=== PATIENT | male | born 1945 | race Caucasian/White ===

== ENCOUNTER 2018-08-11 08:44 | Emergency (ER) | payer MEDICARE ==
[2018-08-11 09:40] LABS: ALT (SGPT) 15 U/L (8-55); AST (SGOT) 19 U/L (5-34); Albumin 3.9 g/dL (3.4-4.8); Alkaline Phosphatase 69 U/L (40-150); Anion Gap 14 mmol/L (10-20); BUN (Urea Nitrogen) 18 mg/dL (8.4-25.7); Bilirubin, Total 0.6 mg/dL (0.2-1.2); CK (CPK) 168 U/L (30-200); Calc. Creatinine Clearance 0 mL/min (70-130); Calcium 9.8 mg/dL (7.8-10.44); Carbon Dioxide 24 mmol/L (23-31); Chloride 105 mmol/L (98-107); Estimated GFR-MDRD 68; Globulin 2.8 g/dL (2.4-3.5); Glucose 127 mg/dL (83-110); Potassium 4.3 mmol/L (3.5-5.1); Protein, Total 6.7 g/dL (5.8-8.1); Sodium 139 mmol/L (136-145)
[2018-08-11 09:44] LABS: CKMB 2.6 ng/mL (0-6.6); Troponin I Less than 0.010 ng/mL (< 0.028)
[2018-08-11 09:45] LABS: Band 10 % (5-11); Eosinophils 3 % (0-10); Hemoglobin 15.1 g/dL (14.0-18.0); Lymphocytes 10 % (21-51); MDiff Complete? YES; Mean Corpuscular HGB CONC 31.7 g/dL (32.0-36.0); Mean Corpuscular Hemoglobin 29.4 pg (27.0-31.0); Mean Corpuscular Volume 92.8 fL (78.0-98.0); Monocytes 6 % (0-10); Neutrophil 68 % (42-75); Platelet Count 190 thou/uL (130-400); RBC Distribution Width 13.4 % (11.5-14.5); RBC Morphology Normal; Reactive Lymphocytes 2 % (0-10); Red Blood Cell (RBC) Count 5.13 mill/uL (4.70-6.10); White Blood Cell (WBC) Count 10.7 thou/uL (4.8-10.8)
[2018-08-11] MEDS ORDERED: methylPREDNISolone Sod Succ/PF 125 MG/2 ML VIAL ONE (09:58)
--- NOTE | 2018-08-11 10:02 | RAD ---
CHEST 1 VIEW: HISTORY: Chest pain. COMPARISON: Radiograph 11/21/2017. FINDINGS: Heart size is enlarged. Mild pulmonary venous congestion. Calcified granuloma right mid lung. IMPRESSION: Mild cardiomegaly. POS: [facility]
[2018-08-11 10:49] LABS: INR-International Normal Ratio 2.6; PTT 41.7 SEC (22.9-36.1); Prothrombin Time 27.5 SEC (12.0-14.7)
== END 2018-08-11 12:25 | disposition home or self-care (01) ==
LOC: ERS 08:44
DX: J40 Bronchitis, not specified as acute or chronic (principal); I48.91 Unspecified atrial fibrillation; E78.5 Hyperlipidemia, unspecified; I25.10 Atherosclerotic heart disease of native coronary artery without angina pectoris; I11.0 Hypertensive heart disease with heart failure; I50.9 Heart failure, unspecified; F17.220 Nicotine dependence, chewing tobacco, uncomplicated; Z79.899 Other long term (current) drug therapy; Z79.82 Long term (current) use of aspirin; Z79.01 Long term (current) use of anticoagulants
CPT/HCPCS: 36415; 71045; 80053; 82553; 83880; 84484; 85025; 85610; 85730; 93005; 94640; 94760; 96374; J2930; J7620

== ENCOUNTER 2018-08-17 16:46 | Inpatient (IN) | payer MEDICARE ==
[2018-08-17] MEDS ORDERED: Albuterol Sulfate 2.5 mg/3 ml Neb ONE (17:07)
[2018-08-17 17:18] LABS: Actual Bicarbonate (HCO3a) 28.7 mEq/L (22-28); Analyzer IN Cardio ER; Base Excess (BEa) 4.5 mEq/L (-2.0 to +3.0); CO2 Tension 41.3 mmHg (35.0-45.0); Calcium, Ionized 1.23 mmol/L (1.12-1.30); Carboxyhemoglobin (COHb) 0.5 gm% (0.0-3.0); Hemoglobin (Hb) 16.2 g/dL (14.0-18.0); O2 Tension (PaO2) 79.7 mmHg (> 70.0); Potassium - ABG Lab 3.65 mmol/L (3.70-5.30); pH, Arterial 7.46 (7.35-7.45)
[2018-08-17] MEDS ORDERED: Magnesium 2 GM/50 ML BAG (IN WATER) ONE (17:24)
[2018-08-17] MEDS ORDERED: Dexamethasone 10 MG/ML VIAL ONE (17:24)
[2018-08-17 17:27] LABS: ALV-art Gradient 18.405 (0-20); Puncture Site RRA
[2018-08-17 17:48] LABS: #Basophils 0.1 thou/uL (0.0-0.2); #Eosinphils 0.1 thou/uL (0.0-0.7); #Lymphocytes 1.9 thou/uL (1.20-3.40); #Monocytes 0.7 thou/uL (0.11-0.59); #Neutrophils 12.5 thou/uL (1.40-6.50); %Basophils 0.4 % (0.0-1.0); %Eosinophils 0.7 % (0.0-10.0); %Lymphocytes 12.4 % (21.0-51.0); %Monocytes 4.8 % (0.0-10.0); %Neutrophils 81.7 % (42.0-75.0); Hemoglobin 15.5 g/dL (14.0-18.0); Mean Corpuscular HGB CONC 31.2 g/dL (32.0-36.0); Mean Corpuscular Hemoglobin 28.7 pg (27.0-31.0); Mean Corpuscular Volume 91.9 fL (78.0-98.0); Mean Platelet Volume 6.7 fL (7.4-10.4); Platelet Count 313 thou/uL (130-400); RBC Distribution Width 13.3 % (11.5-14.5); Red Blood Cell (RBC) Count 5.41 mill/uL (4.70-6.10); White Blood Cell (WBC) Count 15.3 thou/uL (4.8-10.8)
--- NOTE | 2018-08-17 18:00 | RAD ---
PORTABLE FRONTAL CHEST RADIOGRAPH: 08/17/2018 HISTORY: Dyspnea. History of pneumonia. COMPARISON: 08/11/2018 FINDINGS: The lungs are hyperinflated. The cardiac silhouette is prominent. There is increased linear interst itial density bilaterally. These findings are stable and suggest COPD in the proper clinical setting . There is atherosclerotic calcification of the aortic arch. No pneumothorax, pleural fluid, focal consolidation, or alveolar edema. IMPRESSION: 1. Chronic findings, as detailed above. 2. No focal consolidation or alveolar edema. POS: [facility]
[2018-08-17] MEDS ORDERED: Azithromycin 500 MG VIAL ONE (18:01)
[2018-08-17 18:12] LABS: ALT (SGPT) 43 U/L (8-55); AST (SGOT) 20 U/L (5-34); Albumin 3.7 g/dL (3.4-4.8); Alkaline Phosphatase 67 U/L (40-150); Anion Gap 14 mmol/L (10-20); BUN (Urea Nitrogen) 30 mg/dL (8.4-25.7); Bilirubin, Total 0.8 mg/dL (0.2-1.2); CK (CPK) 122 U/L (30-200); Calc. Creatinine Clearance 0 mL/min (70-130); Calcium 9.8 mg/dL (7.8-10.44); Carbon Dioxide 27 mmol/L (23-31); Chloride 103 mmol/L (98-107); Estimated GFR-MDRD 64; Globulin 2.7 g/dL (2.4-3.5); Glucose 164 mg/dL (83-110); Lipase 17 U/L (8-78); Potassium 3.6 mmol/L (3.5-5.1); Protein, Total 6.4 g/dL (5.8-8.1); Sodium 140 mmol/L (136-145)
[2018-08-17 18:13] LABS: CKMB 2.4 ng/mL (0-6.6); Troponin I Less than 0.010 ng/mL (< 0.028)
[2018-08-17] MEDS ORDERED: Clindamycin/D5W 900 mg/50 ml Premix Bag ONE (19:32)
[2018-08-17 20:31] LABS: Bilirubin Negative (Negative); Blood, Urine Negative (Negative); Clarity CLEAR (Clear); Glucose, Urine (Dipstick) 100 mg/dL (Negative); Leukocyte Trace (Negative); Nitrite Negative (Negative); Protein, Urine (Dipstick) Negative (Neg-Trace); Specific Gravity, Urine 1.024 (1.002-1.036); pH, Urine 5.5 (5.0-9.0)
[2018-08-17 20:32] LABS: Bacteria/HPF None Seen HPF (None Seen); Hyaline Casts/LPF 0-3 HYALINE CAST LPF (0-3 Hyaline); RBC/HPF 0-3 HPF (0-3); Squamous Epithelial None Seen HPF (0-3); WBC/HPF 0-3 HPF (0-3)
[2018-08-17] MEDS ORDERED: Nitroglycerin 0.4 MG TAB (25 Tab Bottle) SL PRN (21:01)
[2018-08-17] MEDS ORDERED: traMADol HCl 50 MG TAB PO PRN (21:01)
[2018-08-17] MEDS ORDERED: Calcium Carbonate 500 MG ChewTAB PO PRN (21:03)
[2018-08-17] MEDS ORDERED: Ondansetron ODT 4 MG TAB PO PRN (21:03)
[2018-08-17] MEDS ORDERED: Ondansetron PF 4 MG/2 ML Vial IVP PRN (21:03)
[2018-08-17] MEDS ORDERED: Acetaminophen 325 MG TAB PO PRN (21:03)
[2018-08-17] MEDS ORDERED: Benzonatate 100 MG CAP PO PRN (21:06)
[2018-08-17 21:54] VITALS: BMI 52.2
--- NOTE | 2018-08-18 00:06 | HP ---
CHIEF COMPLAINT: Shortness of breath, cough. HISTORY OF PRESENT ILLNESS: This is a 73-year-old male with past medical history of coronary artery disease, atrial fibrillation, status post ablation, hypertension, obesity, heart failure presenting with shortness of breath and cough. Per the patient, he has been having productive cough in the past week. Patient states that he was in the ED and was evaluated for the cough and patient states that he was offered to be admitted to the hospital; however, patient states that he was not willing to stay, so he went home and was prescribed p.o. antibiotics. Patient states that he took the antibiotics as was prescribed and he followed all the instructions. However, patient is now having severe cough with productive sputum, greenish in color, and cough has really worsened, so that prompted him to come to the ED once again. At this point, patient endorses subjective fevers, productive cough, shortness of breath , bilateral lower edema. Otherwise, patient denies any dizziness, headaches, chills, chest pain, palpitations, abdominal pain, hematochezia, hematuria, melena. REVIEW OF SYSTEMS: Positive for productive cough, subjective fevers, bilateral lower extremity edema. Otherwise, as documented in the HPI. All other systems were reviewed and are negative. PAST MEDICAL HISTORY: Heart failure; hypertension; obesity; coronary artery disease; atrial fibrillation, status post ablation on warfarin; arthritis of the knee; and gout. FAMILY HISTORY: Reviewed and noncontributory to this visit. PAST SURGICAL HISTORY: Ablation of atrial fibrillation in the s, bowel perforation, and total umbilical hernia repairs. PSYCHIATRIC HISTORY: No psych history. SOCIAL HISTORY: Patient states that he quit smoking 35 years ago; however, patient was dipping and he stopped dipping for some time, but he started dipping once again. Patient also states that he quit alcohol 40 years ago and he does not do any illicit drugs. Patient lives at home with his grand kids. CURRENT MEDICATIONS: Patient takes lisinopril/hydrochlorothiazide 20/12.5 mg, aspirin 81 mg, warfarin 7.5 mg, Nitrostat 0.4 sublingual, furosemide 20 mg, carvedilol 6.25 mg, doxycycline 100 mg. ALLERGIES: Patient is allergic to PENICILLINS and IODINE. PHYSICAL EXAMINATION: VITAL SIGNS: Blood pressure is 209/108, heart rate of 90, respiratory rate of 20, temperature of 98.7, O2 sat of 96. GENERAL: Patient is sitting in his bed, does not appear to be in any acute distress. Patient is speaking full sentences. HEENT: Normocephalic, atraumatic. Pupils are equally round and react to light. Extraocular movements are intact. No scleral icterus. No conjunctival pallor. NECK: Supple. No JVD. Full range of motion. No tenderness. LUNGS: Patient has bilateral wheezes at the anterior lung sandy and rales at the posterior lung sandy. CARDIOVASCULAR: S1, S2, regular rate and rhythm. No murmurs, no gallops or rubs appreciated. ABDOMEN: Obese abdomen, soft, nontender, and nondistended. EXTREMITIES: Patient has 5/5 upper extremity strength, good pulses bilaterally at the radial pulse. For the lower extremities, patient has 5/5 lower extremity strength. Patient has 3+ pitting edema and patient is wearing compression stockings. PSYCHIATRIC: Alert and oriented x3, not in acute distress. HEENT: Normal affect. NEUROLOGIC: Cranial nerves II through XII grossly intact. No neurologic deficits noted. SKIN: Warm, dry, and intact. LABORATORY DATA: WBC is 15.3, hemoglobin is 15.5, hematocrit is 49.8, platelets 313. ABG: pH is 7.46, pCO2 is 41, pO2 is 79.7. Sodium is 140, potassium is 3.6, chloride is 103, carbon dioxide of 27, anion gap of 14, BUN is 30, creatinine is 1.13, GFR is 64, glucose 164. Lactic acid is 1.9, AST 20, ALT is 43, alkaline phosphatase 67. Creatine kinase is 122. BNP is 57, lipase of 17. Urinalysis negative for nitrite, trace leukoesterase. ASSESSMENT AND PLAN: This is a 73-year-old male being admitted for: 1. Healthcare-associated pneumonia. Patient was recently in the hospital a week ago and patient was given p.o. antibiotics. Patient states that he really took the antibiotics, but he has not getting better. Patient states that shortness of breath has been at the worse. At this point, we started patient on antibiotics. We are going to continue patient on antibiotics. We are going to follow up cultures. We will follow up with patient's current management. 2. Coronary artery disease, currently stable. We will monitor the patient. 3. Chronic heart failure, likely systolic. At this point, we have ordered an echo. We will follow up on echo results. We will continue patient on current management. 4. Chronic obstructive pulmonary disease, exacerbation. We will continue patient on DuoNeb and we will do steroids p.r.n. 5. History of gout. We will continue to monitor the patient accordingly. 6. Atrial fibrillation, status post ablation. We will continue patient on warfarin. 7. Deep venous thrombosis and gastrointestinal prophylaxis. MTDD
[2018-08-18 04:42] LABS: #Eosinphils 0.1 thou/uL (0.0-0.7); #Lymphocytes 0.7 thou/uL (1.20-3.40); #Monocytes 0.1 thou/uL (0.11-0.59); #Neutrophils 10.6 thou/uL (1.40-6.50); %Basophils 0.1 % (0.0-1.0); %Eosinophils 0.5 % (0.0-10.0); %Lymphocytes 6.1 % (21.0-51.0); %Monocytes 0.9 % (0.0-10.0); %Neutrophils 92.5 % (42.0-75.0); Mean Corpuscular HGB CONC 30.5 g/dL (32.0-36.0); Mean Corpuscular Hemoglobin 28.2 pg (27.0-31.0); Mean Corpuscular Volume 92.6 fL (78.0-98.0); Mean Platelet Volume 7.1 fL (7.4-10.4); Platelet Count 268 thou/uL (130-400); RBC Distribution Width 13.4 % (11.5-14.5); Red Blood Cell (RBC) Count 5.33 mill/uL (4.70-6.10); White Blood Cell (WBC) Count 11.5 thou/uL (4.8-10.8)
[2018-08-18 04:43] LABS: INR-International Normal Ratio 2.6; Prothrombin Time 27.8 SEC (12.0-14.7)
[2018-08-18 04:49] LABS: Anion Gap 11 mmol/L (10-20); BUN (Urea Nitrogen) 28 mg/dL (8.4-25.7); Calc. Creatinine Clearance 148 mL/min (70-130); Calcium 9.6 mg/dL (7.8-10.44); Carbon Dioxide 29 mmol/L (23-31); Chloride 104 mmol/L (98-107); Estimated GFR-MDRD 62; Glucose 216 mg/dL (83-110); Potassium 4.1 mmol/L (3.5-5.1); Sodium 140 mmol/L (136-145)
[2018-08-18] MEDS: Furosemide 40 MG TAB PO SCH ×2 (05:07→12:57)
[2018-08-18] MEDS: Aztreonam 1 GM in Sodium Chloride 0.9% 100 ML IVPB SCH ×3 (05:15→21:58)
[2018-08-18] MEDS: Famotidine 20 MG TAB PO SCH ×2 (10:19→21:58)
[2018-08-18] MEDS: Colchicine 0.6 MG TAB PO SCH ×2 (10:19→21:58)
[2018-08-18] MEDS: Aspirin 81 mg Enteric Coated Tablet PO SCH (10:19)
[2018-08-18] MEDS: Carvedilol 6.25 MG TAB PO SCH ×2 (10:19→21:58)
[2018-08-18] MEDS: Famotidine/PF 20 mg/2ml Vial SLOW IVP SCH ×2 (10:20→21:58)
[2018-08-18] MEDS: Lisinopril/Hydrochlorothiazide 20 mg/12.5 mg Tablet PO SCH ×2 (10:20→21:57)
[2018-08-18] MEDS: Warfarin Sodium 7.5 MG TAB PO SCH (17:35)
[2018-08-18] MEDS: Azithromycin 500 MG in Sodium Chloride 0.9% 250 ML 250 ML IVPB SCH (17:35)
--- NOTE | 2018-08-18 21:58 | PDOC.PN ---
- Subjective Encounter Start Date: 08/18/18 Encounter Start Time: 08:10 Doing ok. Reports he has been having significant [place]. Still has some cough with discolored sputum. Has had some swelling in the LE's. Has a "knot" in the pannus of his abdomen. Says his main goal is to get to the point he can get a bariatric surgery. - Objective Resuscitation Status: Resuscitation Status FULL:Full Resuscitation Vital Signs & Weight: Vital Signs (12 hours) Temp Pulse Resp BP BP Pulse Ox 08/18/18 18:53 81 20 98 08/18/18 16:00 98.0 F 75 20 147/79 H 99 08/18/18 14:20 80 16 08/18/18 12:36 98.0 F 82 20 150/76 H 95 08/18/18 10:20 77 165/93 H 08/18/18 10:19 165/93 H 08/18/18 10:11 90 16 Weight Weight 406 lb 14.4 oz I&O: 08/17/18 08/18/18 08/19/18 06:59 06:59 06:59 Intake Total 600 660 Output Total 400 Balance 200 660 Result Diagrams: 08/18/18 04:06 08/18/18 04:06 Phys Exam - Physical Examination Constitutional: NAD Morbidly obese. Respiratory: no wheezing, no rales, no rhonchi, clear to auscultation bilateral Compromised exam due to obesity. Cardiovascular: RRR, no significant murmur Gastrointestinal: soft, non-tender Obese. Indurated area at the mid-left pendulous abd. pannus. No erythema. No fluctuance. No drainage. 2+ edema BLE Neurological: non-focal, normal sensation Psychiatric: normal affect, A&O x 3 Dx/Plan (1) Bronchitis Code(s): J40 - BRONCHITIS, NOT SPECIFIED ACUTE OR CHRONIC Status: Acute Comment: Initially looked like pneumonia, but CXR is clear. Continue abx. (2) Atrial fibrillation Code(s): I48.91 - UNSPECIFIED ATRIAL FIBRILLATION Status: Chronic Qualifiers: Atrial fibrillation type: paroxysmal Qualified Code(s): I48.0 - Paroxysmal atrial fibrillation Comment: S/P ablation. NSR now. Still on anticoag. (3) Coronary artery disease Code(s): I25.10 - ATHSCL HEART DISEASE OF [place] CORONARY ARTERY W/O ANG PCTRS Status: Chronic Comment: Had a assistant signal maintainer, but has moved away. He has not had a local assistant signal maintainer for a long while. (4) Hypertension Code(s): I10 - ESSENTIAL (PRIMARY) HYPERTENSION Status: Chronic Comment: zeny Harp. (5) Morbid obesity with BMI of 45.0-49.9, adult Code(s): E66.01 - MORBID (SEVERE) OBESITY DUE TO EXCESS CALORIES; Z68.42 - BODY MASS INDEX (BMI) 45.0-49.9, ADULT Status: Chronic (6) CHF (congestive heart failure) Code(s): I50.9 - HEART FAILURE, UNSPECIFIED Status: Acute Comment: veronica Harp. Echo pending. Cardiology consult. BNP is normal. (7) COPD (chronic obstructive pulmonary disease) Status: Acute Comment: Steroids, nebs. - Plan * .
--- NOTE | 2018-08-19 01:39 | CON ---
DATE OF CONSULTATION: 08/18/2018 REASON FOR CONSULTATION: Atrial fibrillation, shortness of breath, morbid obesity. HISTORY OF PRESENT ILLNESS: Mr. Acuña is a 73-year-old man. He was admitted to hospital with diff iculty breathing and thought to have pneumonia and is receiving antibiotics. The patient states he h as had atrial fibrillation since he is in his 20s. He had an atrial fibrillation ablation many years ago, but apparently he is in chronic atrial fibrillation, is on Coumadin. The patient is receiving intravenous antibiotics. PAST MEDICAL HISTORY: 1. Chronic atrial fibrillation. 2. Morbid obesity. He says he wishes to be considered for bariatric surgery. 3. 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 4. History of gout. HOME MEDICATIONS: 1. Furosemide. 2. Carvedilol. 3. Warfarin. 4. Lisinopril. 5. HCT. 6. Aspirin. 7. Colchicine. REVIEW OF SYSTEMS: Constitutional: Positive for severe obesity. Vision: No changes. Hearing: No changes. Pulmonary: No cough or wheezing. Gastrointestinal: No nausea, vomiting, or diarrhea. S kin: No rashes. Neurologic: No unilateral weakness or numbness. Psychiatric: No unusual depressi on or anxiety. Hematologic: No unusual bruising. PHYSICAL EXAMINATION: GENERAL: This is a pleasant, but extremely overweight gentleman, 6 feet 2 inches tall, so I think wh at he estimated 406 pounds, BMI 52, morbid obesity. VITAL SIGNS: Blood pressure 147/79, pulse 80, irregular. LUNGS: Clear. CARDIAC: Normal S1, normal S2, but it is irregular. No murmur, rub, or gallop. Heart sounds are di stant. ABDOMEN: Severe obesity. EXTREMITIES: No clubbing or cyanosis. There is moderate edema. I do not feel peripheral pulses, al though it has edema and severe obesity, it is difficult to feel pulses. PERTINENT LABORATORY AND X-RAY FINDINGS: Blood gas pH 7.46, pCO2 of 41, pO2 of 79.7. INR is 2.6, cr eatinine is 1.16. Potassium is 4.1. EKG reveals atrial fibrillation with a controlled ventricular r esponse. Echocardiogram reveals atrial fibrillation with normal left ventricular function. ASSESSMENT: 1. Chronic atrial fibrillation. 2. Severe morbid obesity. 3. BNP is normal. PLAN: 1. Continue current medical regimen with antibiotics. 2. He also receiving some diuretics. 3. He may wish to be considered for bariatric surgery. Stress testing will not be feasible at this weight. Cardiac catheterization from the radial artery could be done as an outpatient.
[2018-08-19] MEDS: Aztreonam 1 GM in Sodium Chloride 0.9% 100 ML IVPB SCH ×3 (05:40→22:10)
[2018-08-19] MEDS: Furosemide 40 MG TAB PO SCH ×2 (05:42→14:07)
[2018-08-19 08:35] LABS: INR-International Normal Ratio 2.7
[2018-08-19] MEDS: Colchicine 0.6 MG TAB PO SCH ×2 (08:47→22:15)
[2018-08-19] MEDS: Carvedilol 6.25 MG TAB PO SCH ×2 (08:47→22:14)
[2018-08-19] MEDS: Aspirin 81 mg Enteric Coated Tablet PO SCH (08:47)
[2018-08-19] MEDS: Famotidine 20 MG TAB PO SCH ×2 (08:47→22:15)
[2018-08-19] MEDS: Lisinopril/Hydrochlorothiazide 20 mg/12.5 mg Tablet PO SCH ×2 (08:49→22:14)
[2018-08-19] MEDS: Famotidine/PF 20 mg/2ml Vial SLOW IVP SCH ×2 (08:52→22:15)
--- NOTE | 2018-08-19 10:43 | PDOC.PN ---
- Subjective Encounter Start Date: 08/19/18 Encounter Start Time: 09:00 -: old records requested/rev Patient seen and examined. No new complaints. No overnight events pt feels better, less dyspnea - Objective Resuscitation Status: Resuscitation Status FULL:Full Resuscitation MAR Reviewed: Yes Vital Signs & Weight: Vital Signs (12 hours) Temp Pulse Resp BP BP Pulse Ox 08/19/18 10:19 80 14 08/19/18 08:49 87 183/86 H 08/19/18 08:47 183/86 H 08/19/18 07:58 98.0 F 87 18 183/86 H 93 L 08/19/18 06:34 80 14 08/19/18 05:00 97.5 F L 63 18 158/74 H 95 08/19/18 02:02 99 20 93 L Weight Weight 408 lb 1 oz I&O: 08/18/18 08/19/18 08/20/18 06:59 06:59 06:59 Intake Total 600 980 Output Total 400 800 Balance 200 180 Result Diagrams: 08/18/18 04:06 08/18/18 04:06 Phys Exam - Physical Examination Constitutional: NAD HEENT: PERRLA, moist MMs, sclera anicteric Neck: no JVD, supple Respiratory: no wheezing, no rales, no rhonchi limited due to obesity Cardiovascular: RRR, no significant murmur, no rub limited due to obesity Gastrointestinal: soft, non-tender, no distention, positive bowel sounds morbid obesity Musculoskeletal: pulses present, edema present Neurological: non-focal, normal sensation, moves all 4 limbs Lymphatic: no nodes Psychiatric: normal affect, A&O x 3 Skin: no rash, normal turgor Dx/Plan (1) Bronchitis Code(s): J40 - BRONCHITIS, NOT SPECIFIED ACUTE OR CHRONIC Status: Acute Comment: (2) Pneumonia Code(s): J18.9 - PNEUMONIA, UNSPECIFIED ORGANISM Status: Acute (3) Atrial fibrillation Code(s): I48.91 - UNSPECIFIED ATRIAL FIBRILLATION Status: Chronic Qualifiers: Atrial fibrillation type: paroxysmal Qualified Code(s): I48.0 - Paroxysmal atrial fibrillation Comment: (4) COPD (chronic obstructive pulmonary disease) Status: Chronic Comment: Steroids, nebs. (5) Chronic venous stasis dermatitis Code(s): I83.10 - VARICOSE VEINS OF [place] LOWER EXTREMITY WITH INFLAMMATION Status: Chronic (6) Coronary artery disease Code(s): I25.10 - ATHSCL HEART DISEASE OF [place] CORONARY ARTERY W/O ANG PCTRS Status: Chronic Comment: Had a engineering technical analyst, but has moved away. He has not had a local engineering technical analyst for a long while. (7) Gout Code(s): M10.9 - GOUT, UNSPECIFIED Status: Chronic Qualifiers: Gout site: foot Chronicity: acute Laterality: right Qualified Code(s): M10.9 - Gout, unspecified (8) Hypertension Code(s): I10 - ESSENTIAL (PRIMARY) HYPERTENSION Status: Chronic Comment: (9) Morbid obesity with BMI of 50.0-59.9, adult Code(s): E66.01 - MORBID (SEVERE) OBESITY DUE TO EXCESS CALORIES; Z68.43 - BODY MASS INDEX (BMI) 50-59.9, ADULT Status: Chronic - Plan cont current plan of care, continue antibiotics, respiratory therapy * continue IV antibiotics today * reduce solumedrol today * continue lasix * medication reviewed as below * symptomatic treatment * outpt cardiac cath * pt is improving. Review of Systems - Review of Systems Constitutional: negative: fever, chills, sweats, weakness, malaise, other Eyes: negative: Pain, Vision Change, Conjunctivae Inflammation, Eyelid Inflammation, Redness, Other ENT: negative: Ear Pain, Ear Discharge, Nose Pain, Nose Discharge, Nose Congestion, Mouth Pain, Mouth Swelling, Throat Pain, Throat Swelling, Other Respiratory: Cough, SOB with Excertion. negative: Dry, Shortness of Breath, Hemoptysis, Pleuritic Pain, Sputum, Wheezing Cardiovascular: negative: chest pain, palpitations, orthopnea, paroxysmal nocturnal dyspnea, edema, light headedness, other Gastrointestinal: negative: Nausea, Vomiting, Abdominal Pain, Diarrhea, Constipation, Melena, Hematochezia, Other Genitourinary: negative: Dysuria, Frequency, Incontinence, Hematuria, Retention , Other Musculoskeletal: negative: Neck Pain, Shoulder Pain, Arm Pain, Back Pain, Hand Pain, Leg Pain, Foot Pain, Other Skin: negative: Rash, Lesions, Paco, Bruising, Other - Medications/Allergies Allergies/Adverse Reactions: Allergies Allergy/AdvReac Type Severity Reaction Status Date / Time Iodine and Iodide Containing Allergy Nausea Verified 08/17/18 21:52 Produc Penicillins Allergy Rash Verified 08/17/18 21:52 Medications: Current Medications Acetaminophen (Tylenol) 650 mg PO Q4H PRN PRN Reason: Headache/Fever/Mild Pain (1-3) Albuterol/Ipratropium (Duoneb) 3 ml NEB [id number] [facility] Last Admin: 08/19/18 10:19 Dose: 3 ml Aspirin (Ecotrin) 81 mg PO DAILY [facility] Last Admin: 08/19/18 08:47 Dose: 81 mg Benzonatate (Tessalon) 100 mg PO TIDPRN PRN PRN Reason: Cough Last Admin: 08/18/18 05:06 Dose: 100 mg Calcium Carbonate (Tums) 1,000 mg PO Q4H PRN PRN Reason: Heartburn or Indigestion Carvedilol (Coreg) 6.25 mg PO BID [facility] Last Admin: 08/19/18 08:47 Dose: 6.25 mg Colchicine (Colcrys) 0.6 mg PO BID [facility] Last Admin: 08/19/18 08:47 Dose: 0.6 mg Famotidine (Pepcid) 20 mg SLOW IVP Q12HR [facility] Last Admin: 08/19/18 08:52 Dose: Not Given Famotidine (Pepcid) 20 mg PO BID [facility] Last Admin: 08/19/18 08:47 Dose: 20 mg Furosemide (Lasix) 40 mg PO 0600,1400 [facility] Last Admin: 08/19/18 05:42 Dose: 40 mg Lisinopril/HCTZ (Prinizide 20-12.5) 1 tab PO BID [facility] Last Admin: 08/19/18 08:49 Dose: 1 tab Azithromycin 500 mg/ Sodium (Chloride) 250 mls @ 250 mls/hr IVPB Q24HR [facility] Last Admin: 08/18/18 17:35 Dose: 250 mls Aztreonam 1 gm/ Sodium (Chloride) 100 mls @ 100 mls/hr IVPB Q8HR [facility] Last Admin: 08/19/18 05:40 Dose: 100 mls Methylprednisolone Sodium Succinate (Solu-Medrol) 40 mg IVP Q6HR [facility] Last Admin: 08/19/18 05:40 Dose: 40 mg Miscellaneous Medication (Pharmacy To Dose) 1 each IVPB PRN PRN PRN Reason: Pharmacy to dose Nitroglycerin (Nitrostat) 0.4 mg SL Q5MIN PRN PRN Reason: Chest Pain Ondansetron HCl (Zofran Odt) 4 mg PO Q6H PRN PRN Reason: Nausea/Vomiting Ondansetron HCl (Zofran) 4 mg IVP Q6H PRN PRN Reason: Nausea/Vomiting Sodium Chloride (Flush - Normal Saline) 10 ml IVF Q12HR PRN PRN Reason: Saline Flush Sodium Chloride (Flush - Normal Saline) 10 ml IVF PRN PRN PRN Reason: Saline Flush Tramadol HCl (Ultram) 50 mg PO BID PRN PRN Reason: Moderate Pain (4-6) Warfarin Sodium (Coumadin) 7.5 mg PO 1700 [facility] Last Admin: 08/18/18 17:35 Dose: 7.5 mg
[2018-08-19] MEDS: Warfarin Sodium 7.5 MG TAB PO SCH (17:19)
[2018-08-19] MEDS: Azithromycin 500 MG in Sodium Chloride 0.9% 250 ML 250 ML IVPB SCH (17:20)
[2018-08-20] MEDS: Aztreonam 1 GM in Sodium Chloride 0.9% 100 ML IVPB SCH ×3 (05:16→21:33)
[2018-08-20] MEDS: Furosemide 40 MG TAB PO SCH ×2 (05:16→14:24)
[2018-08-20 06:34] LABS: INR-International Normal Ratio 2.7; Prothrombin Time 28.3 SEC (12.0-14.7)
[2018-08-20] MEDS: Famotidine 20 MG TAB PO SCH ×2 (08:14→20:39)
[2018-08-20] MEDS: Famotidine/PF 20 mg/2ml Vial SLOW IVP SCH ×2 (08:14→20:41)
[2018-08-20] MEDS: Aspirin 81 mg Enteric Coated Tablet PO SCH (08:14)
[2018-08-20] MEDS: Colchicine 0.6 MG TAB PO SCH ×2 (08:14→20:39)
[2018-08-20] MEDS: Carvedilol 6.25 MG TAB PO SCH ×2 (08:14→20:39)
[2018-08-20] MEDS: Lisinopril/Hydrochlorothiazide 20 mg/12.5 mg Tablet PO SCH ×2 (09:10→20:38)
--- NOTE | 2018-08-20 10:11 | PRG ---
DATE OF SERVICE: 08/20/2018 Mr. Acuña is doing better, feels better. PHYSICAL EXAMINATION: VITAL SIGNS: Blood pressure is high 177/69, pulse 90, it is irregular. ABDOMEN: Morbid obesity. EXTREMITIES: Moderate to severe edema. Looks like some of it is lymphedema. ASSESSMENT: 1. Chronic atrial fibrillation. 2. Bronchitis. 3. Chewing tobacco. 4. Wishes to have bariatric surgery. 5. Normal left ventricular function. PLAN: 1. Will likely need cardiac catheterization for cardiac clearance at 406 pounds, really too large to successfully stress. The equipment does not handle this weight. 2. Continue current medicines with heart rate control and anticoagulation as he has been doing along with diuretics to help with edema. I gave the patient my card. I would be glad to see him in the of fice, probably line up a heart catheterization radial with Dr. Seay. It would be extremely difficu lt to do from the groin due to his body size. He has a very good radial pulse.
--- NOTE | 2018-08-20 10:59 | PDOC.PN ---
- Subjective Encounter Start Date: 08/20/18 Encounter Start Time: 09:50 Patient seen and examined. No new complaints. No overnight events - Objective Resuscitation Status: Resuscitation Status FULL:Full Resuscitation MAR Reviewed: Yes Vital Signs & Weight: Vital Signs (12 hours) Temp Pulse Resp BP BP Pulse Ox 08/20/18 10:18 86 16 96 08/20/18 09:10 177/69 H 08/20/18 08:14 177/69 H 08/20/18 08:00 95 08/20/18 07:55 97.9 F 91 18 177/69 H 95 08/20/18 06:32 63 16 96 08/20/18 02:36 63 14 95 Weight Weight 406 lb 9 oz I&O: 08/19/18 08/20/18 08/21/18 06:59 06:59 06:59 Intake Total 980 1730 Output Total 800 1400 Balance 180 330 Result Diagrams: 08/18/18 04:06 08/18/18 04:06 Phys Exam - Physical Examination Constitutional: NAD HEENT: PERRLA, moist MMs, sclera anicteric Neck: no JVD, supple Respiratory: no wheezing, no rales, no rhonchi Cardiovascular: RRR, no significant murmur, no rub Gastrointestinal: soft, non-tender, no distention, positive bowel sounds morbid obesity limiting exam Musculoskeletal: pulses present, edema present Neurological: non-focal, normal sensation Lymphatic: no nodes Psychiatric: normal affect, A&O x 3 Skin: no rash, normal turgor Dx/Plan (1) Bronchitis Code(s): J40 - BRONCHITIS, NOT SPECIFIED ACUTE OR CHRONIC Status: Acute Comment: (2) Pneumonia Code(s): J18.9 - PNEUMONIA, UNSPECIFIED ORGANISM Status: Acute (3) Atrial fibrillation Code(s): I48.91 - UNSPECIFIED ATRIAL FIBRILLATION Status: Chronic Qualifiers: Atrial fibrillation type: paroxysmal Qualified Code(s): I48.0 - Paroxysmal atrial fibrillation Comment: (4) COPD (chronic obstructive pulmonary disease) Status: Chronic Comment: Steroids, nebs. (5) Chronic venous stasis dermatitis Code(s): I83.10 - VARICOSE VEINS OF UNSP LOWER EXTREMITY WITH INFLAMMATION Status: Chronic (6) Coronary artery disease Code(s): I25.10 - ATHSCL HEART DISEASE OF [place] CORONARY ARTERY W/O ANG PCTRS Status: Chronic Comment: Had a quality checker, but has moved away. He has not had a local quality checker for a long while. (7) Gout Code(s): M10.9 - GOUT, UNSPECIFIED Status: Chronic Qualifiers: Gout site: foot Chronicity: acute Laterality: right Qualified Code(s): M10.9 - Gout, unspecified (8) Hypertension Code(s): I10 - ESSENTIAL (PRIMARY) HYPERTENSION Status: Chronic Comment: (9) Morbid obesity with BMI of 50.0-59.9, adult Code(s): E66.01 - MORBID (SEVERE) OBESITY DUE TO EXCESS CALORIES; Z68.43 - BODY MASS INDEX (BMI) 50-59.9, ADULT Status: Chronic - Plan cont current plan of care, continue antibiotics, respiratory therapy * medication reviewed as below * symptomatic treatment * continue current iv antibiotics, iv solumedrol and lasix * he still needs couple more days in hospital to stabilize. Review of Systems - Review of Systems Constitutional: negative: fever, chills, sweats, weakness, malaise, other Eyes: negative: Pain, Vision Change, Conjunctivae Inflammation, Eyelid Inflammation, Redness, Other Respiratory: Cough, SOB with Excertion. negative: Dry, Shortness of Breath, Hemoptysis, Pleuritic Pain, Sputum, Wheezing Cardiovascular: negative: chest pain, palpitations, orthopnea, paroxysmal nocturnal dyspnea, edema, light headedness, other Gastrointestinal: negative: Nausea, Vomiting, Abdominal Pain, Diarrhea, Constipation, Melena, Hematochezia, Other Genitourinary: negative: Dysuria, Frequency, Incontinence, Hematuria, Retention , Other Musculoskeletal: negative: Neck Pain, Shoulder Pain, Arm Pain, Back Pain, Hand Pain, Leg Pain, Foot Pain, Other - Medications/Allergies Allergies/Adverse Reactions: Allergies Allergy/AdvReac Type Severity Reaction Status Date / Time Iodine and Iodide Containing Allergy Nausea Verified 08/17/18 21:52 Produc Penicillins Allergy Rash Verified 08/17/18 21:52 Medications: Current Medications Acetaminophen (Tylenol) 650 mg PO Q4H PRN PRN Reason: Headache/Fever/Mild Pain (1-3) Albuterol/Ipratropium (Duoneb) 3 ml NEB [id number] [facility] Last Admin: 08/20/18 10:18 Dose: 3 ml Aspirin (Ecotrin) 81 mg PO DAILY [facility] Last Admin: 08/20/18 08:14 Dose: 81 mg Benzonatate (Tessalon) 100 mg PO TIDPRN PRN PRN Reason: Cough Last Admin: 08/18/18 05:06 Dose: 100 mg Calcium Carbonate (Tums) 1,000 mg PO Q4H PRN PRN Reason: Heartburn or Indigestion Carvedilol (Coreg) 6.25 mg PO BID [facility] Last Admin: 08/20/18 08:14 Dose: 6.25 mg Colchicine (Colcrys) 0.6 mg PO BID [facility] Last Admin: 08/20/18 08:14 Dose: 0.6 mg Famotidine (Pepcid) 20 mg SLOW IVP Q12HR [facility] Last Admin: 08/20/18 08:14 Dose: Not Given Famotidine (Pepcid) 20 mg PO BID [facility] Last Admin: 08/20/18 08:14 Dose: 20 mg Furosemide (Lasix) 40 mg PO 0600,1400 [facility] Last Admin: 08/20/18 05:16 Dose: 40 mg Lisinopril/HCTZ (Prinizide 20-12.5) 1 tab PO BID [facility] Last Admin: 08/20/18 09:10 Dose: 1 tab Azithromycin 500 mg/ Sodium (Chloride) 250 mls @ 250 mls/hr IVPB Q24HR [facility] Last Admin: 08/19/18 17:20 Dose: 250 mls Aztreonam 1 gm/ Sodium (Chloride) 100 mls @ 100 mls/hr IVPB Q8HR [facility] Last Admin: 08/20/18 05:16 Dose: 100 mls Methylprednisolone Sodium Succinate (Solu-Medrol) 20 mg IVP Q8HR [facility] Last Admin: 08/20/18 05:16 Dose: 20 mg Miscellaneous Medication (Pharmacy To Dose) 1 each IVPB PRN PRN PRN Reason: Pharmacy to dose Nitroglycerin (Nitrostat) 0.4 mg SL Q5MIN PRN PRN Reason: Chest Pain Ondansetron HCl (Zofran Odt) 4 mg PO Q6H PRN PRN Reason: Nausea/Vomiting Ondansetron HCl (Zofran) 4 mg IVP Q6H PRN PRN Reason: Nausea/Vomiting Sodium Chloride (Flush - Normal Saline) 10 ml IVF Q12HR PRN PRN Reason: Saline Flush Sodium Chloride (Flush - Normal Saline) 10 ml IVF PRN PRN PRN Reason: Saline Flush Tramadol HCl (Ultram) 50 mg PO BID PRN PRN Reason: Moderate Pain (4-6) Warfarin Sodium (Coumadin) 7.5 mg PO 1700 [facility] Last Admin: 08/19/18 17:19 Dose: 7.5 mg
[2018-08-20] MEDS ORDERED: Loperamide HCl 2 MG CAP PO PRN (15:02)
[2018-08-20] MEDS ORDERED: Saccharomyces boulardii 250 MG CAP PO SCH (15:15)
[2018-08-20] MEDS: Azithromycin 500 MG in Sodium Chloride 0.9% 250 ML 250 ML IVPB SCH (17:27)
[2018-08-20] MEDS: Warfarin Sodium 7.5 MG TAB PO SCH (17:27)
[2018-08-21 05:11] LABS: INR-International Normal Ratio 2.7; Prothrombin Time 28.8 SEC (12.0-14.7)
[2018-08-21] MEDS: Furosemide 40 MG TAB PO SCH ×2 (05:29→14:21)
[2018-08-21] MEDS: Aztreonam 1 GM in Sodium Chloride 0.9% 100 ML IVPB SCH (05:30)
[2018-08-21] MEDS ORDERED: Diabetic Tussin 200 MG/10 ML UDCUP PO PRN (07:48)
[2018-08-21] MEDS ORDERED: Artificial Tear Sol 15 ML BOT EA EYE PRN (07:48)
[2018-08-21] MEDS ORDERED: Senokot S 8.6-50 MG TAB PO PRN (07:48)
[2018-08-21] MEDS ORDERED: Acetaminophen 500 MG TAB PO PRN (07:48)
[2018-08-21] MEDS ORDERED: hydrALAZINE 20 MG/ML VIAL SLOW IVP PRN (07:48)
[2018-08-21] MEDS ORDERED: Cepastat Lozenges 1 LOZ PO PRN (07:48)
[2018-08-21] MEDS ORDERED: Loratadine 10 MG TAB PO PRN (07:48)
[2018-08-21] MEDS ORDERED: Diphenoxylate HCl/Atropine Tablet PO PRN (07:48)
[2018-08-21] MEDS ORDERED: Eucerin (Mineral Oil/Petrolatum,White) 30 gm Jar TOP PRN (07:48)
[2018-08-21] MEDS ORDERED: Zolpidem Tartrate 5 MG TAB PO PRN (07:48)
[2018-08-21] MEDS ORDERED: Sodium Chloride 0.65% Nasal 44 ML BOT EA NARE PRN (07:48)
[2018-08-21] MEDS: Saccharomyces boulardii 250 MG CAP PO SCH (08:32)
[2018-08-21] MEDS: Lisinopril/Hydrochlorothiazide 20 mg/12.5 mg Tablet PO SCH ×2 (08:32→20:08)
[2018-08-21] MEDS: Carvedilol 6.25 MG TAB PO SCH ×2 (08:32→20:08)
[2018-08-21] MEDS: Famotidine 20 MG TAB PO SCH ×2 (08:32→20:08)
[2018-08-21] MEDS: Colchicine 0.6 MG TAB PO SCH (08:33)
[2018-08-21] MEDS: predniSONE 20 MG TAB PO SCH (08:33)
[2018-08-21] MEDS: Aspirin 81 mg Enteric Coated Tablet PO SCH (08:33)
--- NOTE | 2018-08-21 09:27 | PDOC.PN ---
- Subjective Encounter Start Date: 08/21/18 Encounter Start Time: 07:10 -: old records requested/rev Patient seen and examined. No new complaints. No overnight events - Objective Resuscitation Status: Resuscitation Status FULL:Full Resuscitation MAR Reviewed: Yes Vital Signs & Weight: Vital Signs (12 hours) Temp Pulse Resp BP BP Pulse Ox 08/21/18 08:32 77 173/85 H 08/21/18 07:35 98.0 F 77 20 173/85 H 96 08/21/18 07:28 78 16 94 L 08/21/18 02:22 79 14 96 08/20/18 23:00 69 18 93 L Weight Weight 407 lb 1.6 oz I&O: 08/20/18 08/21/18 08/22/18 06:59 06:59 06:59 Intake Total 1730 1660 Output Total 1400 2070 Balance 330 -410 Result Diagrams: 08/18/18 04:06 08/18/18 04:06 Phys Exam - Physical Examination Constitutional: NAD HEENT: PERRLA, moist MMs, sclera anicteric Neck: no JVD, supple Respiratory: no wheezing, no rales, no rhonchi Cardiovascular: RRR, no significant murmur, no rub Gastrointestinal: soft, non-tender, no distention, positive bowel sounds obesity+ Musculoskeletal: pulses present, edema present Neurological: non-focal, normal sensation, moves all 4 limbs Psychiatric: normal affect, A&O x 3 Skin: no rash, normal turgor Dx/Plan (1) Bronchitis Code(s): J40 - BRONCHITIS, NOT SPECIFIED ACUTE OR CHRONIC Status: Acute Comment: (2) Pneumonia Code(s): J18.9 - PNEUMONIA, UNSPECIFIED ORGANISM Status: Acute (3) Atrial fibrillation Code(s): I48.91 - UNSPECIFIED ATRIAL FIBRILLATION Status: Chronic Qualifiers: Atrial fibrillation type: paroxysmal Qualified Code(s): I48.0 - Paroxysmal atrial fibrillation Comment: (4) COPD (chronic obstructive pulmonary disease) Status: Chronic Comment: Steroids, nebs. (5) Chronic venous stasis dermatitis Code(s): I83.10 - VARICOSE VEINS OF UNSP LOWER EXTREMITY WITH INFLAMMATION Status: Chronic (6) Coronary artery disease Code(s): I25.10 - ATHSCL HEART DISEASE OF [place] CORONARY ARTERY W/O ANG PCTRS Status: Chronic Comment: Had a nitrator operator, but has moved away. He has not had a local nitrator operator for a long while. (7) Gout Code(s): M10.9 - GOUT, UNSPECIFIED Status: Chronic Qualifiers: Gout site: foot Chronicity: acute Laterality: right Qualified Code(s): M10.9 - Gout, unspecified (8) Hypertension Code(s): I10 - ESSENTIAL (PRIMARY) HYPERTENSION Status: Chronic Comment: (9) Morbid obesity with BMI of 50.0-59.9, adult Code(s): E66.01 - MORBID (SEVERE) OBESITY DUE TO EXCESS CALORIES; Z68.43 - BODY MASS INDEX (BMI) 50-59.9, ADULT Status: Chronic - Plan cont current plan of care, continue antibiotics * medication reviewed as below * symptomatic treatment * will change antibiotics to PO, levaquin * monitor INR * change to po prednisone * expecting discharge tomorrow. Review of Systems - Review of Systems Eyes: negative: Pain, Vision Change, Conjunctivae Inflammation, Eyelid Inflammation, Redness, Other ENT: negative: Ear Pain, Ear Discharge, Nose Pain, Nose Discharge, Nose Congestion, Mouth Pain, Mouth Swelling, Throat Pain, Throat Swelling, Other Respiratory: Cough. negative: Dry, Shortness of Breath, Hemoptysis, SOB with Excertion, Pleuritic Pain, Sputum, Wheezing Cardiovascular: negative: chest pain, palpitations, orthopnea, paroxysmal nocturnal dyspnea, edema, light headedness, other Gastrointestinal: negative: Nausea, Vomiting, Abdominal Pain, Diarrhea, Constipation, Melena, Hematochezia, Other Genitourinary: negative: Dysuria, Frequency, Incontinence, Hematuria, Retention , Other Musculoskeletal: negative: Neck Pain, Shoulder Pain, Arm Pain, Back Pain, Hand Pain, Leg Pain, Foot Pain, Other Skin: negative: Rash, Lesions, Paco, Bruising, Other - Medications/Allergies Allergies/Adverse Reactions: Allergies Allergy/AdvReac Type Severity Reaction Status Date / Time Iodine and Iodide Containing Allergy Nausea Verified 08/17/18 21:52 Produc Penicillins Allergy Rash Verified 08/17/18 21:52 Medications: Current Medications Acetaminophen (Tylenol) 650 mg PO Q4H PRN PRN Reason: Headache/Fever/Mild Pain (1-3) Albuterol/Ipratropium (Duoneb) 3 ml NEB [id number] [facility] Last Admin: 08/21/18 07:28 Dose: 3 ml Artificial Tears (Tears Renewed 15ml Bottle) 2 drop EA EYE PRN PRN PRN Reason: Dry Eyes Aspirin (Ecotrin) 81 mg PO DAILY [facility] Last Admin: 08/21/18 08:33 Dose: 81 mg Benzonatate (Tessalon) 100 mg PO TIDPRN PRN PRN Reason: Cough Last Admin: 08/18/18 05:06 Dose: 100 mg Calcium Carbonate (Tums) 1,000 mg PO Q4H PRN PRN Reason: Heartburn or Indigestion Carvedilol (Coreg) 6.25 mg PO BID [facility] Last Admin: 08/21/18 08:32 Dose: 6.25 mg Colchicine (Colcrys) 0.6 mg PO DAILY [facility] Last Admin: 08/21/18 08:33 Dose: 0.6 mg Diphenoxylate HCl/Atropine (Lomotil) 1 tab PO QIDPRN PRN PRN Reason: Diarrhea/Loose Stools Famotidine (Pepcid) 20 mg PO BID [facility] Last Admin: 08/21/18 08:32 Dose: 20 mg Furosemide (Lasix) 40 mg PO 0600,1400 [facility] Last Admin: 08/21/18 05:29 Dose: 40 mg Guaifenesin (Robitussin Sf) 200 mg PO Q4H PRN PRN Reason: Cough Lisinopril/HCTZ (Prinizide 20-12.5) 1 tab PO BID [facility] Last Admin: 08/21/18 08:32 Dose: 1 tab Hydralazine HCl (Apresoline) 10 mg SLOW IVP Q4H PRN PRN Reason: SBP > 180 and HR < 70 Levofloxacin (Levaquin) 500 mg PO 0600 [facility] Loperamide HCl (Imodium) 2 mg PO Q6H PRN PRN Reason: Diarrhea/Loose Stools Loratadine (Claritin) 10 mg PO DAILYPRN PRN PRN Reason: Sinus Symptoms Mineral Oil/White Petrolatum (Eucerin Cream) 0 gm TOP BIDPRN PRN PRN Reason: Dry Skin Nitroglycerin (Nitrostat) 0.4 mg SL Q5MIN PRN PRN Reason: Chest Pain Ondansetron HCl (Zofran Odt) 4 mg PO Q6H PRN PRN Reason: Nausea/Vomiting Ondansetron HCl (Zofran) 4 mg IVP Q6H PRN PRN Reason: Nausea/Vomiting Prednisone (Prednisone) 40 mg PO QAM-WM [facility] Last Admin: 08/21/18 08:33 Dose: 40 mg Saccharomyces Boulardii (Florastor) 250 mg PO DAILY [facility] Last Admin: 08/21/18 08:32 Dose: 250 mg Senna/Docusate Sodium (Senokot S) 2 tab PO BID PRN PRN Reason: Constipation Sodium Chloride (Flush - Normal Saline) 10 ml IVF Q12HR PRN PRN Reason: Saline Flush Sodium Chloride (Flush - Normal Saline) 10 ml IVF PRN PRN PRN Reason: Saline Flush Sodium Chloride ([place] Nasal [place] 0.65%) 0 ml EA NARE QIDPRN PRN PRN Reason: Nasal Congestion Throat Lozenges (Cepastat Lozenges) 1 dre PO Q2H PRN PRN Reason: Sore Throat Tramadol HCl (Ultram) 50 mg PO BID PRN PRN Reason: Moderate Pain (4-6) Warfarin Sodium (Coumadin) 7.5 mg PO 1700 [facility] Last Admin: 08/20/18 17:27 Dose: 7.5 mg Zolpidem Tartrate (Ambien) 5 mg PO HSPRN PRN PRN Reason: Insomnia
[2018-08-21] MEDS: Warfarin Sodium 7.5 MG TAB PO SCH (17:20)
[2018-08-22] MEDS: Furosemide 40 MG TAB PO SCH (05:42)
[2018-08-22 05:56] LABS: #Eosinphils 0.1 thou/uL (0.0-0.7); #Lymphocytes 1.2 thou/uL (1.20-3.40); #Monocytes 0.9 thou/uL (0.11-0.59); #Neutrophils 9.6 thou/uL (1.40-6.50); %Eosinophils 0.8 % (0.0-10.0); %Lymphocytes 9.8 % (21.0-51.0); %Neutrophils 81.4 % (42.0-75.0); Hemoglobin 15.5 g/dL (14.0-18.0); Mean Corpuscular HGB CONC 30.6 g/dL (32.0-36.0); Mean Corpuscular Volume 91.4 fL (78.0-98.0); Mean Platelet Volume 7.2 fL (7.4-10.4); Platelet Count 233 thou/uL (130-400); RBC Distribution Width 13.3 % (11.5-14.5); Red Blood Cell (RBC) Count 5.52 mill/uL (4.70-6.10); White Blood Cell (WBC) Count 11.8 thou/uL (4.8-10.8)
[2018-08-22 05:57] LABS: INR-International Normal Ratio 2.8; Prothrombin Time 29.4 SEC (12.0-14.7)
[2018-08-22 06:23] LABS: ALT (SGPT) 37 U/L (8-55); AST (SGOT) 28 U/L (5-34); Albumin 3.5 g/dL (3.4-4.8); Alkaline Phosphatase 62 U/L (40-150); Anion Gap 14 mmol/L (10-20); BUN (Urea Nitrogen) 34 mg/dL (8.4-25.7); Bilirubin, Total 0.7 mg/dL (0.2-1.2); Calc. Creatinine Clearance 151 mL/min (70-130); Calcium 9.4 mg/dL (7.8-10.44); Carbon Dioxide 27 mmol/L (23-31); Chloride 102 mmol/L (98-107); Estimated GFR-MDRD 63; Globulin 2.9 g/dL (2.4-3.5); Glucose 130 mg/dL (83-110); Potassium 4.1 mmol/L (3.5-5.1); Protein, Total 6.4 g/dL (5.8-8.1); Sodium 139 mmol/L (136-145)
[2018-08-22] MEDS: Famotidine 20 MG TAB PO SCH (07:28)
[2018-08-22] MEDS: Carvedilol 6.25 MG TAB PO SCH (07:29)
[2018-08-22] MEDS: predniSONE 20 MG TAB PO SCH (07:29)
[2018-08-22] MEDS: Aspirin 81 mg Enteric Coated Tablet PO SCH (07:29)
[2018-08-22] MEDS: Saccharomyces boulardii 250 MG CAP PO SCH (07:31)
[2018-08-22] MEDS: Colchicine 0.6 MG TAB PO SCH (07:31)
[2018-08-22 07:33] VITALS: BP 144/89; TEMP 98
[2018-08-22] MEDS: Lisinopril/Hydrochlorothiazide 20 mg/12.5 mg Tablet PO SCH (09:13)
--- NOTE | 2018-08-22 09:31 | PDOC.PN ---
- Subjective Encounter Start Date: 08/22/18 Encounter Start Time: 09:00 Patient seen and examined. No new complaints. No overnight events - Objective Resuscitation Status: Resuscitation Status FULL:Full Resuscitation MAR Reviewed: Yes Vital Signs & Weight: Vital Signs (12 hours) Temp Pulse Resp BP BP BP Pulse Ox 08/22/18 09:13 96 144/89 H 08/22/18 09:10 96 18 94 L 08/22/18 07:58 91 L 08/22/18 07:30 98 F 111 H 21 H 144/89 H 91 L 08/22/18 07:29 144/89 H 08/22/18 06:20 73 20 96 08/22/18 04:00 97.4 F L 76 20 152/94 H 96 08/22/18 02:26 54 L 16 92 L 08/22/18 00:34 98 08/22/18 00:00 97.9 F 71 20 132/80 97 08/21/18 21:50 65 20 98 Weight Weight 406 lb 14.409 oz I&O: 08/21/18 08/22/18 08/23/18 06:59 06:59 06:59 Intake Total 1660 200 Output Total 2070 950 Balance -410 -750 Result Diagrams: 08/22/18 04:37 08/22/18 04:37 Phys Exam - Physical Examination Constitutional: NAD HEENT: PERRLA, moist MMs, sclera anicteric Neck: no JVD, supple Respiratory: no wheezing, no rales, no rhonchi Cardiovascular: RRR, no significant murmur, no rub Gastrointestinal: soft, non-tender, no distention, positive bowel sounds Musculoskeletal: no edema, pulses present Neurological: non-focal, normal sensation Psychiatric: normal affect, A&O x 3 Skin: no rash, normal turgor Dx/Plan (1) Bronchitis Code(s): J40 - BRONCHITIS, NOT SPECIFIED ACUTE OR CHRONIC Status: Acute Comment: (2) Pneumonia Code(s): J18.9 - PNEUMONIA, UNSPECIFIED ORGANISM Status: Ruled-out (3) Atrial fibrillation Code(s): I48.91 - UNSPECIFIED ATRIAL FIBRILLATION Status: Chronic Qualifiers: Atrial fibrillation type: paroxysmal Qualified Code(s): I48.0 - Paroxysmal atrial fibrillation Comment: (4) COPD (chronic obstructive pulmonary disease) Status: Chronic Comment: Steroids, nebs. (5) Chronic venous stasis dermatitis Code(s): I83.10 - VARICOSE VEINS OF UNSP LOWER EXTREMITY WITH INFLAMMATION Status: Chronic (6) Coronary artery disease Code(s): I25.10 - ATHSCL HEART DISEASE OF [place] CORONARY ARTERY W/O ANG PCTRS Status: Chronic Comment: Had a line mechanic, but has moved away. He has not had a local line mechanic for a long while. (7) Gout Code(s): M10.9 - GOUT, UNSPECIFIED Status: Chronic Qualifiers: Gout site: foot Chronicity: acute Laterality: right Qualified Code(s): M10.9 - Gout, unspecified (8) Hypertension Code(s): I10 - ESSENTIAL (PRIMARY) HYPERTENSION Status: Chronic Comment: (9) Morbid obesity with BMI of 50.0-59.9, adult Code(s): E66.01 - MORBID (SEVERE) OBESITY DUE TO EXCESS CALORIES; Z68.43 - BODY MASS INDEX (BMI) 50-59.9, ADULT Status: Chronic (10) Chronic anticoagulation Code(s): Z79.01 - JAIL (CURRENT) USE OF ANTICOAGULANTS Status: Chronic (11) GUANACO on CPAP Code(s): G47.33 - OBSTRUCTIVE SLEEP APNEA (ADULT) (PEDIATRIC); Z99.89 - DEPENDENCE ON OTHER ENABLING MACHINES AND DEVICES Status: Chronic - Plan cont current plan of care, continue antibiotics, respiratory therapy * medication reviewed as below * symptomatic treatment * see my discharge summery * he will need bariatric surgery for his morbid obesity. Review of Systems - Review of Systems ENT: negative: Ear Pain, Ear Discharge, Nose Pain, Nose Discharge, Nose Congestion, Mouth Pain, Mouth Swelling, Throat Pain, Throat Swelling, Other Respiratory: negative: Cough, Dry, Shortness of Breath, Hemoptysis, SOB with Excertion, Pleuritic Pain, Sputum, Wheezing Cardiovascular: negative: chest pain, palpitations, orthopnea, paroxysmal nocturnal dyspnea, edema, light headedness, other Gastrointestinal: negative: Nausea, Vomiting, Abdominal Pain, Diarrhea, Constipation, Melena, Hematochezia, Other Genitourinary: negative: Dysuria, Frequency, Incontinence, Hematuria, Retention , Other Musculoskeletal: negative: Neck Pain, Shoulder Pain, Arm Pain, Back Pain, Hand Pain, Leg Pain, Foot Pain, Other Skin: negative: Rash, Lesions, Paco, Bruising, Other - Medications/Allergies Allergies/Adverse Reactions: Allergies Allergy/AdvReac Type Severity Reaction Status Date / Time Iodine and Iodide Containing Allergy Nausea Verified 08/17/18 21:52 Produc Penicillins Allergy Rash Verified 08/17/18 21:52 Medications: Current Medications Acetaminophen (Tylenol) 650 mg PO Q4H PRN PRN Reason: Headache/Fever/Mild Pain (1-3) Albuterol/Ipratropium (Duoneb) 3 ml NEB [id number] Last Admin: 08/22/18 06:20 Dose: 3 ml Artificial Tears (Tears Renewed 15ml Bottle) 2 drop EA EYE PRN PRN PRN Reason: Dry Eyes Aspirin (Ecotrin) 81 mg PO DAILY [facility] Last Admin: 08/22/18 07:29 Dose: 81 mg Benzonatate (Tessalon) 100 mg PO TIDPRN PRN PRN Reason: Cough Last Admin: 08/18/18 05:06 Dose: 100 mg Calcium Carbonate (Tums) 1,000 mg PO Q4H PRN PRN Reason: Heartburn or Indigestion Carvedilol (Coreg) 6.25 mg PO BID [facility] Last Admin: 08/22/18 07:29 Dose: 6.25 mg Colchicine (Colcrys) 0.6 mg PO DAILY [facility] Last Admin: 08/22/18 07:31 Dose: 0.6 mg Diphenoxylate HCl/Atropine (Lomotil) 1 tab PO QIDPRN PRN PRN Reason: Diarrhea/Loose Stools Famotidine (Pepcid) 20 mg PO BID [facility] Last Admin: 08/22/18 07:28 Dose: 20 mg Furosemide (Lasix) 40 mg PO 0600,1400 [facility] Last Admin: 08/22/18 05:42 Dose: Not Given Guaifenesin (Robitussin Sf) 200 mg PO Q4H PRN PRN Reason: Cough Lisinopril/HCTZ (Prinizide 20-12.5) 1 tab PO BID [facility] Last Admin: 08/22/18 09:13 Dose: 1 tab Hydralazine HCl (Apresoline) 10 mg SLOW IVP Q4H PRN PRN Reason: SBP > 180 and HR < 70 Levofloxacin (Levaquin) 500 mg PO 0600 [facility] Last Admin: 08/22/18 05:43 Dose: 500 mg Loperamide HCl (Imodium) 2 mg PO Q6H PRN PRN Reason: Diarrhea/Loose Stools Loratadine (Claritin) 10 mg PO DAILYPRN PRN PRN Reason: Sinus Symptoms Mineral Oil/White Petrolatum (Eucerin Cream) 0 gm TOP BIDPRN PRN PRN Reason: Dry Skin Nitroglycerin (Nitrostat) 0.4 mg SL Q5MIN PRN PRN Reason: Chest Pain Ondansetron HCl (Zofran Odt) 4 mg PO Q6H PRN PRN Reason: Nausea/Vomiting Ondansetron HCl (Zofran) 4 mg IVP Q6H PRN PRN Reason: Nausea/Vomiting Prednisone (Prednisone) 40 mg PO QA-[facility] Last Admin: 08/22/18 07:29 Dose: 40 mg Saccharomyces Boulardii (Florastor) 250 mg PO DAILY [facility] Last Admin: 08/22/18 07:31 Dose: 250 mg Senna/Docusate Sodium (Senokot S) 2 tab PO BID PRN PRN Reason: Constipation Sodium Chloride (Flush - Normal Saline) 10 ml IVF Q12HR PRN PRN Reason: Saline Flush Sodium Chloride (Flush - Normal Saline) 10 ml IVF PRN PRN PRN Reason: Saline Flush Sodium Chloride ([place] Nasal [place] 0.65%) 0 ml EA NARE QIDPRN PRN PRN Reason: Nasal Congestion Throat Lozenges (Cepastat Lozenges) 1 dre PO Q2H PRN PRN Reason: Sore Throat Tramadol HCl (Ultram) 50 mg PO BID PRN PRN Reason: Moderate Pain (4-6) Last Admin: 08/21/18 14:21 Dose: 50 mg Warfarin Sodium (Coumadin) 7.5 mg PO 1700 [facility] Last Admin: 08/21/18 17:20 Dose: 7.5 mg Zolpidem Tartrate (Ambien) 5 mg PO HSPRN PRN PRN Reason: Insomnia
--- NOTE | 2018-08-22 10:03 | DIS ---
DATE OF ADMISSION: 08/17/2018 DATE OF DISCHARGE: 08/22/2018 PRIMARY CARE PHYSICIAN: Dr. Iva Shah. DISCHARGE DISPOSITION: Home. PRIMARY DISCHARGE DIAGNOSES: 1. Acute bronchitis. 2. Acute on chronic diastolic heart failure. SECONDARY DISCHARGE DIAGNOSES: Morbid obesity with body mass index 55, obstructive sleep apnea on CP AP, hypertension, gout, coronary artery disease, chronic obstructive pulmonary disease, chronic venou s stasis dermatitis, chronic anticoagulation with warfarin, chronic atrial fibrillation. PRIMARY PROCEDURE AND OPERATION: None. RADIOLOGICAL INVESTIGATION: Chest x-ray on admission showed chronic findings. Echocardiography [facility] this admission showed EF 55%-60%. SIGNIFICANT LABORATORY DATA: WBC 11.8, hemoglobin 15.5, platelet 233. INR 2.8. Sodium 139, potassi um 4.1, BUN 34, creatinine 1.14, calcium 9.4. LFT normal. Cardiac enzymes negative. BNP 57.3. Uri nalysis unremarkable. Blood culture negative, influenza negative. DISCHARGE MEDICATIONS: Nitroglycerin 0.4 mg sublingual p.r.n. for chest pain, Tylenol PM one tablet at bedtime p.r.n., aspirin 81 mg daily, Coreg 6.25 mg p.o. b.i.d., colchicine 0.6 mg daily, Prinzide 20/12.5 one tablet p.o. b.i.d., tramadol 50 mg b.i.d. p.r.n., warfarin 7.5 mg p.o. at bedtime, Lasix 40 mg daily, Levaquin 500 mg p.o. daily, prednisone 20 mg p.o. daily for 5 days, Levaquin also for 5 days. CONTRAINDICATIONS: None. CODE STATUS: FULL CODE. INPATIENT CONSULTANTS: Dr. Cardenas was consulted while in hospital. TEST RESULTS PENDING ON DISCHARGE: None. ALLERGIES: IODINE, PENICILLIN. DISCHARGE PLAN: Post hospital, the patient is instructed to follow up with Dr. Cardenas and Dr. Iva Shah in 1 week. HOSPITAL COURSE: A 73-year-old male with above-mentioned medical problem who was admitted by Dr. Xavier Deluca on 08/17/2018. Please see his H&P for further details. The patient mainly came to emerg ency room with increasing shortness of breath and cough. The patient was found with a clinically acu te bronchitis. His BNP was normal, but he had edema in his lower extremity and we also suspected und erlying diastolic heart failure exacerbation. Echocardiography showed normal EF. The patient was tr eated with IV Lasix with significant improvement. Patient was also given empiric antibiotic therapy with aztreonam and azithromycin, which made him diarrhea and that is why we changed the antibiotic th erapy to p.o. Levaquin. The patient is on chronic anticoagulation therapy and that is why we advised him to monitor PT/INR wh ile on Levaquin therapy to prevent supratherapeutic INR. He will continue all his previous medicatio ns upon discharge. We are giving all new medication prescriptions to him. We have prescribed Levaqu in and prednisone for 5 days for his bronchitis. This patient has morbid obesity and the patient is interested in going for bariatric surgery and that is why he will need perioperative cardiac evaluation and that is why patient will need a cardiac cat heterization, but this patient is not able to get cardiac catheterization through the groin approach because of his morbid obesity and that is why he will require radial approach for cardiac catheteriza tion that can be done as an outpatient basis as per Cardiology who was following while in hospital. Now, the patient is feeling much better. His cough and respiratory symptoms significantly improved. We have prescribed all new medication to him. Dietary education, weight loss education and healthy lifestyle measure discussed with the patient. The patient has seen and examined at bedside today. Please see my progress note from today for furth er detail. Total time spent on discharge day was 31 minutes.
--- NOTE | 2018-08-25 17:50 | PQF ---
MAREN DE SOUZA, JOVITA Solis MD [id number]- [id number] CLINICAL DOCUMENTATION CLARIFICATION FORM: POST DISCHARGE Addendum to original discharge summary date: ____ Late entry note date: __ DATE: 08/25/18 ATTN: Please exercise your independent, professional judgment in responding to the clarification form. Clinical indicators are provided on the bottom of this form for your review Please check appropriate box(s): HEART FAILURE: A. TYPE: [ ] Systolic / HFrEF [ ] Diastolic / HFpEF [ ] Combined Systolic / Diastolic B. ACUITY [ ] Acute [ ] Acute on Chronic [ ] Chronic [ ] Other diagnosis [ ] Unable to determine In addition, please specify: Present on Admission (POA): [ ] Yes [ ] No [ ] Unable to determine For continuity of documentation, please document condition throughout progress notes and discharge summary. Thank You. CLINICAL INDICATORS - SIGNS / SYMPTOMS / LABS SOB Edema RISKS: Bronchitis Hypertension TREATMENTS: IV diuretics Oxygen Randolph [email or web address] [phone] [email or web address]
--- NOTE | 2018-09-03 10:44 | PQF ---
MAREN DE SOUZA, BRENDA CARDENAS MD [id number] [id number] [id number] CLINICAL DOCUMENTATION CLARIFICATION FORM: POST DISCHARGE Addendum to original discharge summary date: ____ Late entry note date: __ DATE: 09/03/18 ATTN: Please exercise your independent, professional judgment in responding to the clarification form. Clinical indicators are provided on the bottom of this form for your review Diagnosis: ___x Acute on Chronic Diastolic Heart Failure Present on Admission (POA): [x ] Yes [ ] No [ ] Unable to determine Coding guidelines require hospitals to identify whether a diagnosis was present on admission (POA) or not. To accurately assign the appropriate POA indicator, this information must be clearly documented within the medical record. CLINICAL INDICATORS - SIGNS / SYMPTOMS / LABS Documentation to support POA status Short of breath Elevated BNP RISK FACTORS: Documentation to support POA status Acute Bronchitis TREATMENT: Documentation to support POA status IV diuretic (This form is maintained as a part of the permanent medical record) Randolph [email or web address] [phone] GEORGI
--- NOTE | 2018-09-03 13:19 | EKG ---
Test Reason : DYSPNEA Blood Pressure : / mmHG Vent. Rate : 093 BPM Atrial Rate : 105 BPM P-R Int : 000 ms QRS Dur : 096 ms QT Int : 358 ms P-R-T Axes : 000 030 045 degrees QTc Int : 445 ms Normal sinus rhythm with premature ventricular or aberrantly conducted complexes Low voltage QRS Incomplete right bundle branch block Septal infarct , age undetermined Abnormal ECG Confirmed by MARYCHUY BONILLA, REBECCA ([id number]), graphics editor AARON JONES ([id number]) on 09/03/2018 1:19:17 PM Referred By: HUGH Confirmed By:REBECCA PERRIN MD
== END 2018-08-22 10:04 | disposition home or self-care (01) | DRG 202 ==
LOC: ERS 16:46 → T4-B 20:36
PROVIDERS: ADMIT Internal Medicine; ATTEND Internal Medicine
DX: J20.9 Acute bronchitis, unspecified (principal); I50.33 Acute on chronic diastolic (congestive) heart failure; Z68.43 Body mass index [BMI] 50.0-59.9, adult; E66.01 Morbid (severe) obesity due to excess calories; I11.0 Hypertensive heart disease with heart failure; I25.10 Atherosclerotic heart disease of native coronary artery without angina pectoris; Z72.0 Tobacco use; E78.5 Hyperlipidemia, unspecified; M10.9 Gout, unspecified; M17.10 Unilateral primary osteoarthritis, unspecified knee; Z79.899 Other long term (current) drug therapy; Z79.82 Long term (current) use of aspirin; Z79.01 Long term (current) use of anticoagulants; I48.2 Chronic atrial fibrillation; G47.33 Obstructive sleep apnea (adult) (pediatric); J44.9 Chronic obstructive pulmonary disease, unspecified
CPT/HCPCS: 36415; 71045; 80048; 80053; 81003; 81015; 82553; 82805; 83605; 83690; 83880; 84484; 85025; 85610; 87040; 87804; 93005; 93306; 93798; 94640; 94644; 96361; 96365; 96367; 96375; J0456; J1100; J2920; J3490; J7050; J7506; J7611; J7620; S0028

== ENCOUNTER 2019-02-08 16:17 | Emergency (ER) | payer MEDICARE ==
[2019-02-08 17:13] LABS: #Eosinphils 0.3 thou/uL (0.0-0.7); #Lymphocytes 1.4 thou/uL (1.20-3.40); #Monocytes 0.9 thou/uL (0.11-0.59); #Neutrophils 9.2 thou/uL (1.40-6.50); %Basophils 0.2 % (0.0-1.0); %Eosinophils 2.7 % (0.0-10.0); %Lymphocytes 11.8 % (21.0-51.0); %Monocytes 7.2 % (0.0-10.0); %Neutrophils 78.1 % (42.0-75.0); Hemoglobin 14.4 g/dL (14.0-18.0); Mean Corpuscular HGB CONC 33.6 g/dL (32.0-36.0); Mean Corpuscular Hemoglobin 29.9 pg (27.0-31.0); Mean Platelet Volume 6.8 fL (7.4-10.4); Platelet Count 256 thou/uL (130-400); RBC Distribution Width 13.8 % (11.5-14.5); Red Blood Cell (RBC) Count 4.82 mill/uL (4.70-6.10); White Blood Cell (WBC) Count 11.8 thou/uL (4.8-10.8)
--- NOTE | 2019-02-08 17:25 | RAD ---
Exam: Chest one view HISTORY:Cough. Fever. Comparison: 08/17/2018 FINDINGS: Cardiac silhouette:Enlarged cardiac silhouette Pulmonary vessels: Normal Costophrenic angles: Visualized costophrenic angles are clear. Atherosclerosis of the aorta LUNGS: No masses or consolidation. Pneumothorax: None Osseous abnormalities: None IMPRESSION: 1. Cardiomegaly without evidence of congestive heart failure. 2. Atherosclerosis.
[2019-02-08 17:40] LABS: ALT (SGPT) 11 U/L (8-55); AST (SGOT) 18 U/L (5-34); Albumin 3.9 g/dL (3.4-4.8); Alkaline Phosphatase 58 U/L (40-150); Anion Gap 12 mmol/L (10-20); BUN (Urea Nitrogen) 23 mg/dL (8.4-25.7); Bilirubin, Total 0.9 mg/dL (0.2-1.2); Calc. Creatinine Clearance 0 mL/min (70-130); Calcium 10.3 mg/dL (7.8-10.44); Carbon Dioxide 29 mmol/L (23-31); Chloride 97 mmol/L (98-107); Estimated GFR-MDRD 57; Globulin 3.9 g/dL (2.4-3.5); Glucose 114 mg/dL (83-110); Potassium 3.2 mmol/L (3.5-5.1); Protein, Total 7.8 g/dL (5.8-8.1); Sodium 135 mmol/L (136-145)
[2019-02-08] MEDS ORDERED: predniSONE 20 MG TAB ONE (18:03)
[2019-02-08] MEDS ORDERED: Potassium Chloride 20 MEQ TAB ONE (18:03)
== END 2019-02-08 18:17 | disposition home or self-care (01) ==
LOC: ERS 16:17
DX: J20.9 Acute bronchitis, unspecified (principal); I11.0 Hypertensive heart disease with heart failure; I50.9 Heart failure, unspecified; E78.5 Hyperlipidemia, unspecified; I48.91 Unspecified atrial fibrillation; I25.10 Atherosclerotic heart disease of native coronary artery without angina pectoris; F17.220 Nicotine dependence, chewing tobacco, uncomplicated; M10.9 Gout, unspecified; Z79.82 Long term (current) use of aspirin; Z79.01 Long term (current) use of anticoagulants; Z79.899 Other long term (current) drug therapy
CPT/HCPCS: 71045; 80053; 83880; 84484; 85025; 93005; J7512; J7620

== ENCOUNTER 2019-03-21 14:48 | Inpatient (IN) | payer MEDICARE ==
[2019-03-21 15:23] LABS: #Lymphocytes 0.6 thou/uL (1.20-3.40); #Monocytes 0.8 thou/uL (0.11-0.59); %Basophils 0.2 % (0.0-1.0); %Eosinophils 0.3 % (0.0-10.0); %Lymphocytes 7.1 % (21.0-51.0); %Monocytes 8.9 % (0.0-10.0); %Neutrophils 83.5 % (42.0-75.0); Hemoglobin 14.1 g/dL (14.0-18.0); Mean Corpuscular HGB CONC 32.5 g/dL (32.0-36.0); Mean Corpuscular Hemoglobin 28.8 pg (27.0-31.0); Mean Corpuscular Volume 88.7 fL (78.0-98.0); Mean Platelet Volume 7.1 fL (7.4-10.4); Platelet Count 208 thou/uL (130-400); RBC Distribution Width 14.2 % (11.5-14.5); White Blood Cell (WBC) Count 8.4 thou/uL (4.8-10.8)
[2019-03-21] MEDS ORDERED: Metoclopramide HCl 10 MG/2 ML VIAL ONE (15:24)
--- NOTE | 2019-03-21 15:35 | RAD ---
EXAM: Portable chest PROVIDED CLINICAL HISTORY: Dyspnea COMPARISON: 02/08/2019 FINDINGS: Cardiac silhouette appears enlarged. Vascular calcification is seen. Advanced bilateral shoulder arth ropathy. No focal consolidation, pleural fluid or pneumothorax evident. IMPRESSION: No evidence for an acute cardiopulmonary process.
[2019-03-21 15:48] LABS: ALT (SGPT) 17 U/L (8-55); AST (SGOT) 26 U/L (5-34); Albumin 3.6 g/dL (3.4-4.8); Alkaline Phosphatase 57 U/L (40-150); Anion Gap 13 mmol/L (10-20); BUN (Urea Nitrogen) 18 mg/dL (8.4-25.7); Bilirubin, Total 1.1 mg/dL (0.2-1.2); Calc. Creatinine Clearance 0 mL/min (70-130); Calcium 9.8 mg/dL (7.8-10.44); Carbon Dioxide 26 mmol/L (23-31); Chloride 97 mmol/L (98-107); Estimated GFR-MDRD 72; Glucose 114 mg/dL (83-110); Potassium 3.2 mmol/L (3.5-5.1); Protein, Total 6.6 g/dL (5.8-8.1); Sodium 133 mmol/L (136-145)
--- NOTE | 2019-03-21 16:27 | CT ---
CT Brain WO Con History: Headache Comparison: None. Findings: Mild chronic microvascular ischemic changes. No acute hemorrhage. No midline shift or mass effect. Evidence of maxillary sinus surgery. Left maxillary osteitis. Calvarium is intact. Mastoids are clear. Impression: Chronic findings. No acute intracranial abnormality.
[2019-03-21] MEDS ORDERED: Potassium Chloride 20 MEQ TAB ONE (17:08)
[2019-03-21 18:00] LABS: Bilirubin Small (Negative); Blood, Urine Negative (Negative); Clarity CLOUDY (Clear); Glucose, Urine (Dipstick) Negative (Negative); Leukocyte Trace (Negative); Nitrite Negative (Negative); Protein, Urine (Dipstick) 30 mg/dL (Neg-Trace)
[2019-03-21 18:02] LABS: Bacteria/HPF None Seen HPF (None Seen); Hyaline Casts/LPF 4-6 HYALINE CAST LPF (0-3 Hyaline); Pathc Cast-AUWi Flag 0.68 (0-2.49); Squamous Epithelial 0-3 HPF (0-3); WBC/HPF 0-3 HPF (0-3)
[2019-03-21 18:11] LABS: Crystals/HPF None Seen HPF (Negative)
[2019-03-21] MEDS ORDERED: Furosemide 40 MG/4 ML VIAL ONE (18:49)
[2019-03-21] MEDS ORDERED: cefTRIAXone\\ROCEPHIN 2 GM VIAL ONE (18:49)
[2019-03-21] MEDS ORDERED: Azithromycin 500 MG VIAL ONE (20:59)
[2019-03-21] MEDS ORDERED: Ondansetron PF 4 MG/2 ML Vial IVP PRN (22:32)
[2019-03-21] MEDS ORDERED: Ondansetron ODT 4 MG TAB SL PRN (22:32)
[2019-03-21] MEDS ORDERED: Acetaminophen 325 MG TAB PO PRN (22:32)
[2019-03-21] MEDS ORDERED: traMADol HCl 50 MG TAB PO PRN (23:51)
[2019-03-22] MEDS ORDERED: diphenhydrAMINE 25 MG CAP PO PRN (00:15)
[2019-03-22 00:19] LABS: INR-International Normal Ratio 1.7; Prothrombin Time 19.6 SEC (12.0-14.7)
--- NOTE | 2019-03-22 02:33 | HP ---
CHIEF COMPLAINT: Shortness of breath and fever. HISTORY OF PRESENT ILLNESS: The patient is a morbidly obese 73-year-old male with past medical history significant for chronic atrial fibrillation, chronic diastolic congestive heart failure, and chronic edema and venous stasis dermatitis, who presented to the hospital with complaints of a 2-3 day history of worsening shortness of breath with exertion along with fever. The patient was in his usual state of health up until that time. He denies any cough, nausea, vomiting, diarrhea, or dysuria. He states that he has not been able to get around his house as well as usual because of his shortness of breath. He denies any orthopnea. He noticed his fever started a couple of days ago, and has been around 102 at home. Because of his worsening symptoms, he did present to the ER for further workup and treatment. On arrival to the ER, workup included an EKG which shows sustained atrial fibrillation with controlled rate. No ischemic changes. The patient had no white count, but initial temperature taken in the ER was 100.9. Chest x-ray showed no acute cardiopulmonary process. Urinalysis was negative for UTI. REVIEW OF SYSTEMS: 12-point review of systems performed. The patient does endorse some mild sinus drainage. Denies cough, nausea, vomiting, diarrhea, or dysuria as mentioned above. No blood in urine or stool. The patient denies any recent sick contacts. ALLERGIES: IODINE AND IODIDE CONTAINING PRODUCTS. PENICILLIN. HOME MEDICATIONS: 1. Acetaminophen diphenhydramine one tablet p.o. at bedtime p.r.n. 2. Albuterol sulfate nebulizer 3 mL neb q.4 hours p.r.n. 3. Aspirin 81 mg daily. 4. Coreg 6.25 mg one tablet p.o. b.i.d. 5. Colchicine 0.6 mg daily. 6. Fluoxetine 20 mg p.o. daily. 7. Lasix 40 mg tablet one tablet p.o. t.i.d. 8. Lisinopril hydrochlorothiazide 20/12.5 mg tablet one tablet p.o. b.i.d. 9. Nitroglycerin 0.4 mg sublingual p.r.n. chest pain. 10. Sildenafil citrate 20 mg tablet one tablet daily. 11. Tramadol 50 mg tablet one tablet p.o. b.i.d. 12. Warfarin 7.5 mg tablet one tablet daily. PAST MEDICAL HISTORY: Atrial fibrillation, status post ablation which was apparently unsuccessful. The patient currently has chronic atrial fibrillation. Hypertension, morbid obesity, chronic diastolic heart failure, hyperlipidemia, gout. PAST SURGICAL HISTORY: EP ablation as mentioned. History of numerous abdominal surgeries including for bowel perforation, 5 procedure total. Umbilical hernia repair. SOCIAL HISTORY: The patient is a former smoker, he quit approximately 40 years ago. He denies alcohol use or drug use. He lives at home with his and children. FAMILY HISTORY: Noncontributory. PHYSICAL EXAMINATION: VITAL SIGNS: Blood pressure 119/71, pulse 79, respirations 21, O2 saturation 96 % on room air, temperature 98.9 after Tylenol. GENERAL: The patient is a morbidly obese, chronically ill appearing elderly male, in no acute distress. HEENT: Head is atraumatic, normocephalic. Mucous membranes are moist. The patient has a max complexion. NECK: No carotid bruits. No lymphadenopathy. CV: S1 and S2. No appreciable murmurs, rubs, or gallops. Irregularly irregular rhythm. LUNGS: Regular respiratory rate and pattern, overall clear to auscultation. ABDOMEN: Positive bowel sounds. Morbidly obese. No masses. EXTREMITIES: The patient has at least +2 to 3 edema and skin changes consistent with chronic venous stasis dermatitis. No overt signs of infection. He does have a few small venous ulcers that appear uninfected. LABORATORY DATA: WBC 8.4, hemoglobin 14.1, hematocrit 43.4, platelets are 208. PT 19.6, INR 1.7. Sodium 133, potassium 3.2, chloride 97, creatinine 1.02. AST, ALT, alkaline phosphatase all within normal limits. Troponin is negative. BNP is 197.7. Lactic acid and procalcitonin are negative. Urinalysis is negative for WBC, bacteria, or leukocyte esterase. ASSESSMENT: 1. Shortness of breath and acute febrile illness meeting systemic inflammatory response syndrome criteria, possibly secondary to atypical or early pneumonia. 2. Chronic atrial fibrillation, on warfarin, CHADS-VASc equals 3, subtherapeutic INR at this time. 3. Morbid obesity. 4. Chronic edema and chronic venous stasis dermatitis without overt evidence of cellulitis. 5. Obstructive sleep apnea, compliant with CPAP. 6. Mild hypokalemia, likely secondary to diuretics. 7. Hypertension. PLAN: At this time, we will continue empiric antibiotic coverage with Rocephin and Zithromax. We will replete the patient's potassium. Continue antipyretics and supportive care. We will continue the patient's home medications. We will have pharmacy dose his Coumadin. We will also consult Wound Care for further evaluation of his lower extremities and mild ulceration. I think the patient would very much benefit from physical therapy evaluation, but would like to see how the patient responds to his antibiotics and have him recover some from his acute illness. Further recommendations based on hospital course. The care of this patient has been discussed with Dr. Farah who agrees with the above. Job ID: [id number] MTDD
[2019-03-22 06:11] LABS: Anion Gap 18 mmol/L (10-20); BUN (Urea Nitrogen) 18 mg/dL (8.4-25.7); Calc. Creatinine Clearance 164 mL/min (70-130); Calcium 9.5 mg/dL (7.8-10.44); Carbon Dioxide 20 mmol/L (23-31); Chloride 98 mmol/L (98-107); Estimated GFR-MDRD 77; Glucose 102 mg/dL (83-110); Potassium 3.9 mmol/L (3.5-5.1); Sodium 132 mmol/L (136-145)
[2019-03-22 07:33] LABS: #Lymphocytes 0.7 thou/uL (1.20-3.40); #Monocytes 0.9 thou/uL (0.11-0.59); #Neutrophils 8.9 thou/uL (1.40-6.50); %Basophils 0.2 % (0.0-1.0); %Eosinophils 0.2 % (0.0-10.0); %Lymphocytes 6.8 % (21.0-51.0); %Monocytes 8.6 % (0.0-10.0); %Neutrophils 84.2 % (42.0-75.0); Mean Corpuscular HGB CONC 33.4 g/dL (32.0-36.0); Mean Corpuscular Hemoglobin 29.5 pg (27.0-31.0); Mean Corpuscular Volume 88.4 fL (78.0-98.0); Mean Platelet Volume 7.1 fL (7.4-10.4); Platelet Count 213 thou/uL (130-400); RBC Distribution Width 14.4 % (11.5-14.5); Red Blood Cell (RBC) Count 5.07 mill/uL (4.70-6.10); White Blood Cell (WBC) Count 10.6 thou/uL (4.8-10.8)
[2019-03-22 07:40] LABS: INR-International Normal Ratio 1.6; Prothrombin Time 18.7 SEC (12.0-14.7)
[2019-03-22] MEDS: Carvedilol 6.25 MG TAB PO SCH ×2 (08:52→17:24)
[2019-03-22] MEDS: Potassium Chloride 20 MEQ TAB PO SCH ×2 (08:53→17:24)
[2019-03-22] MEDS: Famotidine 20 MG TAB PO SCH ×2 (08:53→20:47)
[2019-03-22] MEDS: Lisinopril/Hydrochlorothiazide 20 mg/12.5 mg Tablet PO SCH ×2 (08:53→20:47)
[2019-03-22] MEDS: Furosemide 40 MG TAB PO SCH ×3 (08:53→17:25)
[2019-03-22] MEDS: FLUoxetine HCl 20 MG CAP PO SCH (08:53)
[2019-03-22] MEDS: Sildenafil Citrate 20 MG TAB PO SCH (08:53)
[2019-03-22] MEDS: Colchicine 0.6 MG TAB PO SCH (08:53)
[2019-03-22] MEDS: Aspirin 81 mg Enteric Coated Tablet PO SCH (08:53)
[2019-03-22] MEDS: Acetaminophen 500 MG TAB PO PRN ×2 (08:54→15:49)
--- NOTE | 2019-03-22 16:10 | PDOC.PN ---
- Subjective Encounter Start Date: 03/22/19 Encounter Start Time: 10:00 Subjective: Patient examined, denies new complaints -: States he feels better in general, reports he thinks he may have a UTI -: Does reports a fever overnight, mild SOB, urine stream is more difficult - Objective Resuscitation Status - Order Detail: 03/21/19 23:46 Resuscitation Status Routine Co-Sign Provider: Resuscitation Status: FULL: Full Resuscitation Discussed with: patient Vital Signs & Weight: Vital Signs (12 hours) Temp Pulse Resp BP BP BP Pulse Ox 03/22/19 11:15 98.6 F 85 20 123/60 96 03/22/19 08:53 88 171/78 H 03/22/19 08:52 171/78 H 03/22/19 07:50 101.3 F H 104 H 22 H 171/78 H 97 03/22/19 04:12 99.4 F 98 23 H 140/66 97 Weight Admit Weight 169.326 kg Weight 169.326 kg I&O: 03/21/19 03/22/19 03/23/19 06:59 06:59 06:59 Intake Total 250 Balance 250 Result Diagrams: 03/22/19 07:01 03/22/19 05:24 Phys Exam - Physical Examination HEENT: PERRLA, moist MMs Neck: no nodes, no JVD Respiratory: clear to auscultation bilateral Cardiovascular: RRR, no significant murmur Gastrointestinal: soft, non-tender Musculoskeletal: no edema, pulses present Neurological: non-focal, normal sensation Lymphatic: no nodes Psychiatric: normal affect, A&O x 3 Dx/Plan (1) Atrial fibrillation Code(s): I48.91 - UNSPECIFIED ATRIAL FIBRILLATION Status: Chronic Qualifiers: Atrial fibrillation type: paroxysmal Qualified Code(s): I48.0 - Paroxysmal atrial fibrillation Comment: (2) COPD (chronic obstructive pulmonary disease) Status: Chronic Comment: Steroids, nebs. (3) Chronic anticoagulation Code(s): Z79.01 - NURSING HOME (CURRENT) USE OF ANTICOAGULANTS Status: Chronic (4) Chronic venous stasis dermatitis Code(s): I83.10 - VARICOSE VEINS OF UNSP LOWER EXTREMITY WITH INFLAMMATION Status: Chronic (5) Coronary artery disease Code(s): I25.10 - ATHSCL HEART DISEASE OF [place] CORONARY ARTERY W/O ANG PCTRS Status: Chronic Comment: Had a phone banker, but has moved away. He has not had a local phone banker for a long while. (6) Hypertension Code(s): I10 - ESSENTIAL (PRIMARY) HYPERTENSION Status: Chronic Comment: (7) Morbid obesity with BMI of 50.0-59.9, adult Code(s): E66.01 - MORBID (SEVERE) OBESITY DUE TO EXCESS CALORIES; Z68.43 - BODY MASS INDEX (BMI) 50-59.9, ADULT Status: Chronic (8) GUANACO on CPAP Code(s): G47.33 - OBSTRUCTIVE SLEEP APNEA (ADULT) (PEDIATRIC); Z99.89 - DEPENDENCE ON OTHER ENABLING MACHINES AND DEVICES Status: Chronic (9) Pneumonia Code(s): J18.9 - PNEUMONIA, UNSPECIFIED ORGANISM Status: Ruled-out - Plan continue antibiotics, respiratory therapy NAAT viral panel negative, will continue ABX for now -: Febrile this morning, improved after medications -: Echo is still pending, will recheck labs in the AM * .
[2019-03-22] MEDS: Warfarin Sodium 7.5 MG TAB PO SCH (18:25)
[2019-03-22] MEDS: cefTRIAXone\\ROCEPHIN 1 GM in Sodium Chloride 0.9% 100 ML IVPB SCH (20:13)
[2019-03-22] MEDS: Acetaminophen 325 MG TAB PO PRN (20:46)
[2019-03-22] MEDS: Azithromycin 500 MG in Sodium Chloride 0.9% 250 ML 250 ML IVPB SCH (21:02)
[2019-03-23] MEDS: Albuterol Sulfate 2.5 mg/3 ml Neb NEB PRN ×2 (00:23→11:07)
[2019-03-23 06:47] LABS: INR-International Normal Ratio 1.4; Prothrombin Time 16.9 SEC (12.0-14.7)
[2019-03-23] MEDS: Acetaminophen 325 MG TAB PO PRN ×2 (07:49→16:28)
[2019-03-23] MEDS ORDERED: Ibuprofen 200 MG TAB PO PRN (08:12)
[2019-03-23] MEDS: Furosemide 40 MG TAB PO SCH ×3 (12:26→18:56)
[2019-03-23] MEDS: Aspirin 81 mg Enteric Coated Tablet PO SCH (12:26)
[2019-03-23] MEDS: FLUoxetine HCl 20 MG CAP PO SCH (12:26)
[2019-03-23] MEDS: Famotidine 20 MG TAB PO SCH ×2 (12:27→20:43)
[2019-03-23] MEDS: Carvedilol 6.25 MG TAB PO SCH ×2 (12:27→16:33)
[2019-03-23] MEDS: Lisinopril/Hydrochlorothiazide 20 mg/12.5 mg Tablet PO SCH ×2 (12:27→20:42)
[2019-03-23] MEDS: Potassium Chloride 20 MEQ TAB PO SCH ×2 (12:28→16:28)
[2019-03-23] MEDS: Sodium Chloride 0.9% 1,000 ML IV SCH ×2 (12:28→20:41)
[2019-03-23] MEDS: Sildenafil Citrate 20 MG TAB PO SCH (12:29)
[2019-03-23] MEDS: Colchicine 0.6 MG TAB PO SCH (12:29)
[2019-03-23 12:34] LABS: Actual Bicarbonate (HCO3a) 29.8 mEq/L (22-28); Base Excess (BEa) 5.9 mEq/L (-2.0 to +3.0); CO2 Tension 40.7 mmHg (35.0-45.0); Calcium, Ionized 1.19 mmol/L (1.12-1.30); Carboxyhemoglobin (COHb) 1.1 gm% (0.0-3.0); Hemoglobin (Hb) 14.9 g/dL (14.0-18.0); O2 Tension (PaO2) 92.9 mmHg (> 70.0); Potassium - ABG Lab 3.08 mmol/L (3.70-5.30); pH, Arterial 7.48 (7.35-7.45)
[2019-03-23 12:36] LABS: ALV-art Gradient 55.865 (0-20); Puncture Site RRA
[2019-03-23] MEDS ORDERED: Nystatin Powder 15 GM BOT TOP PRN (13:16)
[2019-03-23 13:48] LABS: ALT (SGPT) 21 U/L (8-55); AST (SGOT) 31 U/L (5-34); Albumin 3.6 g/dL (3.4-4.8); Alkaline Phosphatase 59 U/L (40-150); Anion Gap 14 mmol/L (10-20); BUN (Urea Nitrogen) 22 mg/dL (8.4-25.7); Bilirubin, Total 1.3 mg/dL (0.2-1.2); Calc. Creatinine Clearance 126 mL/min (70-130); Calcium 9.7 mg/dL (7.8-10.44); Carbon Dioxide 28 mmol/L (23-31); Chloride 97 mmol/L (98-107); Estimated GFR-MDRD 57; Globulin 3.3 g/dL (2.4-3.5); Glucose 143 mg/dL (83-110); Potassium 3.3 mmol/L (3.5-5.1); Protein, Total 6.9 g/dL (5.8-8.1); Sodium 136 mmol/L (136-145)
[2019-03-23 13:55] LABS: Hemoglobin 15.1 g/dL (14.0-18.0); Mean Corpuscular HGB CONC 32.8 g/dL (32.0-36.0); Mean Corpuscular Hemoglobin 29.2 pg (27.0-31.0); Mean Platelet Volume 7.4 fL (7.4-10.4); Platelet Count 202 thou/uL (130-400); RBC Distribution Width 14.5 % (11.5-14.5); Red Blood Cell (RBC) Count 5.18 mill/uL (4.70-6.10); White Blood Cell (WBC) Count 14.4 thou/uL (4.8-10.8)
[2019-03-23 13:56] LABS: Band 21 % (5-11); Lymphocytes 9 % (21-51); MDiff Complete? YES; Monocytes 4 % (0-10); Neutrophil 66 % (42-75); Platelet Morphology Comment Appears Adequate
--- NOTE | 2019-03-23 14:21 | PDOC.PN ---
- Subjective Encounter Start Date: 03/23/19 Encounter Start Time: 14:19 Patient lying in bed, he appeared lethargic with an increase work in breathing this morning. He denied chest pain, shortness of breath or abdominal pain. He remains on IV abx and febrile. CBC, CMP, ABG ordered and consult to Dr Chapin pending. - Objective Resuscitation Status - Order Detail: 03/21/19 23:46 Resuscitation Status Routine Co-Sign Provider: Resuscitation Status: FULL: Full Resuscitation Discussed with: patient MAR Reviewed: Yes Vital Signs & Weight: Vital Signs (12 hours) Temp Pulse Resp BP BP Pulse Ox 03/23/19 12:27 82 164/91 H 03/23/19 11:15 100.0 F H 88 22 H 108/71 95 03/23/19 11:04 100 F H 82 36 H 96 03/23/19 07:42 102.9 F H 98 24 H 134/65 92 L 03/23/19 05:03 99.1 F 111 H 24 H 142/84 H 95 Weight Admit Weight 373 lb 4.8 oz Weight 373 lb 4.8 oz I&O: 03/22/19 03/23/19 03/24/19 06:59 06:59 06:59 Intake Total 250 790 Output Total 100 Balance 250 790 -100 Result Diagrams: 03/23/19 13:12 03/23/19 13:12 Radiology Reviewed by me: Yes Phys Exam - Physical Examination Tachypneic and more lethargic this morning HEENT: PERRLA, oral pharynx no lesions Neck: no nodes, supple Respiratory: no wheezing, no rales, no rhonchi Cardiovascular: RRR, no significant murmur Gastrointestinal: soft, positive bowel sounds Chronic changes noted bilateral lower extremities Neurological: non-focal, moves all 4 limbs Lymphatic: no nodes Psychiatric: A&O x 3 Skin: no rash, cap refill <2 seconds Dx/Plan (1) Febrile Code(s): R50.9 - FEVER, UNSPECIFIED Status: Acute (2) Atrial fibrillation Code(s): I48.91 - UNSPECIFIED ATRIAL FIBRILLATION Status: Chronic Qualifiers: Atrial fibrillation type: paroxysmal Qualified Code(s): I48.0 - Paroxysmal atrial fibrillation Comment: (3) COPD (chronic obstructive pulmonary disease) Status: Chronic Comment: Steroids, nebs. (4) Chronic venous stasis dermatitis Code(s): I83.10 - VARICOSE VEINS OF UNSP LOWER EXTREMITY WITH INFLAMMATION Status: Chronic (5) Coronary artery disease Code(s): I25.10 - ATHSCL HEART DISEASE OF [place] CORONARY ARTERY W/O ANG PCTRS Status: Chronic (6) Hypertension Code(s): I10 - ESSENTIAL (PRIMARY) HYPERTENSION Status: Chronic Comment: - Plan cont current plan of care, continue antibiotics, PT/OT, respiratory therapy * Continue abx * ABGs and repeat labs ordered * Dr Chapin consulted for persistent fevers * Viral workup, blood cultures and urine cultures negative * Transfer to [facility] for close monitoring and transition to inpatient * Started on IV NS, will continue at 100ml/hr * Await echo results
[2019-03-23] MEDS: Warfarin Sodium 7.5 MG TAB PO SCH (16:29)
[2019-03-23] MEDS: cefTRIAXone\\ROCEPHIN 1 GM in Sodium Chloride 0.9% 100 ML IVPB SCH (20:34)
--- NOTE | 2019-03-23 21:12 | CON ---
DATE OF CONSULTATION: REASON FOR CONSULTATION: Fever. HISTORY OF PRESENT ILLNESS: A 73-year-old patient, whom I had seen in 2016 when he presented with a history of obesity, coronary artery disease, and CHF with atrial fibrillation and gout as well as right foot pain. 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 There is no evidence of an infectious process at that time. In 2018, he was admitted with acute bronchitis and acute on chronic diastolic heart failure. He was given levofloxacin among other medicines with improvement and at this time, he presents with worsening dyspnea, fever, and some wheezing. In the emergency room, he had a temperature 102. EMS reported that his urine had a stronger smell than normal. PAST MEDICAL HISTORY: He has a history of valve repair, atrial fibrillation, hypertension, coronary artery disease, CHF with diastolic dysfunction, and gout mostly involving feet. PAST SURGICAL HISTORY: Ablation for atrial fibrillation, bowel perforation, and umbilical hernia repair. SOCIAL HISTORY: Former smoker. No alcoholic beverage use. Lived in [place]. ALLERGIES: PENICILLINS AND IODINE AGENTS. CURRENT MEDICATIONS: 1. Tylenol. 2. Ventolin. 3. Ecotrin. 4. Azithromycin. 5. Ceftriaxone. 6. Colchicine. 7. Warfarin. FAMILY HISTORY: Noncontributory. PHYSICAL EXAMINATION: VITAL SIGNS: T-max 102.9, blood pressure 150/90, pulse 82, respirations 22, and O2 saturation 95%. SKIN: Shows mild erythema in the intergluteal fold. He also has evidence of lymphedema in the lower abdominal fold with area of erythema extending across the lower abdomen associated with tenderness to palpation and nodularity. The patient is voiding in the diapers. He has a peripheral IV access, appears in no distress, oriented. HEENT: Ocular movements conjugate. Mild conjunctival hyperemia. The patient has artificial dentures. Oral cavity, mild erythema. NECK: Supple. No jugular vein distention. LUNGS: Symmetric air entry. No obvious crackles or wheezing. HEART: S1 and S2. Regular rate. No S3 or S4. ABDOMEN: Soft with some tenderness in the mid abdominal area. Most of the tenderness is localized to the panniculus and at the lower abdominal fold area. EXTREMITIES: The patient has some element of stasis dermatitis and lymphedema in lower extremities, but no cellulitis. Pulses are 1+ in dorsalis pedis. No pitting edema. Lower extremities quite symmetric. NEUROLOGIC: Nonfocal including cognitive function. LABORATORY DATA: White cell count 8.4, hemoglobin 14, platelets 208, 82% neutrophils. INR 1.4. Sodium 133, now 136 and creatinine 1.25. Liver profile with bilirubin 1.3. Transaminases and alkaline phosphatase normal. Albumin 3.6. Urinalysis with 0 to 3 wbc's. Microbiology negative. Respiratory virus PCR panel and blood cultures no growth thus far. Urine culture final no growth. ASSESSMENT: Morbid obesity, fever, dyspnea, abdominal fold panniculitis, abdominal tenderness. DISCUSSION: Differential diagnosis includes thromboembolism, possibility of pulmonary embolism versus cellulitis of the abdominal panniculus versus an intraabdominal inflammatory process. He may be need an imaging study such as a CT of abdomen and we will have to check with Radiology to see what the limits are. For example, if by tomorrow, he is still having fever and abdominal tenderness, then I would proceed with a CT of abdomen and pelvis with oral and IV contrast. Check duplex ultrasound in lower extremities to rule out deep vein thrombosis. Job ID: [id number] [facility]
[2019-03-23] MEDS: Azithromycin 500 MG in Sodium Chloride 0.9% 250 ML 250 ML IVPB SCH (22:19)
[2019-03-24] MEDS: Acetaminophen 325 MG TAB PO PRN ×3 (01:28→16:55)
[2019-03-24 07:26] LABS: INR-International Normal Ratio 1.7; Prothrombin Time 19.9 SEC (12.0-14.7)
--- NOTE | 2019-03-24 08:09 | ULT ---
BILATERAL LOWER EXTREMITY VENOUS DUPLEX EXAM: Date: 03/23/19 HISTORY: Bilateral lower extremity pain, redness, and edema. FINDINGS: Real-time color Doppler of right and left lower extremity was performed from groin to calf. This incl udes evaluation of the common femoral, superficial and profunda femoral, saphenous, popliteal, and po sterior tibial veins. This shows patent deep venous systems bilaterally. There is normal compressibil ity and augmentation. There is no evidence of deep venous thrombosis. IMPRESSION: No evidence of deep venous thrombosis of either lower extremity. POS: DESMOND
[2019-03-24] MEDS: FLUoxetine HCl 20 MG CAP PO SCH (08:25)
[2019-03-24] MEDS: Famotidine 20 MG TAB PO SCH ×2 (08:25→22:33)
[2019-03-24] MEDS: Lisinopril/Hydrochlorothiazide 20 mg/12.5 mg Tablet PO SCH ×2 (08:25→22:33)
[2019-03-24] MEDS: Furosemide 40 MG TAB PO SCH ×3 (08:25→17:53)
[2019-03-24] MEDS: Colchicine 0.6 MG TAB PO SCH (08:25)
[2019-03-24] MEDS: Sildenafil Citrate 20 MG TAB PO SCH (08:25)
[2019-03-24] MEDS: Aspirin 81 mg Enteric Coated Tablet PO SCH (08:25)
[2019-03-24] MEDS: Potassium Chloride 20 MEQ TAB PO SCH ×2 (08:25→16:40)
[2019-03-24] MEDS: Carvedilol 6.25 MG TAB PO SCH ×2 (08:32→16:46)
[2019-03-24] MEDS: Sodium Chloride 0.9% 1,000 ML IV SCH ×4 (08:32→22:38)
[2019-03-24] MEDS: Warfarin Sodium 7.5 MG TAB PO SCH (16:39)
--- NOTE | 2019-03-24 17:09 | PRG ---
DATE OF SERVICE: 03/24/2019 SUBJECTIVE: Mr. Acuña is still a bit delirious. He had a hard time answering questions. He knew he was in the hospital, but had some visual hallucinations. Denied any headaches. He did have some moderate abdominal tenderness, which is diffuse. Moderate dyspnea. No back pain. No joint symptoms. OBJECTIVE: VITAL SIGNS: T-max 102.1, BP 118/56, pulse 90, respirations 25, and O2 saturation 95. HEENT: Conjunctival hyperemia. Noted bilateral symmetric air entry with faint wheezing. ABDOMEN: Mildly distended with diffuse moderate abdominal tenderness on palpation. No ascites noted. Mild inflammatory changes in the suprapubic panniculus. Does not have a Crenshaw catheter. No bladder distention. EXTREMITIES: No joint inflammatory activity. Able to move extremities, but diffusely weak. LABORATORY DATA: White cell count up to 14.4, hemoglobin 15, and platelets 202 with 21% bands. Sodium 136, creatinine 1.25 with bilirubin 1.3, albumin 3.6. One gram-positive cece and one set of blood culture is yet to be identified, susceptibility tested. ASSESSMENT AND DISCUSSION: Morbid obesity, abdominal tenderness, persistent fever with gram-positive cece bacteremia 1 out of 2 sets, either a contaminant or a true bacteremia. The abdominal tenderness will be evaluated with abdomen and pelvis CT scan. We will check his chest CT while we scan his abdomen as well. Until the gram-positive cece is identified, we will switch him to meropenem since there is a possibility of listeria monocytogenes. Discontinue azithromycin, Rocephin, and levofloxacin. In view of the conjunctival hyperemia, we will add doxycycline to regimen in view of the possibility of Rickettsia, Borrelia, and other intracellular organisms. Job ID: [id number]
[2019-03-24] MEDS: MEROPENEM 1 GM/50 ML 1 GM in Premix Bag 1 BAG IVPB SCH (18:34)
[2019-03-24] MEDS: predniSONE 50 MG TAB PO SCH (20:04)
--- NOTE | 2019-03-24 22:34 | PDOC.PN ---
- Subjective Encounter Start Date: 03/24/19 Encounter Start Time: 16:00 Subjective: f/u for acute febrile illness, ? PNA on Meropenem/Doxycycline. -: Gm + rods on 1 blood cx. - Objective Resuscitation Status - Order Detail: 03/21/19 23:46 Resuscitation Status Routine Co-Sign Provider: Resuscitation Status: FULL: Full Resuscitation Discussed with: patient MAR Reviewed: Yes Vital Signs & Weight: Vital Signs (12 hours) Temp Pulse Pulse Pulse Resp BP BP 03/24/19 20:00 98.7 F 99 26 H 03/24/19 16:46 102/75 03/24/19 15:18 100.5 F H 90 25 H 03/24/19 14:00 103 H 113 H 103/61 03/24/19 11:36 101.7 F H 94 21 H BP BP BP Pulse Ox 03/24/19 20:00 112/58 L 93 L 03/24/19 16:46 03/24/19 15:18 118/56 L 95 03/24/19 14:00 106/56 L 03/24/19 11:36 103/51 L 97 Weight Admit Weight 373 lb 4.8 oz Weight 373 lb 4.8 oz I&O: 03/23/19 03/24/19 03/25/19 06:59 06:59 06:59 Intake Total 790 1250 480 Output Total 620 Balance 790 630 480 Result Diagrams: 03/23/19 13:12 03/23/19 13:12 Additional Labs: Microbiology 03/24/19 20:00 Stool C. difficile GDH Antigen & Toxins - Final 03/22/19 12:50 Nasopharyngeal swab Respiratory Virus Panel (PCR) - Final 03/21/19 17:40 Urine voided Urine Culture - Final 03/21/19 15:49 Nasal swab Influenza Types A,B Direct EIA - Final 03/21/19 18:52 Venous blood - Right Arm Blood Culture - Preliminary Specimen has been received and culture in progress. No Growth to date. 03/21/19 15:00 Venous blood - Right Arm Blood Culture - Preliminary Gram Positive [facility] Reviewed by me: Yes (2D echo - EF 60-65%, mod MARCE) EKG Reviewed by me: Yes (Tele - A-fib) Phys Exam - Physical Examination Constitutional: NAD alert, responsive HEENT: PERRLA, sclera anicteric, oral pharynx no lesions Neck: no nodes, no JVD, supple, full ROM diminished bilaterally, scattered coarse sounds S1, S2 with distant sounds Cardiovascular: no significant murmur, no rub, gallop, irregular obese, + panniculitis Gastrointestinal: soft, non-tender, no distention, positive bowel sounds Musculoskeletal: pulses present, edema present Neurological: normal sensation, moves all 4 limbs A x O x 2 Skin: normal turgor, cap refill <2 seconds Dx/Plan (1) Bacteremia Code(s): R78.81 - BACTEREMIA Status: Acute Comment: Gm + rods on 1 of 2 blood cx, continue Meropenem until spp identified, await final blood cx results (2) Acute metabolic encephalopathy Code(s): G93.41 - METABOLIC ENCEPHALOPATHY Status: Acute Comment: Suspect secondary to #1, re-orientation techniques (3) Chronic atrial fibrillation Code(s): I48.2 - CHRONIC ATRIAL FIBRILLATION Status: Chronic Comment: Rate- controlled currently, continue Coreg (4) Chronic anticoagulation Code(s): Z79.01 - ASSISTED (CURRENT) USE OF ANTICOAGULANTS Status: Chronic Comment: Continue Coumadin, serial INR (5) Chronic venous stasis dermatitis Code(s): I83.10 - VARICOSE VEINS OF UNSP LOWER EXTREMITY WITH INFLAMMATION Status: Chronic Comment: SCD's, elevated LE's while in bed (6) Morbid obesity with BMI of 50.0-59.9, adult Code(s): E66.01 - MORBID (SEVERE) OBESITY DUE TO EXCESS CALORIES; Z68.43 - BODY MASS INDEX (BMI) 50-59.9, ADULT Status: Chronic Comment: Weight loss resources (7) GUANACO on CPAP Code(s): G47.33 - OBSTRUCTIVE SLEEP APNEA (ADULT) (PEDIATRIC); Z99.89 - DEPENDENCE ON OTHER ENABLING MACHINES AND DEVICES Status: Chronic Comment: Nocturnal CPAP - Plan continue antibiotics, PT/OT, professor of social work, respiratory therapy, out of bed/ ambulate Continue Meropenem/Doxycycline -: Resume home BP regimen -: Resume Coumadin with daily INR -: PT evaluation for functional assessment -: AM lab: BMP, CBC, PT/INR * .
[2019-03-25] MEDS: MEROPENEM 1 GM/50 ML 1 GM in Premix Bag 1 BAG IVPB SCH ×3 (02:21→17:55)
[2019-03-25] MEDS: predniSONE 50 MG TAB PO SCH ×2 (02:21→08:44)
[2019-03-25] MEDS: Albuterol Sulfate 2.5 mg/3 ml Neb NEB PRN (02:33)
[2019-03-25] MEDS ORDERED: diphenhydrAMINE 25 MG CAP PO SCH (08:00)
--- NOTE | 2019-03-25 10:29 | CT ---
CT Chest Abd Pelvis W Con HISTORY: Diffuse abdominal pain diarrhea leukocytosis. Patient has been connected able to walk. Pain. COMPARISON: None. FINDINGS: The lungs are clear of infiltrative process. There is some motion artifact present. There i s subsegmental atelectatic changes in the lung bases. There is no significant mediastinal, hilar or axillary lymphadenopathy. There are coronary artery myles cifications seen. CT of abdomen performed with contrast enhancement: The liver, spleen, pancreas and gallbladder regions appear unremarkable. Right and left adrenal glands and right and left kidneys are within normal limits of size. No obstruc tion. No significant periaortic or mesenteric adenopathy. No bowel wall findings. CT of pelvis performed with contrast enhancement: The prostate is enlarged. There is no evidence of a denopathy, mass or free fluid. Review of osseous structures show arthritic changes of the spine. No evidence for any significant bon y canal stenosis. IMPRESSION: Subsegmental atelectatic change in the lung bases. No acute findings of the abdomen.
[2019-03-25] MEDS: Lisinopril/Hydrochlorothiazide 20 mg/12.5 mg Tablet PO SCH ×2 (10:57→20:53)
[2019-03-25] MEDS: Famotidine 20 MG TAB PO SCH ×2 (10:59→20:59)
[2019-03-25] MEDS: Potassium Chloride 20 MEQ TAB PO SCH ×2 (10:59→17:54)
[2019-03-25] MEDS: FLUoxetine HCl 20 MG CAP PO SCH (10:59)
[2019-03-25] MEDS: Carvedilol 6.25 MG TAB PO SCH ×2 (10:59→17:54)
[2019-03-25] MEDS: Colchicine 0.6 MG TAB PO SCH (10:59)
[2019-03-25] MEDS: Furosemide 40 MG TAB PO SCH ×3 (10:59→18:05)
[2019-03-25] MEDS: Aspirin 81 mg Enteric Coated Tablet PO SCH (11:00)
[2019-03-25] MEDS: Sildenafil Citrate 20 MG TAB PO SCH (11:06)
[2019-03-25 13:28] LABS: INR-International Normal Ratio 2.1; Prothrombin Time 23.6 SEC (12.0-14.7)
[2019-03-25 13:37] LABS: Anion Gap 15 mmol/L (10-20); BUN (Urea Nitrogen) 37 mg/dL (8.4-25.7); Calc. Creatinine Clearance 116 mL/min (70-130); Calcium 9.2 mg/dL (7.8-10.44); Carbon Dioxide 23 mmol/L (23-31); Chloride 99 mmol/L (98-107); Estimated GFR-MDRD 51; Glucose 201 mg/dL (83-110); Potassium 3.5 mmol/L (3.5-5.1); Sodium 133 mmol/L (136-145)
[2019-03-25 14:04] LABS: Band 32 % (5-11); Hemoglobin 13.5 g/dL (14.0-18.0); Lymphocytes 2 % (21-51); MDiff Complete? YES; Mean Corpuscular HGB CONC 30.9 g/dL (32.0-36.0); Mean Corpuscular Hemoglobin 27.9 pg (27.0-31.0); Mean Corpuscular Volume 90.2 fL (78.0-98.0); Mean Platelet Volume 8.1 fL (7.4-10.4); Monocytes 3 % (0-10); Neutrophil 63 % (42-75); Platelet Count 217 thou/uL (130-400); Platelet Morphology Comment Appears Adequate; RBC Distribution Width 14.5 % (11.5-14.5); Red Blood Cell (RBC) Count 4.85 mill/uL (4.70-6.10); White Blood Cell (WBC) Count 23.5 thou/uL (4.8-10.8)
[2019-03-25] MEDS ORDERED: Loperamide HCl 2 MG CAP PO PRN (15:35)
[2019-03-25] MEDS ORDERED: Loperamide HCl 2 MG CAP PO SCH (15:45)
--- NOTE | 2019-03-25 17:32 | PDOC.PN ---
- Subjective Encounter Start Date: 03/25/19 Encounter Start Time: 17:30 Subjective: f/u for bacteremia with gm + rods on Doxycycline/Meropenem -: Feels better but still confused. - Objective Resuscitation Status - Order Detail: 03/21/19 23:46 Resuscitation Status Routine Co-Sign Provider: Resuscitation Status: FULL: Full Resuscitation Discussed with: patient MAR Reviewed: Yes Vital Signs & Weight: Vital Signs (12 hours) Temp Pulse Pulse Resp BP BP BP 03/25/19 12:00 99.3 F 85 24 H 116/55 L 03/25/19 10:59 122/53 L 03/25/19 10:57 103 H 122/53 L 03/25/19 10:44 107 H 137/87 03/25/19 08:00 96.4 F L 103 H 20 122/53 L Pulse Ox 03/25/19 12:00 03/25/19 10:59 03/25/19 10:57 03/25/19 10:44 03/25/19 08:00 96 Weight Admit Weight 373 lb 4.8 oz Weight 373 lb 4.8 oz I&O: 03/24/19 03/25/19 03/26/19 06:59 06:59 06:59 Intake Total 1250 2500 Output Total 620 Balance 630 2500 Result Diagrams: 03/25/19 13:01 03/25/19 13:01 Additional Labs: Microbiology 03/24/19 20:00 Stool C. difficile GDH Antigen & Toxins - Final 03/22/19 12:50 Nasopharyngeal swab Respiratory Virus Panel (PCR) - Final 03/21/19 17:40 Urine voided Urine Culture - Final 03/21/19 15:49 Nasal swab Influenza Types A,B Direct EIA - Final 03/21/19 18:52 Venous blood - Right Arm Blood Culture - Preliminary Specimen has been received and culture in progress. No Growth to date. 03/21/19 15:00 Venous blood - Right Arm Blood Culture - Preliminary Gram Positive [facility] Laboratory Tests 03/22/19 03/23/19 03/25/19 07:01 13:12 13:01 WBC 10.6 14.4 H Neutrophils % (Manual) 66 Band Neuts % (Manual) 21 H PT 23.6 H INR 2.1 03/25/19 13:01 WBC Neutrophils % (Manual) 63 Band Neuts % (Manual) 32 H PT INR Radiology Reviewed by me: Yes (CT chest/abd/pel - negative for acute process) EKG Reviewed by me: Yes (Tele - A-fib in 90's) Phys Exam - Physical Examination Constitutional: NAD alert, responsive HEENT: PERRLA, sclera anicteric, oral pharynx no lesions Neck: no nodes, no JVD, supple, full ROM diminished bilat, occasional exp wheeze S1, S2 Cardiovascular: no significant murmur, no rub, gallop, irregular obese Gastrointestinal: soft, non-tender, no distention, positive bowel sounds chronic venous stasis Musculoskeletal: pulses present, edema present Neurological: normal sensation, moves all 4 limbs A x O x 1 Skin: normal turgor, cap refill <2 seconds Dx/Plan (1) Bacteremia Code(s): R78.81 - BACTEREMIA Status: Acute Comment: Gm + rods on 1 of 2 blood cx, continue Meropenem until spp identified, await final blood cx results (2) Acute metabolic encephalopathy Code(s): G93.41 - METABOLIC ENCEPHALOPATHY Status: Acute Comment: Suspect secondary to #1, re-orientation techniques, persistent (3) Chronic atrial fibrillation Code(s): I48.2 - CHRONIC ATRIAL FIBRILLATION Status: Chronic Comment: Rate- controlled currently, continue Coreg (4) Chronic anticoagulation Code(s): Z79.01 - PATTERN SHOP SUPERVISOR (CURRENT) USE OF ANTICOAGULANTS Status: Chronic Comment: Continue Coumadin, serial INR (5) Chronic venous stasis dermatitis Code(s): I83.10 - VARICOSE VEINS OF UNSP LOWER EXTREMITY WITH INFLAMMATION Status: Chronic Comment: SCD's, elevated LE's while in bed (6) Morbid obesity with BMI of 50.0-59.9, adult Code(s): E66.01 - MORBID (SEVERE) OBESITY DUE TO EXCESS CALORIES; Z68.43 - BODY MASS INDEX (BMI) 50-59.9, ADULT Status: Chronic Comment: Weight loss resources (7) GUANACO on CPAP Code(s): G47.33 - OBSTRUCTIVE SLEEP APNEA (ADULT) (PEDIATRIC); Z99.89 - DEPENDENCE ON OTHER ENABLING MACHINES AND DEVICES Status: Chronic Comment: Nocturnal CPAP - Plan continue antibiotics, PT/OT, family welfare social work professor, respiratory therapy, out of bed/ ambulate Stable currently -: Continue Doxycycline/Meropenem -: Decrease IVF 50ml/h -: continue pulmonary support -: Continue Coumadin * AM lab: BMP, CBC
[2019-03-25] MEDS ORDERED: Sodium Chloride 0.9% 1,000 ML IV SCH (17:37)
[2019-03-25] MEDS: Warfarin Sodium 7.5 MG TAB PO SCH (17:54)
--- NOTE | 2019-03-25 18:12 | PRG ---
DATE OF SERVICE: 03/25/2019 SUBJECTIVE: Mr. Acuña is wide awake. Today, he is very alert, oriented. He denies any headaches. No respiratory symptoms. No abdominal pain. He is voiding in the diaper. Does not have urinary retention. Seems like his temperature is improving compared with previous trends. OBJECTIVE: VITAL SIGNS: BP 116/55, pulse 85, respirations 24, and O2 saturation 96. HEENT: Somewhat flushed skin. He has moderate conjunctival hyperemia. Pupils are equal. Oral cavity moist. LUNGS: Symmetric air entry. HEART: S1, S2. Regular rate. ABDOMEN: Soft, not distended or tender. He moves all extremities equally. LABORATORY DATA: White cell count is 23.5, hemoglobin 13.5, platelets 217 with 32% bands, 63% neutrophils. Urinalysis with [address] of chest, abdomen and pelvis subsegmental atelectasis, but no acute findings. He is currently on meropenem and doxycycline. He is continued on colchicine. He is on warfarin. Blood cultures showed gram-positive cece, yet to be identified, susceptibility tested. This is one set and could be a contaminant. For example, corynebacterium or bacillus or could be a true pathogen such as listeria, but we will wait for the final identification. C. diff was negative in stool. ASSESSMENT AND DISCUSSION: Morbid obesity, abdominal tenderness, fever, diarrhea, gram-positive cece bacteremia 1/2 sets, either contaminant or true bacteremia. CT imaging studies did not show any inflammatory process in the chest or abdomen/pelvis. Possibility of an arthropod borne bacteria such as Ehrlichia, Rickettsia, Bartonella, Borrelia is considered. Still waiting on the identification of the gram-positive cece in the blood cultures. This could represent a contaminant. The other possibility would be a noninfectious syndrome such as vasculitis or Adult Still disease, but that is less likely. We will submit assays for those intracellular bacteria and ANCA, antinuclear antibody, complement. Job ID: [id number]
[2019-03-25 18:36] LABS: Complement-C4 34.1 mg/dL (15-53)
[2019-03-25] MEDS: Sodium Chloride 0.9% 1,000 ML IV SCH (21:12)
[2019-03-25] MEDS: Acetaminophen 325 MG TAB PO PRN (23:48)
[2019-03-26] MEDS: MEROPENEM 1 GM/50 ML 1 GM in Premix Bag 1 BAG IVPB SCH ×3 (02:46→23:45)
[2019-03-26 07:47] LABS: INR-International Normal Ratio 2.3; Prothrombin Time 25.4 SEC (12.0-14.7)
[2019-03-26 07:57] LABS: Anion Gap 13 mmol/L (10-20); BUN (Urea Nitrogen) 47 mg/dL (8.4-25.7); Calc. Creatinine Clearance 91 mL/min (70-130); Calcium 9.2 mg/dL (7.8-10.44); Carbon Dioxide 27 mmol/L (23-31); Chloride 100 mmol/L (98-107); Estimated GFR-MDRD 39; Glucose 139 mg/dL (83-110); Potassium 3.3 mmol/L (3.5-5.1); Sodium 137 mmol/L (136-145)
[2019-03-26 08:24] LABS: Band 27 % (5-11); Hemoglobin 13.1 g/dL (14.0-18.0); Lymphocytes 7 % (21-51); MDiff Complete? YES; Mean Corpuscular HGB CONC 32.3 g/dL (32.0-36.0); Mean Corpuscular Hemoglobin 28.9 pg (27.0-31.0); Mean Corpuscular Volume 89.5 fL (78.0-98.0); Mean Platelet Volume 8.1 fL (7.4-10.4); Monocytes 1 % (0-10); Neutrophil 65 % (42-75); Platelet Count 280 thou/uL (130-400); Platelet Morphology Comment Appears Adequate; RBC Distribution Width 14.6 % (11.5-14.5); Red Blood Cell (RBC) Count 4.54 mill/uL (4.70-6.10); White Blood Cell (WBC) Count 25.7 thou/uL (4.8-10.8)
[2019-03-26] MEDS: Colchicine 0.6 MG TAB PO SCH (09:17)
[2019-03-26] MEDS: Furosemide 40 MG TAB PO SCH (09:17)
[2019-03-26] MEDS: Aspirin 81 mg Enteric Coated Tablet PO SCH (09:17)
[2019-03-26] MEDS: Potassium Chloride 20 MEQ TAB PO SCH ×2 (09:17→16:03)
[2019-03-26] MEDS: Sildenafil Citrate 20 MG TAB PO SCH (09:17)
[2019-03-26] MEDS: Famotidine 20 MG TAB PO SCH ×2 (09:17→20:30)
[2019-03-26] MEDS: FLUoxetine HCl 20 MG CAP PO SCH (09:17)
[2019-03-26] MEDS: Carvedilol 6.25 MG TAB PO SCH ×2 (10:12→16:03)
[2019-03-26] MEDS: Lisinopril/Hydrochlorothiazide 20 mg/12.5 mg Tablet PO SCH (10:12)
--- NOTE | 2019-03-26 10:28 | PDOC.PN ---
- Subjective Encounter Start Date: 03/26/19 Encounter Start Time: 10:20 Subjective: f/u for febrile illness of unclear source. ? bacteremia with Gm + rods -: not fully identified. Feels better overall. Still with some SOB. - Objective Resuscitation Status - Order Detail: 03/21/19 23:46 Resuscitation Status Routine Co-Sign Provider: Resuscitation Status: FULL: Full Resuscitation Discussed with: patient MAR Reviewed: Yes Vital Signs & Weight: Vital Signs (12 hours) Temp Pulse Resp BP BP Pulse Ox 03/26/19 07:40 98.9 F 88 22 H 108/70 96 03/26/19 04:00 97.9 F 80 22 H 118/55 L 96 03/25/19 23:40 101.4 F H 83 22 H 117/57 L 95 Weight Admit Weight 373 lb 4.8 oz Weight 373 lb 4.8 oz I&O: 03/25/19 03/26/19 03/27/19 06:59 06:59 06:59 Intake Total 2500 3690 Output Total 450 Balance 2500 3240 Result Diagrams: 03/26/19 06:48 03/26/19 06:48 Additional Labs: Microbiology 03/24/19 20:00 Stool C. difficile GDH Antigen & Toxins - Final 03/22/19 12:50 Nasopharyngeal swab Respiratory Virus Panel (PCR) - Final 03/21/19 17:40 Urine voided Urine Culture - Final 03/21/19 15:49 Nasal swab Influenza Types A,B Direct EIA - Final 03/21/19 18:52 Venous blood - Right Arm Blood Culture - Preliminary Specimen has been received and culture in progress. No Growth to date. 03/21/19 15:00 Venous blood - Right Arm Blood Culture - Preliminary Gram Positive [facility] Laboratory Tests 03/22/19 03/23/19 03/25/19 07:01 13:12 13:01 WBC 10.6 14.4 H Neutrophils % (Manual) 66 Band Neuts % (Manual) 21 H PT 23.6 H INR 2.1 Potassium BUN Creatinine 03/25/19 03/25/19 03/26/19 13:01 13:01 06:48 WBC 23.5 H Neutrophils % (Manual) 63 Band Neuts % (Manual) 32 H PT INR 2.3 Potassium 3.5 BUN 37 H Creatinine 1.36 H 03/26/19 06:48 WBC Neutrophils % (Manual) Band Neuts % (Manual) 27 H PT INR Potassium BUN Creatinine Radiology Reviewed by me: Yes (CT chest/abd/pel - no acute process) EKG Reviewed by me: Yes (Tele - A-fib) Phys Exam - Physical Examination Constitutional: NAD HEENT: PERRLA, sclera anicteric, oral pharynx no lesions Neck: no nodes, no JVD, supple, full ROM diminished bilat, prolonged exp phase S1, S2 Cardiovascular: no significant murmur, no rub, gallop, irregular obese Gastrointestinal: soft, non-tender, no distention, positive bowel sounds chronic venous stasis changes bilat LE's Musculoskeletal: pulses present, edema present Neurological: normal sensation, moves all 4 limbs Psychiatric: A&O x 3 Skin: normal turgor, cap refill <2 seconds Dx/Plan (1) Bacteremia Code(s): R78.81 - BACTEREMIA Status: Acute Comment: Gm + rods on 1 of 2 blood cx, continue Meropenem until spp identified, await final blood cx results , ? contaminant, repeat CXR today (2) OSCAR (acute kidney injury) Code(s): N17.9 - ACUTE KIDNEY FAILURE, UNSPECIFIED Status: Acute Comment: Hold all nephrotoxic medications and limit contrast, increase IVF's 75ml/h, serial creatinine (3) Acute metabolic encephalopathy Code(s): G93.41 - METABOLIC ENCEPHALOPATHY Status: Acute Comment: Suspect secondary to #1, re-orientation techniques, improved (4) Chronic atrial fibrillation Code(s): I48.2 - CHRONIC ATRIAL FIBRILLATION Status: Chronic Comment: Rate- controlled currently, continue Coreg (5) Chronic anticoagulation Code(s): Z79.01 - CARE HOME (CURRENT) USE OF ANTICOAGULANTS Status: Chronic Comment: Continue Coumadin, serial INR (6) Chronic venous stasis dermatitis Code(s): I83.10 - VARICOSE VEINS OF UNSP LOWER EXTREMITY WITH INFLAMMATION Status: Chronic Comment: SCD's, elevated LE's while in bed (7) Morbid obesity with BMI of 50.0-59.9, adult Code(s): E66.01 - MORBID (SEVERE) OBESITY DUE TO EXCESS CALORIES; Z68.43 - BODY MASS INDEX (BMI) 50-59.9, ADULT Status: Chronic Comment: Weight loss resources (8) GUANACO on CPAP Code(s): G47.33 - OBSTRUCTIVE SLEEP APNEA (ADULT) (PEDIATRIC); Z99.89 - DEPENDENCE ON OTHER ENABLING MACHINES AND DEVICES Status: Chronic Comment: Nocturnal CPAP - Plan continue antibiotics, PT/OT, adoption social worker, respiratory therapy Continue Doxycycline/Meropenem -: Await final blood cx results -: Increase IVF's 75ml/h -: Hold all nephrotoxic meds and limit contrast exposure -: PCXR today * AM lab: BMP, CBC, PT/INR
[2019-03-26] MEDS: Sodium Chloride 0.9% 1,000 ML IV SCH ×2 (10:46→16:02)
--- NOTE | 2019-03-26 12:13 | RAD ---
RADIOGRAPH CHEST 1 VIEW: DATE: 03/26/2019 HISTORY: 73-year-old male with fever FINDINGS: There is no airspace density, pulmonary edema, or pneumothorax. The lateral costophrenic angles are n ot effaced. IMPRESSION: No acute pulmonary findings.
[2019-03-26 15:14] LABS: Hemoglobin 13.6 g/dL (14.0-18.0); Mean Corpuscular HGB CONC 32.7 g/dL (32.0-36.0); Mean Corpuscular Hemoglobin 29.6 pg (27.0-31.0); Mean Corpuscular Volume 90.6 fL (78.0-98.0); Mean Platelet Volume 8.1 fL (7.4-10.4); Platelet Count 281 thou/uL (130-400); RBC Distribution Width 14.6 % (11.5-14.5); Red Blood Cell (RBC) Count 4.61 mill/uL (4.70-6.10); White Blood Cell (WBC) Count 21.9 thou/uL (4.8-10.8)
[2019-03-26 15:32] LABS: Ref Lab Test Ordered RICKETTSIA IGG/IGM; Reference Lab Name LABCORP
[2019-03-26 15:33] LABS: Band 4 % (5-11); Eosinophils 5 % (0-10); Lymphocytes 18 % (21-51); MDiff Complete? YES; Monocytes 9 % (0-10); Neutrophil 62 % (42-75); Ovalocytes SLIGHT = 2-5 cells (100X) (0-1/hpf); Platelet Morphology Comment Appears Adequate
[2019-03-26 15:35] LABS: Ref Lab Test Ordered Ehrlichia Ab Panel; Reference Lab Name LABCORP
[2019-03-26] MEDS: Warfarin Sodium 7.5 MG TAB PO SCH (16:03)
--- NOTE | 2019-03-26 18:08 | PRG ---
DATE OF SERVICE: 03/26/2019 SUBJECTIVE: Awake, alert, oriented. No headaches. No respiratory symptoms. No abdominal pain. No back pain. He complains of an area of tenderness in the right side of the skin. There is what appears to be an area of abrasion. OBJECTIVE: VITAL SIGNS: His temperature max is 101.4 yesterday at 11:00 p.m. and his temperatures have been normal today, pulse 95, respirations 22, and O2 saturation 96 on 3 L. GENERAL: Awake, alert. HEENT: Mild to moderate conjunctival hyperemia. Bilateral ocular movements are conjugate. LUNGS: Symmetric. Clear breath sounds. There is an area of bruising in the anterior chest skin, which is tender to palpation. ABDOMEN: Soft, not distended. S1 and S2. Diminished heart sounds without murmurs. He is able to move all extremities. No joint inflammatory activity. LABORATORY DATA: Repeat white cell count was 21.9, hemoglobin 13.6, and manual differential with 62% neutrophils and 4% bands, 18% lymphocytes. INR 2.3. Chemistry with sodium 137, creatinine 1.74. GFR is down from 77 to 39. Bilirubin is 1.3. Miscellaneous tests have been ordered, are pending. Complement was normal. C difficile negative. Repeat chest x-ray with no acute pulmonary findings. ASSESSMENT AND DISCUSSION: Obesity, abdominal tenderness, fever, diarrhea, gram-positive cece bacteremia, yet to be fully identified as contaminant or true bacteremia. Normal CT imaging studies of abdomen, pelvis, and chest, and with the possibility of an arthropod-borne bacteria such as Ehrlichia, Rickettsia, Bartonella, and Borrelia, continue doxycycline and meropenem. The other possibility would be of vasculitis or other type of autoimmune process such as adult Still disease, but that seems to be less likely. Job ID: [id number]
[2019-03-27 06:44] LABS: INR-International Normal Ratio 2.7; Prothrombin Time 28.5 SEC (12.0-14.7)
[2019-03-27] MEDS: Aspirin 81 mg Enteric Coated Tablet PO SCH (09:17)
[2019-03-27] MEDS: Carvedilol 6.25 MG TAB PO SCH ×2 (09:17→16:04)
[2019-03-27] MEDS: Potassium Chloride 20 MEQ TAB PO SCH ×2 (09:17→16:04)
[2019-03-27] MEDS: FLUoxetine HCl 20 MG CAP PO SCH (09:18)
[2019-03-27] MEDS: Sildenafil Citrate 20 MG TAB PO SCH (09:18)
[2019-03-27] MEDS: Famotidine 20 MG TAB PO SCH ×2 (09:18→21:44)
--- NOTE | 2019-03-27 09:34 | PDOC.PN ---
- Subjective Encounter Start Date: 03/27/19 Encounter Start Time: 09:32 Subjective: Morbidly obese with GUANACO on CPAP admitted with Fever + SOB -: Has been having waxing and wanning confusion. More confused today. -: Did not use CPAP last night. - Objective Resuscitation Status - Order Detail: 03/21/19 23:46 Resuscitation Status Routine Co-Sign Provider: Resuscitation Status: FULL: Full Resuscitation Discussed with: patient Vital Signs & Weight: Vital Signs (12 hours) Temp Pulse Resp BP BP Pulse Ox 03/27/19 06:55 98.6 F 78 20 119/73 98 03/27/19 04:00 98.2 F 95 18 113/57 L 92 L 03/27/19 02:00 92 L Weight Admit Weight 373 lb 4.8 oz Weight 373 lb 4.8 oz I&O: 03/26/19 03/27/19 03/28/19 06:59 06:59 06:59 Intake Total 3690 2340 Output Total 450 185 Balance 3240 2155 Result Diagrams: 03/26/19 15:00 03/26/19 06:48 Phys Exam - Physical Examination Morbidly obese and sleepy HEENT: sclera anicteric, oral pharynx no lesions Neck: supple Respiratory: no rales Fair air entry bilaterally Cardiovascular: irregular Normal heart sound 1&2 Gastrointestinal: no distention Morbidly obese Musculoskeletal: pulses present No obvious edema appreciated Sleepy but arousable. Oriented to person & time. Conversational Thinks he is in daughters place. Moves all limbs but weakly Deviation from normal: Bilateral venous stasis changes noted on both distal leg. -: Receeding abdominal wall pannus edema and erythema noted Dx/Plan (1) Hypokalemia Code(s): E87.6 - HYPOKALEMIA Status: Acute (2) Leucocytosis Code(s): D72.829 - ELEVATED WHITE BLOOD CELL COUNT, UNSPECIFIED Status: Acute (3) OSCAR (acute kidney injury) Code(s): N17.9 - ACUTE KIDNEY FAILURE, UNSPECIFIED Status: Acute Comment: ? Contrast induced nephropathy. Avoid nephrotoxic agents. Dc NSAIDS (4) Acute metabolic encephalopathy Code(s): G93.41 - METABOLIC ENCEPHALOPATHY Status: Acute Comment: Suspect secondary to #1, re-orientation techniques, improved (5) Bacteremia Code(s): R78.81 - BACTEREMIA Status: Acute Comment: Gm + rods on 1 of 2 blood cx, continue Meropenem until spp identified, await final blood cx results , ? contaminant, repeat CXR today (6) Chronic atrial fibrillation Code(s): I48.2 - CHRONIC ATRIAL FIBRILLATION Status: Chronic Comment: Rate- controlled currently, continue Coreg (7) COPD (chronic obstructive pulmonary disease) Status: Chronic Comment: Steroids, nebs. (8) Chronic anticoagulation Code(s): Z79.01 - DAILY RELEASE AND DUPE PRINTER (CURRENT) USE OF ANTICOAGULANTS Status: Chronic Comment: Continue Coumadin, serial INR (9) Chronic venous stasis dermatitis Code(s): I83.10 - VARICOSE VEINS OF UNSP LOWER EXTREMITY WITH INFLAMMATION Status: Chronic Comment: SCD's, elevated LE's while in bed (10) Coronary artery disease Code(s): I25.10 - ATHSCL HEART DISEASE OF [place] CORONARY ARTERY W/O ANG PCTRS Status: Chronic (11) Gout Code(s): M10.9 - GOUT, UNSPECIFIED Status: Chronic Qualifiers: Gout site: foot Chronicity: acute Laterality: right Qualified Code(s): M10.9 - Gout, unspecified (12) Hypertension Code(s): I10 - ESSENTIAL (PRIMARY) HYPERTENSION Status: Chronic Comment: (13) Morbid obesity with BMI of 50.0-59.9, adult Code(s): E66.01 - MORBID (SEVERE) OBESITY DUE TO EXCESS CALORIES; Z68.43 - BODY MASS INDEX (BMI) 50-59.9, ADULT Status: Chronic Comment: Weight loss resources (14) GUANACO on CPAP Code(s): G47.33 - OBSTRUCTIVE SLEEP APNEA (ADULT) (PEDIATRIC); Z99.89 - DEPENDENCE ON OTHER ENABLING MACHINES AND DEVICES Status: Chronic Comment: Nocturnal CPAP (15) Febrile illness, acute Code(s): R50.9 - FEVER, UNSPECIFIED Status: Acute (16) Panniculitis Code(s): M79.3 - PANNICULITIS, UNSPECIFIED Status: Acute - Plan Get ABG, CBC, Renal panel, UA and urine electrolytes. -: Continue IVF and antibiotics. -: Nursing staff advised on the need to put on CPAP at nights -: Awaiting Microbe ID and susceptibility. ID following. -: Close monitoring to continue as well as daily INR checks * .
[2019-03-27 09:38] LABS: Actual Bicarbonate (HCO3a) 30.8 mEq/L (22-28); CO2 Tension 55.6 mmHg (35.0-45.0); Calcium, Ionized 1.26 mmol/L (1.12-1.30); Carboxyhemoglobin (COHb) 0.7 gm% (0.0-3.0); Hemoglobin (Hb) 13.7 g/dL (14.0-18.0); O2 Tension (PaO2) 126.7 mmHg (> 70.0); Potassium - ABG Lab 3.42 mmol/L (3.70-5.30); pH, Arterial 7.36 (7.35-7.45)
[2019-03-27 09:39] LABS: Puncture Site LR
[2019-03-27 10:21] LABS: Albumin 2.6 g/dL (3.4-4.8); Anion Gap 13 mmol/L (10-20); BUN (Urea Nitrogen) 48 mg/dL (8.4-25.7); BUN/Creatinine Ratio 44.04; Calc. Creatinine Clearance 145 mL/min (70-130); Calcium 8.9 mg/dL (7.8-10.44); Carbon Dioxide 24 mmol/L (23-31); Chloride 102 mmol/L (98-107); Estimated GFR-MDRD 66; Glucose 149 mg/dL (83-110); Phosphorus 2.6 mg/dL (2.3-4.7); Potassium 3.7 mmol/L (3.5-5.1); Sodium 135 mmol/L (136-145)
[2019-03-27 10:27] LABS: Anisocytosis SLIGHT = 6-15 cells (100X) (0-5/hpf); Band 15 % (5-11); Hemoglobin 13.1 g/dL (14.0-18.0); Hypochromia SLIGHT = 6-15 cells (100X) (0-5/hpf); Lymphocytes 1 % (21-51); MDiff Complete? YES; Mean Corpuscular HGB CONC 31.8 g/dL (32.0-36.0); Mean Corpuscular Volume 91.1 fL (78.0-98.0); Mean Platelet Volume 7.3 fL (7.4-10.4); Metamyelocyte 1 % (0-0); Monocytes 2 % (0-10); Neutrophil 81 % (42-75); Platelet Count 313 thou/uL (130-400); Platelet Morphology Comment Appears Adequate; RBC Distribution Width 14.7 % (11.5-14.5); Red Blood Cell (RBC) Count 4.52 mill/uL (4.70-6.10); White Blood Cell (WBC) Count 15.3 thou/uL (4.8-10.8)
[2019-03-27] MEDS: MEROPENEM 1 GM/50 ML 1 GM in Premix Bag 1 BAG IVPB SCH (11:24)
[2019-03-27] MEDS: Sodium Chloride 0.9% 1,000 ML IV SCH (11:24)
[2019-03-27] MEDS: Warfarin Sodium 7.5 MG TAB PO SCH (16:04)
[2019-03-27 17:13] LABS: ANA Symphony (Qualitative) Negative (Negative); ANA Symphony (Quantitative) 0.2 Ratio (< 0.7 Negative); dsDNA IgG Antibody 0.7 IU/mL (<10 Negative)
[2019-03-28] MEDS: MEROPENEM 1 GM/50 ML 1 GM in Premix Bag 1 BAG IVPB SCH ×2 (01:00→12:23)
[2019-03-28] MEDS: Sodium Chloride 0.9% 1,000 ML IV SCH ×2 (04:14→12:24)
[2019-03-28 06:25] LABS: INR-International Normal Ratio 3.3; Prothrombin Time 33.3 SEC (12.0-14.7)
[2019-03-28 06:44] LABS: Albumin 2.4 g/dL (3.4-4.8); Anion Gap 13 mmol/L (10-20); BUN (Urea Nitrogen) 37 mg/dL (8.4-25.7); BUN/Creatinine Ratio 46.25; Calc. Creatinine Clearance 205 mL/min (70-130); Calcium 9.2 mg/dL (7.8-10.44); Carbon Dioxide 22 mmol/L (23-31); Chloride 106 mmol/L (98-107); Estimated GFR-MDRD Greater than 90; Glucose 126 mg/dL (83-110); Phosphorus 2.1 mg/dL (2.3-4.7); Potassium 4.2 mmol/L (3.5-5.1); Sodium 137 mmol/L (136-145)
[2019-03-28 06:48] LABS: Band 7 % (5-11); Eosinophils 1 % (0-10); Hemoglobin 12.6 g/dL (14.0-18.0); Hypochromia SLIGHT = 6-15 cells (100X) (0-5/hpf); Lymphocytes 6 % (21-51); MDiff Complete? YES; Mean Corpuscular Hemoglobin 29.3 pg (27.0-31.0); Mean Corpuscular Volume 91.4 fL (78.0-98.0); Mean Platelet Volume 7.9 fL (7.4-10.4); Monocytes 6 % (0-10); Neutrophil 80 % (42-75); Platelet Count 282 thou/uL (130-400); Platelet Morphology Comment Appears Adequate; RBC Distribution Width 14.8 % (11.5-14.5); Red Blood Cell (RBC) Count 4.32 mill/uL (4.70-6.10); White Blood Cell (WBC) Count 9.5 thou/uL (4.8-10.8)
--- NOTE | 2019-03-28 09:14 | PDOC.PN ---
- Subjective Encounter Start Date: 03/28/19 Encounter Start Time: 09:12 Subjective: More awake and conversational. Used CPAP last night - Objective Resuscitation Status - Order Detail: 03/21/19 23:46 Resuscitation Status Routine Co-Sign Provider: Resuscitation Status: FULL: Full Resuscitation Discussed with: patient Vital Signs & Weight: Vital Signs (12 hours) Temp Pulse Resp BP Pulse Ox 03/28/19 08:10 98.2 F 94 18 131/63 99 03/28/19 04:00 97.3 F L 64 21 H 124/70 99 03/27/19 23:39 97.7 F 75 20 108/55 L 95 03/27/19 22:32 92 18 92 L Weight Admit Weight 373 lb 4.8 oz Weight 388 lb I&O: 03/27/19 03/28/19 03/29/19 06:59 06:59 06:59 Intake Total 2340 1979 Output Total 185 Balance 2155 1979 Result Diagrams: 03/28/19 05:52 03/28/19 05:52 Phys Exam - Physical Examination Constitutional: NAD morbidly obese HEENT: moist MMs Neck: supple Respiratory: no rales, no rhonchi fair air entry bilaterally Cardiovascular: RRR Gastrointestinal: soft, non-tender, no distention, positive bowel sounds morbidly obese with minimal pannus edema and erythema Musculoskeletal: pulses present No obvious edema. chronic venous stasis changes noted Neurological: moves all 4 limbs awake and conversatioanal Oriented to person and time. Still thinks he is duaghters place. Dx/Plan (1) Hypokalemia Code(s): E87.6 - HYPOKALEMIA Status: Acute Comment: Repleted. (2) Leucocytosis Code(s): D72.829 - ELEVATED WHITE BLOOD CELL COUNT, UNSPECIFIED Status: Acute Comment: Resolved. (3) OSCAR (acute kidney injury) Code(s): N17.9 - ACUTE KIDNEY FAILURE, UNSPECIFIED Status: Acute Comment: Most likely hemodynamic mediated from volume depletion and NSAIDS. Resolved. (4) Acute metabolic encephalopathy Code(s): G93.41 - METABOLIC ENCEPHALOPATHY Status: Acute Comment: Sepsis and hypercarbia. Improving. (5) Bacteremia Code(s): R78.81 - BACTEREMIA Status: Acute Comment: Gm + rods on 1 of 2 blood cx, continue Meropenem until spp identified, await final blood cx results , ? contaminant, repeat CXR today (6) Chronic atrial fibrillation Code(s): I48.2 - CHRONIC ATRIAL FIBRILLATION Status: Chronic Comment: Rate- controlled currently, continue Coreg (7) COPD (chronic obstructive pulmonary disease) Status: Chronic Comment: Steroids, nebs. (8) Chronic anticoagulation Code(s): Z79.01 - ALF (CURRENT) USE OF ANTICOAGULANTS Status: Chronic Comment: Continue Coumadin, serial INR (9) Chronic venous stasis dermatitis Code(s): I83.10 - VARICOSE VEINS OF UNSP LOWER EXTREMITY WITH INFLAMMATION Status: Chronic Comment: SCD's, elevated LE's while in bed (10) Coronary artery disease Code(s): I25.10 - ATHSCL HEART DISEASE OF [place] CORONARY ARTERY W/O ANG PCTRS Status: Chronic (11) Gout Code(s): M10.9 - GOUT, UNSPECIFIED Status: Chronic Qualifiers: Gout site: foot Chronicity: acute Laterality: right Qualified Code(s): M10.9 - Gout, unspecified (12) Hypertension Code(s): I10 - ESSENTIAL (PRIMARY) HYPERTENSION Status: Chronic Comment: (13) Morbid obesity with BMI of 50.0-59.9, adult Code(s): E66.01 - MORBID (SEVERE) OBESITY DUE TO EXCESS CALORIES; Z68.43 - BODY MASS INDEX (BMI) 50-59.9, ADULT Status: Chronic Comment: Weight loss resources (14) GUANACO on CPAP Code(s): G47.33 - OBSTRUCTIVE SLEEP APNEA (ADULT) (PEDIATRIC); Z99.89 - DEPENDENCE ON OTHER ENABLING MACHINES AND DEVICES Status: Chronic Comment: Nocturnal CPAP (15) Febrile illness, acute Code(s): R50.9 - FEVER, UNSPECIFIED Status: Acute (16) Panniculitis Code(s): M79.3 - PANNICULITIS, UNSPECIFIED Status: Acute - Plan Decrease NS to KVO to avoid fluid overload. -: Comntinue to monitor electrolytes and replete as needed. -: Continue current antibiotic. -: Awaiting microb ID and susceptibility -: Increase activity. * .
[2019-03-28] MEDS: Carvedilol 6.25 MG TAB PO SCH ×2 (09:52→17:40)
[2019-03-28] MEDS: Potassium Chloride 20 MEQ TAB PO SCH ×2 (09:52→17:40)
[2019-03-28] MEDS: Lisinopril/Hydrochlorothiazide 20 mg/12.5 mg Tablet PO SCH ×2 (09:53→20:49)
[2019-03-28] MEDS: Famotidine 20 MG TAB PO SCH ×2 (09:54→20:49)
[2019-03-28] MEDS: FLUoxetine HCl 20 MG CAP PO SCH (09:54)
[2019-03-28] MEDS: Sildenafil Citrate 20 MG TAB PO SCH (09:54)
[2019-03-28] MEDS: Aspirin 81 mg Enteric Coated Tablet PO SCH (09:54)
[2019-03-28] MEDS: Furosemide 40 MG TAB PO SCH (09:54)
[2019-03-28] MEDS ORDERED: Warfarin Sodium 3 MG TAB PO SCH (17:00)
--- NOTE | 2019-03-28 21:59 | PRG ---
DATE OF SERVICE: 03/28/2019 SUBJECTIVE: The patient has a CPAP in place. He seems to be improving. No respiratory symptoms outside the difficulty with his obstructive sleep apnea. No chest pain or abdominal pain and the diarrhea has defervesced for the past few days. OBJECTIVE: VITAL SIGNS: All the vital signs are normal, O2 saturations 99%. HEENT: Ocular movements with mild conjunctival hyperemia. LUNGS: Symmetric clear breath sounds. HEART: S1, S2. Regular rate. No S3 or S4. ABDOMEN: Soft, not distended or tender. No ascites. No bladder distention. LABORATORY DATA: White cell count down to 9.5, hemoglobin 12.6, platelets 282, creatinine is down to 0.8. The serologies for the Rickettsia, Ehrlichia and Bartonella are pending. The blood culture, likely a contaminant of the sample. ASSESSMENT AND DISCUSSION: Obesity, abdominal tenderness, fever, diarrhea, gram-positive cece bacteremia, likely contaminant and sepsis syndrome, most likely secondary to an intracellular bacteria transmitted via an arthropod such as Ehrlichia, Rickettsia, Bartonella or Borrelia. LUZ ELENA meropenem. Continue doxycycline. Eventual transition to oral doxycycline for discharge planning. Job ID: [id number]
[2019-03-29 06:47] LABS: INR-International Normal Ratio 3.6; Prothrombin Time 35.6 SEC (12.0-14.7)
[2019-03-29 06:59] LABS: Anion Gap 10 mmol/L (10-20); BUN (Urea Nitrogen) 26 mg/dL (8.4-25.7); Calc. Creatinine Clearance 218 mL/min (70-130); Calcium 8.9 mg/dL (7.8-10.44); Carbon Dioxide 26 mmol/L (23-31); Chloride 107 mmol/L (98-107); Estimated GFR-MDRD Greater than 90; Glucose 121 mg/dL (83-110); Potassium 3.8 mmol/L (3.5-5.1); Sodium 139 mmol/L (136-145)
[2019-03-29] MEDS: Aspirin 81 mg Enteric Coated Tablet PO SCH (09:29)
[2019-03-29] MEDS: Lisinopril/Hydrochlorothiazide 20 mg/12.5 mg Tablet PO SCH ×2 (09:29→20:02)
[2019-03-29] MEDS: Sildenafil Citrate 20 MG TAB PO SCH (09:29)
[2019-03-29] MEDS: Potassium Chloride 20 MEQ TAB PO SCH ×2 (09:30→20:01)
[2019-03-29] MEDS: Famotidine 20 MG TAB PO SCH ×2 (09:30→20:02)
[2019-03-29] MEDS: FLUoxetine HCl 20 MG CAP PO SCH (09:30)
[2019-03-29] MEDS: Carvedilol 6.25 MG TAB PO SCH ×2 (09:30→20:01)
[2019-03-29] MEDS: Sodium Chloride 0.9% 1,000 ML IV SCH (09:32)
--- NOTE | 2019-03-29 11:38 | PDOC.PN ---
- Subjective Encounter Start Date: 03/29/19 Encounter Start Time: 11:36 Subjective: Reportedly was agitated last night and refused using CPAP. -: Still with confusion. Remained afebrile. -: family reported that he was bitten by scorpion on the day of presentation. - Objective Resuscitation Status - Order Detail: 03/21/19 23:46 Resuscitation Status Routine Co-Sign Provider: Resuscitation Status: FULL: Full Resuscitation Discussed with: patient Vital Signs & Weight: Vital Signs (12 hours) Temp Pulse Resp BP BP BP Pulse Ox 03/29/19 09:30 138/84 03/29/19 09:29 71 03/29/19 07:20 97.4 F L 71 18 138/84 94 L 03/29/19 02:52 97.4 F L 91 18 118/57 L 95 03/29/19 00:00 98 Weight Admit Weight 373 lb 4.8 oz Weight 387 lb I&O: 03/28/19 03/29/19 03/30/19 06:59 06:59 06:59 Intake Total 1979 1864 Balance 1979 1864 Result Diagrams: 03/28/19 05:52 03/29/19 06:32 Phys Exam - Physical Examination morbidly obese and confused. HEENT: PERRLA, moist MMs Neck: supple Respiratory: no rales, no rhonchi fair air entry bilaterally. No distress Cardiovascular: irregular Gastrointestinal: soft, non-tender, no distention, positive bowel sounds obese. minimal or no pannus erythema Musculoskeletal: pulses present both lower extremity are big and full but no obvious edema awake but with some confusion. obeying commands. moving limbs but weakly Dx/Plan (1) Acute metabolic encephalopathy Code(s): G93.41 - METABOLIC ENCEPHALOPATHY Status: Acute Comment: Sepsis and hypercarbia. Improving. Given persistence, Meningitis and arthropod borne encephalitis are possible. ID following. (2) Hypokalemia Code(s): E87.6 - HYPOKALEMIA Status: Acute Comment: Repleted. (3) Leucocytosis Code(s): D72.829 - ELEVATED WHITE BLOOD CELL COUNT, UNSPECIFIED Status: Acute Comment: Resolved. (4) OSCAR (acute kidney injury) Code(s): N17.9 - ACUTE KIDNEY FAILURE, UNSPECIFIED Status: Acute Comment: Most likely hemodynamic mediated from volume depletion and NSAIDS. Resolved. (5) Bacteremia Code(s): R78.81 - BACTEREMIA Status: Acute Comment: Gm + rods on 1 of 2 blood cx, continue Meropenem until spp identified, await final blood cx results , ? contaminant, repeat CXR today (6) Chronic atrial fibrillation Code(s): I48.2 - CHRONIC ATRIAL FIBRILLATION Status: Chronic Comment: Rate- controlled currently, continue Coreg (7) COPD (chronic obstructive pulmonary disease) Status: Chronic Comment: Steroids, nebs. (8) Chronic anticoagulation Code(s): Z79.01 - RETIREMENT (CURRENT) USE OF ANTICOAGULANTS Status: Chronic Comment: Continue Coumadin, serial INR (9) Chronic venous stasis dermatitis Code(s): I83.10 - VARICOSE VEINS OF UNSP LOWER EXTREMITY WITH INFLAMMATION Status: Chronic Comment: SCD's, elevated LE's while in bed (10) Coronary artery disease Code(s): I25.10 - ATHSCL HEART DISEASE OF [place] CORONARY ARTERY W/O ANG PCTRS Status: Chronic (11) Gout Code(s): M10.9 - GOUT, UNSPECIFIED Status: Chronic Qualifiers: Gout site: foot Chronicity: acute Laterality: right Qualified Code(s): M10.9 - Gout, unspecified (12) Hypertension Code(s): I10 - ESSENTIAL (PRIMARY) HYPERTENSION Status: Chronic Comment: (13) Morbid obesity with BMI of 50.0-59.9, adult Code(s): E66.01 - MORBID (SEVERE) OBESITY DUE TO EXCESS CALORIES; Z68.43 - BODY MASS INDEX (BMI) 50-59.9, ADULT Status: Chronic Comment: Weight loss resources (14) GUANACO on CPAP Code(s): G47.33 - OBSTRUCTIVE SLEEP APNEA (ADULT) (PEDIATRIC); Z99.89 - DEPENDENCE ON OTHER ENABLING MACHINES AND DEVICES Status: Chronic Comment: Nocturnal CPAP (15) Febrile illness, acute Code(s): R50.9 - FEVER, UNSPECIFIED Status: Acute (16) Panniculitis Code(s): M79.3 - PANNICULITIS, UNSPECIFIED Status: Acute (17) Arthropod-borne disease Code(s): A94 - UNSPECIFIED ARTHROPOD-BORNE VIRAL FEVER Status: Acute - Plan Continue IV doxycycline. -: Increase activity. -: Care plan discussed with relatives (sons) -: Awaiting atypical bacteria serologies. * .
[2019-03-30 06:26] LABS: INR-International Normal Ratio 3.2; Prothrombin Time 32.8 SEC (12.0-14.7)
--- NOTE | 2019-03-30 09:11 | PDOC.PN ---
- Subjective Encounter Start Date: 03/30/19 Encounter Start Time: 09:09 Patient seen and examined, no new issues. - Objective Resuscitation Status - Order Detail: 03/21/19 23:46 Resuscitation Status Routine Co-Sign Provider: Resuscitation Status: FULL: Full Resuscitation Discussed with: patient Vital Signs & Weight: Vital Signs (12 hours) Temp Pulse Resp BP Pulse Ox 03/30/19 03:22 97.6 F 72 19 119/58 L 96 03/29/19 23:15 76 16 94 L Weight Admit Weight 373 lb 4.8 oz Weight 386 lb 11.2 oz I&O: 03/29/19 03/30/19 03/31/19 06:59 06:59 06:59 Intake Total 1865 1590 Balance 1865 1590 Result Diagrams: 03/28/19 05:52 03/29/19 06:32 Phys Exam - Physical Examination Constitutional: NAD (obese) HEENT: PERRLA, moist MMs, sclera anicteric Neck: no nodes, no JVD, supple Respiratory: no wheezing, no rales, no rhonchi Cardiovascular: RRR, no significant murmur, no rub Gastrointestinal: soft, non-tender, no distention, positive bowel sounds Musculoskeletal: pulses present, edema present Dx/Plan (1) Acute metabolic encephalopathy Code(s): G93.41 - METABOLIC ENCEPHALOPATHY Status: Acute Comment: Sepsis and hypercarbia. Improving. Given persistence, Meningitis and arthropod borne encephalitis are possible. ID following. (2) Chronic atrial fibrillation Code(s): I48.2 - CHRONIC ATRIAL FIBRILLATION Status: Chronic Comment: Rate- controlled currently, continue Coreg (3) Chronic venous stasis dermatitis Code(s): I83.10 - VARICOSE VEINS OF UNSP LOWER EXTREMITY WITH INFLAMMATION Status: Chronic Comment: SCD's, elevated LE's while in bed (4) Coronary artery disease Code(s): I25.10 - ATHSCL HEART DISEASE OF [place] CORONARY ARTERY W/O ANG PCTRS Status: Chronic (5) Gout Code(s): M10.9 - GOUT, UNSPECIFIED Status: Chronic Qualifiers: Gout site: foot Chronicity: acute Laterality: right Qualified Code(s): M10.9 - Gout, unspecified (6) Hypertension Code(s): I10 - ESSENTIAL (PRIMARY) HYPERTENSION Status: Chronic Comment: (7) Morbid obesity with BMI of 50.0-59.9, adult Code(s): E66.01 - MORBID (SEVERE) OBESITY DUE TO EXCESS CALORIES; Z68.43 - BODY MASS INDEX (BMI) 50-59.9, ADULT Status: Chronic Comment: Weight loss resources - Plan * cont current therapy for now * on abx * consult CM for rehab placement * DC plans once rehab arrangements made * case and plan d/w patient at length, he understood and agreed with this plan.
[2019-03-30] MEDS: Aspirin 81 mg Enteric Coated Tablet PO SCH (09:13)
[2019-03-30] MEDS: Carvedilol 6.25 MG TAB PO SCH ×2 (09:13→16:47)
[2019-03-30] MEDS: Famotidine 20 MG TAB PO SCH ×2 (09:13→19:37)
[2019-03-30] MEDS: Potassium Chloride 20 MEQ TAB PO SCH ×2 (09:13→16:47)
[2019-03-30] MEDS: FLUoxetine HCl 20 MG CAP PO SCH (09:14)
[2019-03-30] MEDS: Lisinopril/Hydrochlorothiazide 20 mg/12.5 mg Tablet PO SCH ×2 (09:14→19:37)
[2019-03-30] MEDS: Sildenafil Citrate 20 MG TAB PO SCH (09:25)
[2019-03-30] MEDS: Sodium Chloride 0.9% 1,000 ML IV SCH (09:31)
[2019-03-30 10:29] VITALS: BMI 49.6
[2019-03-30 13:13] LABS: Bartonella henselae IgG Negative titer (Neg:<1:320); Bartonella henselae IgM Negative titer (Neg:<1:100); Bartonella quintana IgG Negative titer (Neg:<1:320); Bartonella quintana IgM Negative titer (Neg:<1:100)
[2019-03-31 06:30] LABS: INR-International Normal Ratio 2.7; Prothrombin Time 28.2 SEC (12.0-14.7)
[2019-03-31] MEDS: Potassium Chloride 20 MEQ TAB PO SCH ×2 (09:01→18:26)
[2019-03-31] MEDS: Lisinopril/Hydrochlorothiazide 20 mg/12.5 mg Tablet PO SCH (09:02)
[2019-03-31] MEDS: Carvedilol 6.25 MG TAB PO SCH ×2 (09:03→17:53)
[2019-03-31] MEDS: Sildenafil Citrate 20 MG TAB PO SCH (09:03)
[2019-03-31] MEDS: Aspirin 81 mg Enteric Coated Tablet PO SCH (09:03)
[2019-03-31] MEDS: Famotidine 20 MG TAB PO SCH (09:03)
[2019-03-31] MEDS: FLUoxetine HCl 20 MG CAP PO SCH (09:03)
[2019-03-31] MEDS: Sodium Chloride 0.9% 1,000 ML IV SCH (09:39)
--- NOTE | 2019-03-31 10:54 | PDOC.EVN ---
Event Note - Event Note Event Note: DC SUMMARY #[id number]
--- NOTE | 2019-03-31 11:18 | DIS ---
DATE OF ADMISSION: 03/21/2019 DATE OF DISCHARGE: 03/31/2019 ADMITTING DIAGNOSES: Metabolic encephalopathy, venous insufficiency, chronic atrial fibrillation, morbid obesity, fever, shortness of breath, hypertension. DISCHARGE DIAGNOSES: Fever and shortness of breath, resolved; metabolic encephalopathy, resolved; anticoagulation, stable; atrial fibrillation, stable; venous insufficiency, stable; Gram-positive bacteremia, resolving; obesity, stable; hypertension, stable. HOSPITAL COURSE: This is a 73-year-old male, morbidly obese, who was seen in the ER at [facility], who was admitted to Internal Medicine Team, was started on antibiotics. Evaluation also done by Infectious Disease Team. The patient had gram-positive bacteremia on the . Repeat blood culture showed no growth. He was kept on IV antibiotics for about 10 days and then switched over to oral doxycycline. At point in time of discharge, the patient was stable, denied any nausea, vomiting, diarrhea, constipation, chest pain, fevers, or shortness of breath. Highest white blood cell count was around 26. At point in time of discharge, white blood cell count had come down to 9.5, and the patient was afebrile with negative cultures. Metabolic panel was also stable. The patient was to be discharged to rehab for further management and care. DISPOSITION: Rehab. FOLLOWUP: Follow up with PCP within 1 week post-rehab. MEDICATIONS: See MAR. ACTIVITY: As tolerated with assistance as needed. DIET: Low-fat low-calorie high-fiber diet. CONDITION: Stable. PROGNOSIS: Guarded. DISCHARGE MEDICATIONS: New medications were started with ciprofloxacin 100 mg p.o. b.i.d. for about 10 days. Case and plan were discussed with patient at length. He understood and agreed with this plan. Job ID: [id number]
--- NOTE | 2019-03-31 14:57 | PQF ---
CLINICAL DOCUMENTATION IMPROVEMENT CLARIFICATION FORM: ICD-10 Updated PLEASE DO AN ADDENDUM TO THE PROGRESS NOTE WITH ANY DOCUMENTATION UPDATES OR ADDITIONS AND CARRY THROUGH TO DC SUMMARY. THANK YOU. DATE: 03/31/19 ATTN: DR. DIETZ Please exercise your independent, professional judgment in responding to the clarification form. Clinical indicators are provided on the bottom of this form for your review Please check appropriate box(es): [ x ] Sepsis due to: (Pna, UTI, gangrenous gall bladder, etc.) PNA___ Due to: [ ] Device (please specify) [ ] Implant [ ] Graft [ ] Infusion [ ] SIRS due to non-infectious process (please specify etiology) [ ] with organ dysfunction [ ] without organ dysfunction [ ] Severe sepsis with acute organ dysfunction of: (Examples: respiratory failure, encephalopathy, acute kidney failure, other) [ ] Septic Shock [ ] Localized infection without sepsis [ ] Other diagnosis [ ] Unable to determine In addition, please specify: Present on Admission (POA): [ x ] Yes [ ] No [ ] Unable to determine For continuity of documentation, please document condition throughout progress notes and discharge summary. Thank You. 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 All Rights Reserved DOC [email or web address] Office: [phone] [email or web address]
[2019-03-31 16:23] VITALS: BP 141/87; TEMP 97.9
[2019-03-31 18:08] LABS: Cytoplasmic (C-ANCA) <1:20 titer (Neg:<1:20); Perinuclear (P-ANCA) <1:20 titer (Neg:<1:20)
[2019-03-31] MEDS ORDERED: Doxycycline 100 MG CAP PO SCH (21:00)
== END 2019-03-31 17:50 | disposition swing bed (61) | DRG 871 ==
LOC: ERS 14:48 → 2SW 18:55 → OBSVTOIN 18:55 → T4-A 03-22 15:43 → 2NO 03-23 16:06
PROVIDERS: ADMIT Internal Medicine; ATTEND Internal Medicine
DX: A41.9 Sepsis, unspecified organism (principal); G93.41 Metabolic encephalopathy; J18.9 Pneumonia, unspecified organism; N17.9 Acute kidney failure, unspecified; A94 Unspecified arthropod-borne viral fever; I50.32 Chronic diastolic (congestive) heart failure; Z68.42 Body mass index [BMI] 45.0-49.9, adult; E66.01 Morbid (severe) obesity due to excess calories; I87.2 Venous insufficiency (chronic) (peripheral); I11.0 Hypertensive heart disease with heart failure; I48.2 Chronic atrial fibrillation; I25.10 Atherosclerotic heart disease of native coronary artery without angina pectoris; M10.9 Gout, unspecified; J44.9 Chronic obstructive pulmonary disease, unspecified; E78.5 Hyperlipidemia, unspecified; E87.6 Hypokalemia; G47.33 Obstructive sleep apnea (adult) (pediatric); M79.3 Panniculitis, unspecified; Z79.01 Long term (current) use of anticoagulants; Z88.0 Allergy status to penicillin; Z88.8 Allergy status to other drugs, medicaments and biological substances; Z90.49 Acquired absence of other specified parts of digestive tract; Z79.82 Long term (current) use of aspirin; Z87.891 Personal history of nicotine dependence
CPT/HCPCS: 36415; 70450; 71045; 71260; 74177; 80048; 80053; 80069; 81003; 81015; 82805; 83605; 83880; 84145; 84484; 85007; 85025; 85027; 85610; 86038; 86160; 86225; 86256; 86611; 87040; 87077; 87086; 87324; 87449; 87633; 87804; 93005; 93306; 93970; 94640; 94660; 96365; 96366; 96367; 96375; J0456; J0696; J1940; J1956; J2185; J2765; J3490; J7050; J7611; Q0163

== ENCOUNTER 2020-11-28 16:28 | Inpatient (IN) | payer MEDICARE ==
[2020-11-28 17:46] LABS: #Eosinphils 0.2 thou/uL (0.0-0.7); #Lymphocytes 1.2 thou/uL (1.20-3.40); #Monocytes 0.9 thou/uL (0.11-0.59); #Neutrophils 6.5 thou/uL (1.40-6.50); %Basophils 0.5 % (0.0-1.0); %Eosinophils 2.1 % (0.0-10.0); %Lymphocytes 13.4 % (21.0-51.0); %Monocytes 10.2 % (0.0-10.0); %Neutrophils 73.7 % (42.0-75.0); Hemoglobin 13.8 g/dL (14.0-18.0); Mean Corpuscular HGB CONC 31.2 g/dL (32.0-36.0); Mean Platelet Volume 6.7 fL (7.4-10.4); Platelet Count 295 thou/uL (130-400); RBC Distribution Width 14.6 % (11.5-14.5); Red Blood Cell (RBC) Count 4.76 mill/uL (4.70-6.10); White Blood Cell (WBC) Count 8.8 thou/uL (4.8-10.8)
[2020-11-28 18:10] LABS: ALT (SGPT) 14 U/L (8-55); AST (SGOT) 17 U/L (5-34); Albumin 3.6 g/dL (3.4-4.8); Alkaline Phosphatase 78 U/L (40-110); Anion Gap 16 mmol/L (10-20); BUN (Urea Nitrogen) 19 mg/dL (8.4-25.7); Bilirubin, Total 0.4 mg/dL (0.2-1.2); Calc. Creatinine Clearance 0 mL/min (70-130); Calcium 9.4 mg/dL (7.8-10.44); Carbon Dioxide 25 mmol/L (23-31); Chloride 103 mmol/L (98-107); Globulin 3.1 g/dL (2.4-3.5); Glucose 122 mg/dL (83-110); Potassium 4.5 mmol/L (3.5-5.1); Protein, Total 6.7 g/dL (5.8-8.1); Sodium 139 mmol/L (136-145)
[2020-11-28] MEDS ORDERED: Cefepime 1 GM VIAL ONE (21:46)
[2020-11-29 00:16] VITALS: BMI 48.7
[2020-11-29] MEDS: cefTRIAXone\\ROCEPHIN 1 GM in Sodium Chloride 0.9% 100 ML IVPB SCH ×2 (00:37→22:21)
[2020-11-29 04:39] LABS: SARS-CoV-2 PCR by NAA Not Detected (NotDetected)
[2020-11-29 07:09] LABS: Anion Gap 16 mmol/L (10-20); BUN (Urea Nitrogen) 18 mg/dL (8.4-25.7); Calc. Creatinine Clearance 177 mL/min (70-130); Calcium 9.2 mg/dL (7.8-10.44); Carbon Dioxide 23 mmol/L (23-31); Chloride 103 mmol/L (98-107); Glucose 110 mg/dL (83-110); Potassium 3.9 mmol/L (3.5-5.1); Sodium 138 mmol/L (136-145)
[2020-11-29 08:06] LABS: Band 13 % (5-11); Eosinophils 2 % (0-10); Giant Platelets SLIGHT; Lymphocytes 17 % (21-51); MDiff Complete? YES; Mean Corpuscular HGB CONC 31.6 g/dL (32.0-36.0); Mean Corpuscular Hemoglobin 29.3 pg (27.0-31.0); Mean Corpuscular Volume 92.7 fL (78.0-98.0); Mean Platelet Volume 8.7 fL (7.4-10.4); Monocytes 12 % (0-10); Neutrophil 55 % (42-75); Ovalocytes SLIGHT = 2-5 cells (100X) (0-1/hpf); Platelet Count 187 thou/uL (130-400); Platelet Morphology Comment Appears Adequate; Polychromasia SLIGHT = 2-3 cells (100X) (0-2/hpf); RBC Distribution Width 14.9 % (11.5-14.5); Red Blood Cell (RBC) Count 4.79 mill/uL (4.70-6.10); White Blood Cell (WBC) Count 8.4 thou/uL (4.8-10.8)
[2020-11-29] MEDS: Enoxaparin Sodium 40 MG/0.4 ML SYRINGE SC SCH (09:04)
[2020-11-29] MEDS ORDERED: Nitroglycerin 0.4 MG TAB (25 Tab Bottle) SL PRN (09:25)
[2020-11-29] MEDS: FLUoxetine HCl 20 MG CAP PO SCH ×3 (10:00→22:20)
[2020-11-29 10:12] LABS: INR-International Normal Ratio 1.9; Prothrombin Time 22.6 sec (12.0-14.7)
[2020-11-29] MEDS: Furosemide 40 MG/4 ML VIAL SLOW IVP SCH (15:27)
[2020-11-29] MEDS: Warfarin Sodium 3 MG TAB PO SCH (17:44)
[2020-11-29] MEDS: Carvedilol 6.25 MG TAB PO SCH (22:17)
[2020-11-30] MEDS: Furosemide 40 MG/4 ML VIAL SLOW IVP SCH ×2 (06:13→15:30)
[2020-11-30] MEDS: Aspirin 81 mg Enteric Coated Tablet PO SCH (08:36)
[2020-11-30] MEDS: Enoxaparin Sodium 40 MG/0.4 ML SYRINGE SC SCH (08:36)
[2020-11-30] MEDS: Carvedilol 6.25 MG TAB PO SCH ×2 (08:36→20:01)
[2020-11-30 08:53] LABS: Hemoglobin A1c 6.1 % (4.0-6.0)
[2020-11-30 10:43] LABS: Bacteria/HPF None Seen HPF (None Seen); Bilirubin Negative (Negative); Blood, Urine Negative (Negative); Clarity Clear (Clear); Glucose, Urine (Dipstick) Normal (Negative); Ketone, Urine Negative (Negative); Leukocyte Negative Leu/uL (Negative); Nitrite Negative (Negative); Protein, Urine (Dipstick) Negative (Neg-Trace); RBC/HPF 0-3 HPF (0-3); Specific Gravity, Urine 1.007 (1.002-1.036); Squamous Epithelial 0-3 HPF (0-3); Urobilinogen Normal mg/dL (Less than 2); WBC/HPF None Seen HPF (0-3)
[2020-11-30 10:48] LABS: Urine Culture Reflex No No
[2020-11-30] MEDS: Warfarin Sodium 3 MG TAB PO SCH (17:56)
[2020-11-30] MEDS ORDERED: traMADol HCl 50 MG TAB PO PRN (19:02)
[2020-11-30] MEDS: Lisinopril/Hydrochlorothiazide 20 mg/12.5 mg Tablet PO SCH (20:00)
[2020-11-30] MEDS: FLUoxetine HCl 20 MG CAP PO SCH (20:01)
[2020-11-30] MEDS ORDERED: Polyethylene Glycol 3350 17 GM Packet PO PRN (20:52)
[2020-11-30] MEDS: Acetaminophen 500 MG TAB PO PRN (21:35)
[2020-11-30] MEDS: diphenhydrAMINE 25 MG CAP PO PRN (21:35)
[2020-12-01] MEDS: Furosemide 40 MG/4 ML VIAL SLOW IVP SCH ×2 (05:39→15:23)
[2020-12-01 07:53] LABS: INR-International Normal Ratio 1.6; Prothrombin Time 19.2 sec (12.0-14.7)
[2020-12-01] MEDS: Lisinopril/Hydrochlorothiazide 20 mg/12.5 mg Tablet PO SCH ×2 (09:25→22:52)
[2020-12-01] MEDS: Aspirin 81 mg Enteric Coated Tablet PO SCH (09:25)
[2020-12-01] MEDS: Carvedilol 6.25 MG TAB PO SCH ×2 (09:26→21:00)
[2020-12-01] MEDS: Enoxaparin Sodium 40 MG/0.4 ML SYRINGE SC SCH (09:26)
[2020-12-01] MEDS: Doxycycline 100 MG CAP PO SCH ×2 (09:30→20:59)
[2020-12-01 12:23] LABS: Anion Gap 13 mmol/L (10-20); BUN (Urea Nitrogen) 23 mg/dL (8.4-25.7); Calc. Creatinine Clearance 145 mL/min (70-130); Calcium 9.4 mg/dL (7.8-10.44); Carbon Dioxide 28 mmol/L (23-31); Chloride 99 mmol/L (98-107); Glucose 101 mg/dL (83-110); Magnesium 1.8 mg/dL (1.6-2.6); Potassium 3.5 mmol/L (3.5-5.1); Sodium 136 mmol/L (136-145)
[2020-12-01] MEDS: Warfarin Sodium 3 MG TAB PO SCH (17:07)
[2020-12-01] MEDS: FLUoxetine HCl 20 MG CAP PO SCH (21:00)
[2020-12-01] MEDS: Acetaminophen 500 MG TAB PO PRN (21:06)
[2020-12-02 06:35] LABS: Hemoglobin 14.2 g/dL (14.0-18.0); Mean Corpuscular HGB CONC 31.3 g/dL (32.0-36.0); Mean Corpuscular Hemoglobin 28.7 pg (27.0-31.0); Mean Corpuscular Volume 91.7 fL (78.0-98.0); Mean Platelet Volume 6.7 fL (7.4-10.4); Platelet Count 375 thou/uL (130-400); RBC Distribution Width 14.6 % (11.5-14.5); Red Blood Cell (RBC) Count 4.93 mill/uL (4.70-6.10); White Blood Cell (WBC) Count 11.7 thou/uL (4.8-10.8)
[2020-12-02 06:42] LABS: INR-International Normal Ratio 1.6; Prothrombin Time 19.8 sec (12.0-14.7)
[2020-12-02 06:58] LABS: Anion Gap 17 mmol/L (10-20); BUN (Urea Nitrogen) 31 mg/dL (8.4-25.7); Calc. Creatinine Clearance 107 mL/min (70-130); Calcium 9.8 mg/dL (7.8-10.44); Carbon Dioxide 27 mmol/L (23-31); Chloride 96 mmol/L (98-107); Glucose 130 mg/dL (83-110); Potassium 3.9 mmol/L (3.5-5.1); Sodium 136 mmol/L (136-145)
[2020-12-02] MEDS: Aspirin 81 mg Enteric Coated Tablet PO SCH (08:14)
[2020-12-02] MEDS: Carvedilol 6.25 MG TAB PO SCH ×2 (08:16→20:09)
[2020-12-02] MEDS: Doxycycline 100 MG CAP PO SCH ×2 (08:17→20:09)
[2020-12-02] MEDS: Enoxaparin Sodium 40 MG/0.4 ML SYRINGE SC SCH (08:17)
[2020-12-02] MEDS: Lisinopril/Hydrochlorothiazide 20 mg/12.5 mg Tablet PO SCH (08:19)
[2020-12-02] MEDS: Warfarin Sodium 5 MG TAB PO SCH (16:50)
[2020-12-02] MEDS: Warfarin Sodium 2 MG TAB PO SCH (16:50)
[2020-12-02] MEDS: FLUoxetine HCl 20 MG CAP PO SCH (20:09)
[2020-12-02] MEDS: Acetaminophen 500 MG TAB PO PRN (20:09)
[2020-12-03 06:11] LABS: Hemoglobin 13.9 g/dL (14.0-18.0); Mean Corpuscular HGB CONC 32.5 g/dL (32.0-36.0); Mean Corpuscular Hemoglobin 29.6 pg (27.0-31.0); Mean Corpuscular Volume 91.1 fL (78.0-98.0); Mean Platelet Volume 6.9 fL (7.4-10.4); Platelet Count 378 thou/uL (130-400); RBC Distribution Width 14.7 % (11.5-14.5); Red Blood Cell (RBC) Count 4.69 mill/uL (4.70-6.10); White Blood Cell (WBC) Count 11.4 thou/uL (4.8-10.8)
[2020-12-03 06:17] LABS: INR-International Normal Ratio 1.7; Prothrombin Time 20.2 sec (12.0-14.7)
[2020-12-03 06:44] LABS: Anion Gap 17 mmol/L (10-20); BUN (Urea Nitrogen) 46 mg/dL (8.4-25.7); Calc. Creatinine Clearance 86 mL/min (70-130); Calcium 9.4 mg/dL (7.8-10.44); Carbon Dioxide 26 mmol/L (23-31); Chloride 98 mmol/L (98-107); Glucose 131 mg/dL (83-110); Potassium 4.4 mmol/L (3.5-5.1); Sodium 137 mmol/L (136-145)
[2020-12-03] MEDS: Doxycycline 100 MG CAP PO SCH ×2 (08:07→20:51)
[2020-12-03] MEDS: Carvedilol 6.25 MG TAB PO SCH ×2 (08:07→20:51)
[2020-12-03] MEDS: Aspirin 81 mg Enteric Coated Tablet PO SCH (08:07)
[2020-12-03] MEDS: Cefepime 1 GM in Sodium Chloride 0.9% 100 ML IVPB SCH ×2 (13:17→20:51)
[2020-12-03] MEDS: Warfarin Sodium 2 MG TAB PO SCH (16:12)
[2020-12-03] MEDS: Warfarin Sodium 5 MG TAB PO SCH (16:12)
[2020-12-03] MEDS: FLUoxetine HCl 20 MG CAP PO SCH (20:51)
[2020-12-04] MEDS: Cefepime 1 GM in Sodium Chloride 0.9% 100 ML IVPB SCH ×3 (04:19→20:14)
[2020-12-04 05:44] LABS: #Eosinphils 0.2 thou/uL (0.0-0.7); #Lymphocytes 1.5 thou/uL (1.20-3.40); #Monocytes 0.8 thou/uL (0.11-0.59); %Basophils 0.2 % (0.0-1.0); %Eosinophils 2.4 % (0.0-10.0); %Lymphocytes 15.7 % (21.0-51.0); %Monocytes 8.5 % (0.0-10.0); %Neutrophils 73.3 % (42.0-75.0); Hemoglobin 14.2 g/dL (14.0-18.0); Mean Corpuscular HGB CONC 31.9 g/dL (32.0-36.0); Mean Corpuscular Hemoglobin 29.1 pg (27.0-31.0); Mean Corpuscular Volume 91.3 fL (78.0-98.0); Platelet Count 345 thou/uL (130-400); RBC Distribution Width 14.8 % (11.5-14.5); Red Blood Cell (RBC) Count 4.89 mill/uL (4.70-6.10); White Blood Cell (WBC) Count 9.5 thou/uL (4.8-10.8)
[2020-12-04 05:56] LABS: INR-International Normal Ratio 1.8; Prothrombin Time 21.4 sec (12.0-14.7)
[2020-12-04 06:10] LABS: Anion Gap 15 mmol/L (10-20); BUN (Urea Nitrogen) 50 mg/dL (8.4-25.7); Calc. Creatinine Clearance 111 mL/min (70-130); Calcium 9.5 mg/dL (7.8-10.44); Carbon Dioxide 25 mmol/L (23-31); Chloride 100 mmol/L (98-107); Glucose 130 mg/dL (83-110); Potassium 3.9 mmol/L (3.5-5.1); Sodium 136 mmol/L (136-145)
[2020-12-04] MEDS: Doxycycline 100 MG CAP PO SCH ×2 (08:35→20:14)
[2020-12-04] MEDS: Carvedilol 6.25 MG TAB PO SCH ×2 (08:36→20:15)
[2020-12-04] MEDS: Aspirin 81 mg Enteric Coated Tablet PO SCH (08:36)
[2020-12-04] MEDS: Warfarin Sodium 2 MG TAB PO SCH (17:57)
[2020-12-04] MEDS: Warfarin Sodium 5 MG TAB PO SCH (17:58)
[2020-12-04] MEDS: FLUoxetine HCl 20 MG CAP PO SCH (20:14)
[2020-12-04] MEDS: Acetaminophen 500 MG TAB PO PRN (20:20)
[2020-12-04] MEDS: diphenhydrAMINE 25 MG CAP PO PRN (20:20)
[2020-12-05] MEDS: Cefepime 1 GM in Sodium Chloride 0.9% 100 ML IVPB SCH ×2 (03:50→12:56)
[2020-12-05] MEDS: Doxycycline 100 MG CAP PO SCH (08:04)
[2020-12-05] MEDS: Carvedilol 6.25 MG TAB PO SCH (08:04)
[2020-12-05] MEDS: Aspirin 81 mg Enteric Coated Tablet PO SCH (08:06)
[2020-12-05 10:14] LABS: #Basophils 0.1 thou/uL (0.0-0.2); #Eosinphils 0.2 thou/uL (0.0-0.7); #Lymphocytes 1.4 thou/uL (1.20-3.40); #Monocytes 0.8 thou/uL (0.11-0.59); #Neutrophils 6.3 thou/uL (1.40-6.50); %Basophils 0.6 % (0.0-1.0); %Eosinophils 1.8 % (0.0-10.0); %Lymphocytes 16.1 % (21.0-51.0); %Monocytes 9.5 % (0.0-10.0); Hemoglobin 13.4 g/dL (14.0-18.0); Mean Corpuscular HGB CONC 32.4 g/dL (32.0-36.0); Mean Corpuscular Hemoglobin 29.6 pg (27.0-31.0); Mean Corpuscular Volume 91.5 fL (78.0-98.0); Mean Platelet Volume 6.7 fL (7.4-10.4); Platelet Count 297 thou/uL (130-400); RBC Distribution Width 14.5 % (11.5-14.5); Red Blood Cell (RBC) Count 4.51 mill/uL (4.70-6.10); White Blood Cell (WBC) Count 8.8 thou/uL (4.8-10.8)
[2020-12-05 10:23] LABS: Anion Gap 13 mmol/L (10-20); BUN (Urea Nitrogen) 35 mg/dL (8.4-25.7); Calc. Creatinine Clearance 199 mL/min (70-130); Calcium 9.4 mg/dL (7.8-10.44); Carbon Dioxide 23 mmol/L (23-31); Chloride 105 mmol/L (98-107); Glucose 125 mg/dL (83-110); Sodium 137 mmol/L (136-145)
[2020-12-05 12:14] VITALS: BP 148/87; TEMP 97.6
[2020-12-05 13:15] LABS: INR-International Normal Ratio 1.8; Prothrombin Time 21.4 sec (12.0-14.7)
[2020-12-05] MEDS: Warfarin Sodium 5 MG TAB PO SCH (16:43)
[2020-12-05] MEDS: Warfarin Sodium 2 MG TAB PO SCH (16:43)
== END 2020-12-05 17:29 | disposition swing bed (61) | DRG 603 ==
LOC: ERS 16:28 → OBSVTOIN 20:59 → T4-A 20:59 → INTOOBSV 20:59
PROVIDERS: ADMIT Student in an Organized Health Care Education/Training Program; ATTEND Internal Medicine
PROC: 8E0ZXY6 Isolation (ICD-10-PCS; principal; 2020-12-01)
DX: L03.115 Cellulitis of right lower limb (principal); I48.20 Chronic atrial fibrillation, unspecified; Z68.43 Body mass index [BMI] 50.0-59.9, adult; Z20.822 Contact with and (suspected) exposure to COVID-19; I50.9 Heart failure, unspecified; I11.0 Hypertensive heart disease with heart failure; I25.10 Atherosclerotic heart disease of native coronary artery without angina pectoris; E78.5 Hyperlipidemia, unspecified; J44.9 Chronic obstructive pulmonary disease, unspecified; I87.2 Venous insufficiency (chronic) (peripheral); E66.01 Morbid (severe) obesity due to excess calories; B95.62 Methicillin resistant Staphylococcus aureus infection as the cause of diseases classified elsewhere; B96.5 Pseudomonas (aeruginosa) (mallei) (pseudomallei) as the cause of diseases classified elsewhere; F17.220 Nicotine dependence, chewing tobacco, uncomplicated; F32.9 Major depressive disorder, single episode, unspecified; R73.03 Prediabetes; Z79.01 Long term (current) use of anticoagulants; Z88.0 Allergy status to penicillin; Z91.041 Radiographic dye allergy status; Z79.899 Other long term (current) drug therapy; Z79.82 Long term (current) use of aspirin
CPT/HCPCS: 36415; 36416; 71045; 80048; 80053; 81001; 83036; 83605; 83735; 83880; 84484; 85025; 85027; 85610; 87070; 87077; 87186; 87205; 87635; 93005; 93970; 96365; 96366; 96372; 96375; 96376; G0378; J0692; J0696; J1650; J1940; J3370; J3490; J7030; Q0163; U0003; U0005

== ENCOUNTER 2021-06-03 00:44 | Inpatient (IN) | payer MEDICARE, MEDICAID ==
[2021-06-03 01:56] LABS: Actual Bicarbonate (HCO3a) 29.1 mEq/L (22-28); Analyzer IN Cardio ER; Base Excess (BEa) 2.4 mEq/L (-2.0 to +3.0); CO2 Tension 53.8 mmHg (35.0-45.0); Carboxyhemoglobin (COHb) 0.2 gm% (0.0-3.0); Hemoglobin (Hb) 13.9 g/dL (14.0-18.0); O2 Tension (PaO2), arterial 80.7 mmHg (> 70.0); Potassium - ABG Lab 3.18 mmol/L (3.70-5.30); pH, Arterial 7.35 (7.35-7.45)
[2021-06-03 01:59] LABS: Puncture Site RRA
[2021-06-03] MEDS ORDERED: Acetaminophen 650 MG Suppository PR PRN (04:01)
[2021-06-03] MEDS ORDERED: Ondansetron ODT 4 MG TAB PO PRN (04:01)
[2021-06-03] MEDS ORDERED: Ondansetron PF 4 MG/2 ML Vial IVP PRN (04:01)
[2021-06-03 04:11] LABS: Actual Bicarbonate (HCO3a) 30.5 mEq/L (22-28); Analyzer IN Cardio ER; Base Excess (BEa) 3.1 mEq/L (-2.0 to +3.0); CO2 Tension 58.5 mmHg (35.0-45.0); Calcium, Ionized (arterial) 1.22 mmol/L (1.12-1.30); Carboxyhemoglobin (COHb) 0.3 gm% (0.0-3.0); Potassium - ABG Lab 3.12 mmol/L (3.70-5.30); pH, Arterial 7.34 (7.35-7.45)
[2021-06-03 04:14] LABS: ALV-art Gradient 52.515 mmHg (0-20); Puncture Site LRA
[2021-06-03 06:33] LABS: #Lymphocytes 0.7 thou/uL (1.20-3.40); #Monocytes 0.2 thou/uL (0.11-0.59); #Neutrophils 8.2 thou/uL (1.40-6.50); %Basophils 0.1 % (0.0-1.0); %Eosinophils 0.4 % (0.0-10.0); %Lymphocytes 7.6 % (21.0-51.0); %Monocytes 2.5 % (0.0-10.0); %Neutrophils 89.4 % (42.0-75.0); Hemoglobin 13.6 g/dL (14.0-18.0); Mean Corpuscular HGB CONC 31.7 g/dL (32.0-36.0); Mean Corpuscular Hemoglobin 27.7 pg (27.0-31.0); Mean Corpuscular Volume 87.4 fL (78.0-98.0); Mean Platelet Volume 6.8 fL (7.4-10.4); Platelet Count 273 thou/uL (130-400); Red Blood Cell (RBC) Count 4.88 mill/uL (4.70-6.10); White Blood Cell (WBC) Count 9.1 thou/uL (4.8-10.8)
[2021-06-03 06:49] LABS: Anion Gap 13 mmol/L (10-20); BUN (Urea Nitrogen) 14 mg/dL (8.4-25.7); CRP (Inflammatory) 16.07 mg/dL (= or < 0.5); Calc. Creatinine Clearance 0 mL/min (70-130); Calcium 9.5 mg/dL (7.8-10.44); Carbon Dioxide 29 mmol/L (23-31); Chloride 100 mmol/L (98-107); Glucose 174 mg/dL (83-110); Potassium 3.2 mmol/L (3.5-5.1); Sodium 139 mmol/L (136-145)
[2021-06-03 06:54] LABS: Troponin I Less than 0.010 ng/mL (< 0.028)
[2021-06-03] MEDS ORDERED: Enoxaparin Sodium 40 MG/0.4 ML SYRINGE SC SCH (09:00)
[2021-06-03] MEDS ORDERED: Enoxaparin Sodium 40 MG/0.4 ML SYRINGE ONE (09:11)
[2021-06-03 11:36] LABS: Amphetamine Not Detected (NotDetected); Barbiturates Screen Not Detected (NotDetected); Benzodiazepine Screen Not Detected (NotDetected); Cocaine Metabolite Screen Not Detected (NotDetected); Methadone Not Detected (NotDetected); Methamphetamine Not Detected (NotDetected); Opiate Screen Not Detected (NotDetected); Oxycodone Screen Not Detected (NotDetected); Phencyclidine (PCP) Not Detected (NotDetected); THC/Cannabinoid Screen Not Detected (NotDetected); Tricyclic Screen Not Detected (NotDetected)
[2021-06-03 12:39] LABS: Actual Bicarbonate (HCO3a) 28.1 mEq/L (22-28); Analyzer IN Cardio ER; Base Excess (BEa) 3.7 mEq/L (-2.0 to +3.0); Calcium, Ionized (arterial) 1.21 mmol/L (1.12-1.30); Carboxyhemoglobin (COHb) 0.3 gm% (0.0-3.0); Hemoglobin (Hb) 14.5 g/dL (14.0-18.0); O2 Tension (PaO2), arterial 79.3 mmHg (> 70.0); Potassium - ABG Lab 2.82 mmol/L (3.70-5.30); pH, Arterial 7.44 (7.35-7.45)
[2021-06-03] MEDS ORDERED: Potassium Chloride 20 MEQ TAB ONE (12:40)
[2021-06-03] MEDS ORDERED: Magnesium 2 GM/50 ML BAG (IN WATER) ONE (12:40)
[2021-06-03 12:42] LABS: Puncture Site RRA
[2021-06-03] MEDS ORDERED: [UNRECOGNIZED DRUG - REMARK] IVPB PRN (13:08)
[2021-06-03] MEDS ORDERED: Carvedilol 6.25 MG TAB PO SCH ×2 (13:30→13:32)
[2021-06-03 14:32] LABS: INR-International Normal Ratio 1.4; PTT 34.4 sec (22.9-36.1); Prothrombin Time 17.2 sec (12.0-14.7)
[2021-06-03 14:38] LABS: Anion Gap 13 mmol/L (10-20); BUN (Urea Nitrogen) 15 mg/dL (8.4-25.7); Calc. Creatinine Clearance 0 mL/min (70-130); Calcium 9.8 mg/dL (7.8-10.44); Carbon Dioxide 27 mmol/L (23-31); Chloride 102 mmol/L (98-107); Glucose 149 mg/dL (83-110); Potassium 3.5 mmol/L (3.5-5.1); Sodium 138 mmol/L (136-145)
[2021-06-03] MEDS: Warfarin Sodium 5 MG TAB PO SCH (16:50)
[2021-06-03] MEDS ORDERED: Dexamethasone 10 MG/ML VIAL SLOW IVP SCH (21:00)
[2021-06-03] MEDS: Mometasone 200 MCG/Formoterol 5 MCG 120 PUFF INHALER INH SCH (23:02)
[2021-06-04] MEDS: hydrOXYzine 10 MG TAB PO PRN (02:54)
[2021-06-04] MEDS: Mometasone 200 MCG/Formoterol 5 MCG 120 PUFF INHALER INH SCH ×2 (05:25→19:44)
[2021-06-04] MEDS ORDERED: Allopurinol 300 MG TAB PO PRN (07:51)
[2021-06-04] MEDS ORDERED: Carvedilol 3.125 MG TAB PO SCH (08:00)
[2021-06-04] MEDS ORDERED: Carvedilol 6.25 MG TAB PO SCH (08:00)
[2021-06-04] MEDS: FLUoxetine HCl 20 MG CAP PO SCH (08:07)
[2021-06-04] MEDS: Cholecalciferol 1,000 UNITS (25 MCG) TAB PO SCH (08:08)
[2021-06-04] MEDS: Furosemide 40 MG TAB PO SCH (08:08)
[2021-06-04] MEDS: Zinc Sulfate 220 MG CAP PO SCH (08:08)
[2021-06-04] MEDS: Lisinopril/Hydrochlorothiazide 20 mg/12.5 mg Tablet PO SCH ×2 (08:08→21:24)
[2021-06-04] MEDS: Carvedilol 6.25 MG TAB PO SCH ×2 (08:09→21:25)
[2021-06-04] MEDS: Ascorbic Acid 500 mg Chewable Tablet PO SCH (08:09)
[2021-06-04 08:43] LABS: Actual Bicarbonate (HCO3a) 29.9 mEq/L (22-28); Base Excess (BEa) 4.1 mEq/L (-2.0 to +3.0); CO2 Tension 49.5 mmHg (35.0-45.0); Carboxyhemoglobin (COHb) 0.4 gm% (0.0-3.0); Hemoglobin (Hb) 14.3 g/dL (14.0-18.0); O2 Tension (PaO2), arterial 63.2 mmHg (> 70.0); Potassium - ABG Lab 3.31 mmol/L (3.70-5.30)
[2021-06-04 08:45] LABS: ALV-art Gradient 103.085 mmHg (0-20); Puncture Site RRA
[2021-06-04 09:12] LABS: Hemoglobin 14.4 g/dL (14.0-18.0); Mean Corpuscular Volume 87.3 fL (78.0-98.0); RBC Distribution Width 15.2 % (11.5-14.5); Red Blood Cell (RBC) Count 5.33 mill/uL (4.70-6.10)
[2021-06-04 09:22] LABS: INR-International Normal Ratio 1.5; Prothrombin Time 18.2 sec (12.0-14.7)
[2021-06-04 09:30] LABS: Anion Gap 15 mmol/L (10-20); BUN (Urea Nitrogen) 17 mg/dL (8.4-25.7); Calc. Creatinine Clearance 178 mL/min (70-130); Calcium 9.8 mg/dL (7.8-10.44); Carbon Dioxide 27 mmol/L (23-31); Chloride 101 mmol/L (98-107); Glucose 182 mg/dL (83-110); Potassium 3.5 mmol/L (3.5-5.1); Sodium 139 mmol/L (136-145)
[2021-06-04 12:28] LABS: Anisocytosis SLIGHT = 6-15 cells (100X) (0-5/hpf); Band 6 % (5-11); Lymphocytes 1 % (21-51); MDiff Complete? YES; Mean Platelet Volume 7.3 fL (7.4-10.4); Monocytes 2 % (0-10); Neutrophil 91 % (42-75); Platelet Count 343 thou/uL (130-400); Platelet Morphology Comment Appears Adequate; Vacuoles SLIGHT; White Blood Cell (WBC) Count 23.5 thou/uL (4.8-10.8)
[2021-06-04] MEDS ORDERED: Albuterol 200 PUFF (6.7GM INHALER) INH PRN (13:36)
[2021-06-04] MEDS ORDERED: Albuterol 200 PUFF (6.7GM INHALER) INH SCH (13:45)
[2021-06-04] MEDS: Warfarin Sodium 5 MG TAB PO SCH (17:24)
[2021-06-04] MEDS ORDERED: Tocilizumab 800 MG in Sodium Chloride 0.9% 100 ML IV SCH (17:45)
[2021-06-05] MEDS: Dexamethasone 10 MG/ML VIAL SLOW IVP SCH (02:45)
[2021-06-05 04:25] LABS: #Monocytes 1.1 thou/uL (0.11-0.59); #Neutrophils 18.9 thou/uL (1.40-6.50); %Eosinophils 0.1 % (0.0-10.0); %Lymphocytes 4.6 % (21.0-51.0); %Monocytes 5.1 % (0.0-10.0); %Neutrophils 90.2 % (42.0-75.0); Hemoglobin 12.8 g/dL (14.0-18.0); Mean Corpuscular HGB CONC 32.2 g/dL (32.0-36.0); Mean Corpuscular Volume 87.1 fL (78.0-98.0); Mean Platelet Volume 7.3 fL (7.4-10.4); Platelet Count 292 thou/uL (130-400); RBC Distribution Width 15.1 % (11.5-14.5); Red Blood Cell (RBC) Count 4.57 mill/uL (4.70-6.10); White Blood Cell (WBC) Count 20.9 thou/uL (4.8-10.8)
[2021-06-05 04:31] LABS: INR-International Normal Ratio 1.9
[2021-06-05 04:42] LABS: Anion Gap 12 mmol/L (10-20); BUN (Urea Nitrogen) 19 mg/dL (8.4-25.7); CRP (Inflammatory) 13.96 mg/dL (= or < 0.5); Calc. Creatinine Clearance 182 mL/min (70-130); Calcium 9.4 mg/dL (7.8-10.44); Carbon Dioxide 33 mmol/L (23-31); Chloride 99 mmol/L (98-107); Glucose 151 mg/dL (83-110); Potassium 3.3 mmol/L (3.5-5.1); Sodium 141 mmol/L (136-145)
[2021-06-05] MEDS: Mometasone 200 MCG/Formoterol 5 MCG 120 PUFF INHALER INH SCH ×2 (05:57→18:11)
[2021-06-05] MEDS: Ascorbic Acid 500 mg Chewable Tablet PO SCH (09:17)
[2021-06-05] MEDS: Lisinopril/Hydrochlorothiazide 20 mg/12.5 mg Tablet PO SCH ×2 (09:17→21:17)
[2021-06-05] MEDS: FLUoxetine HCl 20 MG CAP PO SCH (09:18)
[2021-06-05] MEDS: Cholecalciferol 1,000 UNITS (25 MCG) TAB PO SCH (09:18)
[2021-06-05] MEDS: Zinc Sulfate 220 MG CAP PO SCH (09:18)
[2021-06-05] MEDS: Carvedilol 6.25 MG TAB PO SCH ×2 (09:18→21:17)
[2021-06-05] MEDS: Furosemide 40 MG TAB PO SCH (09:19)
[2021-06-05 09:27] LABS: ALT (SGPT) 12 U/L (8-55); AST (SGOT) 24 U/L (5-34); Alkaline Phosphatase 69 U/L (40-110); Bilirubin, Direct 0.3 mg/dL (0.1-0.3); Bilirubin, Total 0.5 mg/dL (0.2-1.2); Protein, Total 5.8 g/dL (5.8-8.1)
[2021-06-05] MEDS ORDERED: BARICITINIB 2 MG TAB PO SCH (11:45)
[2021-06-05] MEDS: Acetaminophen 325 MG TAB PO PRN (12:55)
[2021-06-05] MEDS: Warfarin Sodium 5 MG TAB PO SCH (16:22)
[2021-06-05] MEDS ORDERED: Potassium Chloride 20 MEQ TAB PO SCH (17:30)
[2021-06-06] MEDS: Dexamethasone 10 MG/ML VIAL SLOW IVP SCH (02:23)
[2021-06-06] MEDS: Acetaminophen 325 MG TAB PO PRN (02:23)
[2021-06-06] MEDS: Carvedilol 6.25 MG TAB PO SCH ×2 (09:05→20:40)
[2021-06-06] MEDS: Ascorbic Acid 500 mg Chewable Tablet PO SCH (09:08)
[2021-06-06] MEDS: Cholecalciferol 1,000 UNITS (25 MCG) TAB PO SCH (09:08)
[2021-06-06] MEDS: BARICITINIB 2 MG TAB PO SCH (09:08)
[2021-06-06] MEDS: FLUoxetine HCl 20 MG CAP PO SCH (09:09)
[2021-06-06] MEDS: Lisinopril/Hydrochlorothiazide 20 mg/12.5 mg Tablet PO SCH ×2 (09:09→20:40)
[2021-06-06] MEDS: Zinc Sulfate 220 MG CAP PO SCH (09:10)
[2021-06-06] MEDS: Furosemide 40 MG TAB PO SCH (09:10)
[2021-06-06] MEDS: Mometasone 200 MCG/Formoterol 5 MCG 120 PUFF INHALER INH SCH ×2 (09:25→18:24)
[2021-06-06] MEDS: Warfarin Sodium 5 MG TAB PO SCH (17:28)
[2021-06-06] MEDS: Cephalexin 250 MG CAP PO SCH (17:28)
[2021-06-06] MEDS: Dexamethasone 4 mg/ml Vial SLOW IVP SCH (20:40)
[2021-06-06] MEDS: hydrOXYzine 10 MG TAB PO PRN (20:56)
[2021-06-07 04:07] LABS: INR-International Normal Ratio 2.9; Prothrombin Time 30.5 sec (12.0-14.7)
[2021-06-07 04:19] LABS: Anion Gap 13 mmol/L (10-20); BUN (Urea Nitrogen) 35 mg/dL (8.4-25.7); CRP (Inflammatory) 9.58 mg/dL (= or < 0.5); Calc. Creatinine Clearance 172 mL/min (70-130); Carbon Dioxide 33 mmol/L (23-31); Chloride 98 mmol/L (98-107); Glucose 216 mg/dL (83-110); Potassium 3.5 mmol/L (3.5-5.1); Sodium 140 mmol/L (136-145)
[2021-06-07 04:51] LABS: Band 4 % (5-11); Hemoglobin 13.4 g/dL (14.0-18.0); Hypochromia SLIGHT = 6-15 cells (100X) (0-5/hpf); Lymphocytes 6 % (21-51); MDiff Complete? YES; Mean Corpuscular HGB CONC 31.1 g/dL (32.0-36.0); Mean Corpuscular Hemoglobin 27.2 pg (27.0-31.0); Mean Corpuscular Volume 87.6 fL (78.0-98.0); Mean Platelet Volume 7.5 fL (7.4-10.4); Monocytes 1 % (0-10); Myelocyte 1 % (0-0); Neutrophil 88 % (42-75); Platelet Count 321 thou/uL (130-400); Platelet Morphology Comment Appears Adequate; RBC Distribution Width 15.2 % (11.5-14.5); Red Blood Cell (RBC) Count 4.93 mill/uL (4.70-6.10); White Blood Cell (WBC) Count 20.2 thou/uL (4.8-10.8)
[2021-06-07] MEDS: Cephalexin 250 MG CAP PO SCH ×2 (05:15→17:15)
[2021-06-07] MEDS ORDERED: Doxepin HCl 10 MG CAP PO PRN (08:28)
[2021-06-07] MEDS ORDERED: methylPREDNISolone Sod Succ/PF 125 MG/2 ML VIAL IVP SCH (08:30)
[2021-06-07] MEDS ORDERED: Dexamethasone 4 mg/ml Vial SLOW IVP SCH (09:00)
[2021-06-07] MEDS: BARICITINIB 2 MG TAB PO SCH (09:44)
[2021-06-07] MEDS: Carvedilol 6.25 MG TAB PO SCH ×2 (09:44→20:34)
[2021-06-07] MEDS: FLUoxetine HCl 20 MG CAP PO SCH (09:45)
[2021-06-07] MEDS: Cholecalciferol 1,000 UNITS (25 MCG) TAB PO SCH (09:45)
[2021-06-07] MEDS: Ascorbic Acid 500 mg Chewable Tablet PO SCH (09:45)
[2021-06-07] MEDS: Furosemide 40 MG TAB PO SCH (09:46)
[2021-06-07] MEDS: Zinc Sulfate 220 MG CAP PO SCH (09:46)
[2021-06-07] MEDS: Lisinopril/Hydrochlorothiazide 20 mg/12.5 mg Tablet PO SCH ×2 (09:46→20:34)
[2021-06-07] MEDS: Dexamethasone 4 mg/ml Vial SLOW IVP SCH ×2 (09:47→20:34)
[2021-06-07] MEDS: Mometasone 200 MCG/Formoterol 5 MCG 120 PUFF INHALER INH SCH ×2 (09:47→19:14)
[2021-06-07] MEDS ORDERED: Warfarin Sodium 2.5 MG TAB PO SCH (17:00)
[2021-06-07] MEDS ORDERED: Sodium Chloride 0.9% 1,000 ML IV SCH (17:45)
[2021-06-07] MEDS: hydrOXYzine 10 MG TAB PO PRN (20:34)
[2021-06-08] MEDS: Mometasone 200 MCG/Formoterol 5 MCG 120 PUFF INHALER INH SCH ×2 (06:06→20:19)
[2021-06-08] MEDS: Cephalexin 250 MG CAP PO SCH ×2 (06:18→18:08)
[2021-06-08] MEDS: Ascorbic Acid 500 mg Chewable Tablet PO SCH (09:45)
[2021-06-08] MEDS: BARICITINIB 2 MG TAB PO SCH (09:45)
[2021-06-08] MEDS: Carvedilol 6.25 MG TAB PO SCH ×2 (09:46→20:57)
[2021-06-08] MEDS: Cholecalciferol 1,000 UNITS (25 MCG) TAB PO SCH (09:46)
[2021-06-08] MEDS: Dexamethasone 4 mg/ml Vial SLOW IVP SCH ×2 (09:46→20:58)
[2021-06-08] MEDS: Zinc Sulfate 220 MG CAP PO SCH (09:47)
[2021-06-08] MEDS: Lisinopril/Hydrochlorothiazide 20 mg/12.5 mg Tablet PO SCH ×2 (09:47→20:58)
[2021-06-08] MEDS: FLUoxetine HCl 20 MG CAP PO SCH (09:47)
[2021-06-08 12:19] LABS: INR-International Normal Ratio 3.4; Prothrombin Time 34.2 sec (12.0-14.7)
[2021-06-08] MEDS ORDERED: Haloperidol Lactate 5 MG/ML VIAL SLOW IVP PRN (12:33)
[2021-06-08 12:47] LABS: Band 8 % (5-11); Hemoglobin 15.4 g/dL (14.0-18.0); Hypochromia SLIGHT = 6-15 cells (100X) (0-5/hpf); Lymphocytes 6 % (21-51); MDiff Complete? YES; Mean Corpuscular HGB CONC 29.6 g/dL (32.0-36.0); Mean Corpuscular Hemoglobin 26.2 pg (27.0-31.0); Mean Corpuscular Volume 88.4 fL (78.0-98.0); Mean Platelet Volume 7.6 fL (7.4-10.4); Monocytes 2 % (0-10); Neutrophil 83 % (42-75); Platelet Count 332 thou/uL (130-400); Platelet Morphology Comment Appears Adequate; RBC Distribution Width 15.3 % (11.5-14.5); Reactive Lymphocytes 1 % (0-10); Red Blood Cell (RBC) Count 5.87 mill/uL (4.70-6.10)
[2021-06-08 13:36] LABS: ALT (SGPT) 37 U/L (8-55); AST (SGOT) 59 U/L (5-34); Albumin 3.6 g/dL (3.4-4.8); Alkaline Phosphatase 110 U/L (40-110); Anion Gap 15 mmol/L (10-20); BUN (Urea Nitrogen) 34 mg/dL (8.4-25.7); Bilirubin, Direct 0.3 mg/dL (0.1-0.3); Bilirubin, Total 0.9 mg/dL (0.2-1.2); Calc. Creatinine Clearance 150 mL/min (70-130); Calcium 10.1 mg/dL (7.8-10.44); Carbon Dioxide 33 mmol/L (23-31); Chloride 97 mmol/L (98-107); Glucose 216 mg/dL (83-110); Potassium 4.1 mmol/L (3.5-5.1); Protein, Total 7.4 g/dL (5.8-8.1); Sodium 141 mmol/L (136-145)
[2021-06-08] MEDS: Warfarin Sodium 1 MG TAB PO SCH (18:08)
[2021-06-09 04:16] LABS: INR-International Normal Ratio 3.8; Prothrombin Time 37.7 sec (12.0-14.7)
[2021-06-09 04:22] LABS: Hemoglobin 13.7 g/dL (14.0-18.0); Mean Corpuscular HGB CONC 30.3 g/dL (32.0-36.0); Mean Corpuscular Hemoglobin 26.9 pg (27.0-31.0); Mean Corpuscular Volume 88.7 fL (78.0-98.0); Mean Platelet Volume 7.5 fL (7.4-10.4); Platelet Count 281 thou/uL (130-400); RBC Distribution Width 15.1 % (11.5-14.5); Red Blood Cell (RBC) Count 5.09 mill/uL (4.70-6.10); White Blood Cell (WBC) Count 16.7 thou/uL (4.8-10.8)
[2021-06-09 04:27] LABS: Anion Gap 13 mmol/L (10-20); BUN (Urea Nitrogen) 36 mg/dL (8.4-25.7); CRP (Inflammatory) 5.53 mg/dL (= or < 0.5); Calc. Creatinine Clearance 169 mL/min (70-130); Calcium 9.7 mg/dL (7.8-10.44); Carbon Dioxide 34 mmol/L (23-31); Chloride 98 mmol/L (98-107); Glucose 252 mg/dL (83-110); Potassium 3.9 mmol/L (3.5-5.1); Sodium 141 mmol/L (136-145)
[2021-06-09 04:54] LABS: MDiff Complete? YES
[2021-06-09 04:55] LABS: Band 8 % (5-11); Lymphocytes 1 % (21-51); Monocytes 4 % (0-10); Myelocyte 2 % (0-0); Neutrophil 85 % (42-75)
[2021-06-09] MEDS: Cephalexin 250 MG CAP PO SCH ×2 (05:17→17:44)
[2021-06-09] MEDS: Mometasone 200 MCG/Formoterol 5 MCG 120 PUFF INHALER INH SCH ×2 (06:23→20:08)
[2021-06-09] MEDS: Ascorbic Acid 500 mg Chewable Tablet PO SCH (09:43)
[2021-06-09] MEDS: Dexamethasone 4 mg/ml Vial SLOW IVP SCH ×2 (09:44→20:36)
[2021-06-09] MEDS: Cholecalciferol 1,000 UNITS (25 MCG) TAB PO SCH (09:44)
[2021-06-09] MEDS: BARICITINIB 2 MG TAB PO SCH (09:44)
[2021-06-09] MEDS: Carvedilol 6.25 MG TAB PO SCH ×2 (09:44→20:36)
[2021-06-09] MEDS: Lisinopril/Hydrochlorothiazide 20 mg/12.5 mg Tablet PO SCH ×2 (09:45→20:36)
[2021-06-09] MEDS: Zinc Sulfate 220 MG CAP PO SCH (09:45)
[2021-06-09] MEDS: FLUoxetine HCl 20 MG CAP PO SCH (09:45)
[2021-06-09] MEDS: Warfarin Sodium 1 MG TAB PO SCH (17:45)
[2021-06-10 04:07] LABS: #Eosinphils 0.1 thou/uL (0.0-0.7); #Lymphocytes 0.4 thou/uL (1.20-3.40); #Monocytes 0.4 thou/uL (0.11-0.59); #Neutrophils 13.6 thou/uL (1.40-6.50); %Eosinophils 0.4 % (0.0-10.0); %Lymphocytes 2.5 % (21.0-51.0); %Monocytes 2.7 % (0.0-10.0); %Neutrophils 94.5 % (42.0-75.0); Hemoglobin 13.8 g/dL (14.0-18.0); Mean Corpuscular HGB CONC 30.3 g/dL (32.0-36.0); Mean Corpuscular Hemoglobin 26.6 pg (27.0-31.0); Mean Corpuscular Volume 87.9 fL (78.0-98.0); Mean Platelet Volume 7.7 fL (7.4-10.4); Platelet Count 283 thou/uL (130-400); RBC Distribution Width 15.2 % (11.5-14.5); White Blood Cell (WBC) Count 14.4 thou/uL (4.8-10.8)
[2021-06-10 04:22] LABS: Anion Gap 11 mmol/L (10-20); BUN (Urea Nitrogen) 35 mg/dL (8.4-25.7); CRP (Inflammatory) 3.77 mg/dL (= or < 0.5); Calc. Creatinine Clearance 176 mL/min (70-130); Calcium 9.5 mg/dL (7.8-10.44); Carbon Dioxide 34 mmol/L (23-31); Chloride 100 mmol/L (98-107); Glucose 258 mg/dL (83-110); Potassium 4.2 mmol/L (3.5-5.1); Sodium 141 mmol/L (136-145)
[2021-06-10 04:38] LABS: INR-International Normal Ratio 3.7; Prothrombin Time 37.2 sec (12.0-14.7)
[2021-06-10] MEDS: Cephalexin 250 MG CAP PO SCH ×2 (05:44→18:14)
[2021-06-10] MEDS: Mometasone 200 MCG/Formoterol 5 MCG 120 PUFF INHALER INH SCH ×2 (06:21→20:30)
[2021-06-10] MEDS: BARICITINIB 2 MG TAB PO SCH (09:58)
[2021-06-10] MEDS: Carvedilol 6.25 MG TAB PO SCH ×2 (09:58→21:23)
[2021-06-10] MEDS: Ascorbic Acid 500 mg Chewable Tablet PO SCH (09:58)
[2021-06-10] MEDS: Dexamethasone 4 mg/ml Vial SLOW IVP SCH ×2 (09:59→21:23)
[2021-06-10] MEDS: FLUoxetine HCl 20 MG CAP PO SCH (09:59)
[2021-06-10] MEDS: Lisinopril/Hydrochlorothiazide 20 mg/12.5 mg Tablet PO SCH ×2 (09:59→21:23)
[2021-06-10] MEDS: Cholecalciferol 1,000 UNITS (25 MCG) TAB PO SCH (09:59)
[2021-06-10] MEDS: Zinc Sulfate 220 MG CAP PO SCH (10:00)
[2021-06-10] MEDS ORDERED: Furosemide 40 MG/4 ML VIAL SLOW IVP SCH (13:30)
[2021-06-10] MEDS ORDERED: Dextrose 50% Abboject 50 ML SYRINGE SLOW IVP PRN (14:38)
[2021-06-10] MEDS ORDERED: Dextrose 5% in Water 1,000 ML IV PRN (14:38)
[2021-06-10] MEDS: HumaLOG 300 UNITS/3 ML VIAL SC PRN (18:34)
[2021-06-10] MEDS: Lantus 1000 UNITS/10 ML VIAL SC SCH (21:27)
[2021-06-11 04:31] LABS: INR-International Normal Ratio 3.5; Prothrombin Time 35.2 sec (12.0-14.7)
[2021-06-11 04:47] LABS: ALT (SGPT) 70 U/L (8-55); AST (SGOT) 45 U/L (5-34); Alkaline Phosphatase 117 U/L (40-110); Anion Gap 12 mmol/L (10-20); BUN (Urea Nitrogen) 33 mg/dL (8.4-25.7); Bilirubin, Direct 0.4 mg/dL (0.1-0.3); Bilirubin, Total 0.7 mg/dL (0.2-1.2); Calc. Creatinine Clearance 179 mL/min (70-130); Carbon Dioxide 35 mmol/L (23-31); Chloride 97 mmol/L (98-107); Glucose 234 mg/dL (83-110); Potassium 4.3 mmol/L (3.5-5.1); Protein, Total 5.6 g/dL (5.8-8.1); Sodium 140 mmol/L (136-145)
[2021-06-11] MEDS: Cephalexin 250 MG CAP PO SCH ×2 (05:15→17:25)
[2021-06-11 05:19] LABS: Band 2 % (5-11); Hemoglobin 13.8 g/dL (14.0-18.0); Lymphocytes 4 % (21-51); MDiff Complete? YES; Mean Corpuscular HGB CONC 30.3 g/dL (32.0-36.0); Mean Corpuscular Hemoglobin 26.4 pg (27.0-31.0); Mean Corpuscular Volume 87.2 fL (78.0-98.0); Mean Platelet Volume 7.5 fL (7.4-10.4); Metamyelocyte 2 % (0-0); Monocytes 1 % (0-10); Neutrophil 91 % (42-75); Platelet Count 281 thou/uL (130-400); RBC Distribution Width 15.1 % (11.5-14.5); Red Blood Cell (RBC) Count 5.21 mill/uL (4.70-6.10); White Blood Cell (WBC) Count 17.3 thou/uL (4.8-10.8)
[2021-06-11] MEDS: HumaLOG 300 UNITS/3 ML VIAL SC PRN ×2 (05:29→17:25)
[2021-06-11] MEDS: Ascorbic Acid 500 mg Chewable Tablet PO SCH (09:44)
[2021-06-11] MEDS: BARICITINIB 2 MG TAB PO SCH (09:45)
[2021-06-11] MEDS: Cholecalciferol 1,000 UNITS (25 MCG) TAB PO SCH (09:45)
[2021-06-11] MEDS: Carvedilol 6.25 MG TAB PO SCH ×2 (09:45→20:11)
[2021-06-11] MEDS: Mometasone 200 MCG/Formoterol 5 MCG 120 PUFF INHALER INH SCH ×2 (09:45→18:34)
[2021-06-11] MEDS: Dexamethasone 4 mg/ml Vial SLOW IVP SCH ×2 (09:45→20:20)
[2021-06-11] MEDS: FLUoxetine HCl 20 MG CAP PO SCH (09:46)
[2021-06-11] MEDS: Lantus 1000 UNITS/10 ML VIAL SC SCH ×2 (09:47→20:17)
[2021-06-11] MEDS: Zinc Sulfate 220 MG CAP PO SCH (09:48)
[2021-06-11] MEDS: Lisinopril/Hydrochlorothiazide 20 mg/12.5 mg Tablet PO SCH ×2 (09:48→20:17)
[2021-06-11] MEDS ORDERED: Warfarin Sodium 1 MG TAB PO SCH ×2 (14:45→17:00)
[2021-06-11] MEDS ORDERED: HumaLOG 300 UNITS/3 ML VIAL SC PRN (21:45)
[2021-06-12 04:30] LABS: Mean Corpuscular HGB CONC 30.5 g/dL (32.0-36.0); Mean Corpuscular Hemoglobin 26.8 pg (27.0-31.0); Mean Corpuscular Volume 87.8 fL (78.0-98.0); Mean Platelet Volume 7.7 fL (7.4-10.4); Platelet Count 301 thou/uL (130-400); Red Blood Cell (RBC) Count 5.22 mill/uL (4.70-6.10); White Blood Cell (WBC) Count 17.9 thou/uL (4.8-10.8)
[2021-06-12 04:51] LABS: Calcium 9.1 mg/dL (7.8-10.44); Chloride 98 mmol/L (98-107); Potassium 4.6 mmol/L (3.5-5.1); Sodium 138 mmol/L (136-145)
[2021-06-12 05:10] LABS: BUN (Urea Nitrogen) 33 mg/dL (8.4-25.7); Calc. Creatinine Clearance 180 mL/min (70-130); Carbon Dioxide 32 mmol/L (23-31); Glucose 228 mg/dL (83-110)
[2021-06-12 05:11] LABS: Band 6 % (5-11); MDiff Complete? YES; Monocytes 1 % (0-10); Neutrophil 93 % (42-75)
[2021-06-12] MEDS: HumaLOG 300 UNITS/3 ML VIAL SC PRN ×2 (05:14→17:30)
[2021-06-12] MEDS: Cephalexin 250 MG CAP PO SCH ×2 (05:14→17:28)
[2021-06-12] MEDS: Mometasone 200 MCG/Formoterol 5 MCG 120 PUFF INHALER INH SCH ×2 (06:04→19:00)
[2021-06-12 06:24] LABS: Anion Gap 13 mmol/L (10-20)
[2021-06-12] MEDS: Carvedilol 6.25 MG TAB PO SCH ×2 (08:11→22:06)
[2021-06-12] MEDS: Lantus 1000 UNITS/10 ML VIAL SC SCH ×2 (08:11→22:06)
[2021-06-12] MEDS: Cholecalciferol 1,000 UNITS (25 MCG) TAB PO SCH (08:12)
[2021-06-12] MEDS: Dexamethasone 4 mg/ml Vial SLOW IVP SCH (08:12)
[2021-06-12] MEDS: Ascorbic Acid 500 mg Chewable Tablet PO SCH (08:12)
[2021-06-12] MEDS: BARICITINIB 2 MG TAB PO SCH (08:12)
[2021-06-12] MEDS: Lisinopril/Hydrochlorothiazide 20 mg/12.5 mg Tablet PO SCH ×2 (08:13→22:05)
[2021-06-12] MEDS: FLUoxetine HCl 20 MG CAP PO SCH (08:13)
[2021-06-12] MEDS: Zinc Sulfate 220 MG CAP PO SCH (08:14)
[2021-06-12 11:35] LABS: INR-International Normal Ratio 2.3; Prothrombin Time 25.4 sec (12.0-14.7)
[2021-06-12] MEDS ORDERED: Rocuronium Bromide 10 MG/ML (10ML VIAL) ONE (12:09)
[2021-06-12] MEDS ORDERED: PROPOFOL 200 MG/20 ML VIAL ONE (12:09)
[2021-06-12 13:11] VITALS: BMI 49.8
[2021-06-12] MEDS: Warfarin Sodium 1 MG TAB PO SCH (17:30)
[2021-06-13] MEDS: Acetaminophen 325 MG TAB PO PRN (05:00)
[2021-06-13] MEDS: Cephalexin 250 MG CAP PO SCH ×2 (05:00→19:29)
[2021-06-13 05:13] LABS: Hemoglobin 14.9 g/dL (14.0-18.0); Mean Corpuscular HGB CONC 30.3 g/dL (32.0-36.0); Mean Corpuscular Hemoglobin 26.5 pg (27.0-31.0); Mean Corpuscular Volume 87.6 fL (78.0-98.0); Mean Platelet Volume 7.8 fL (7.4-10.4); Platelet Count 306 thou/uL (130-400); RBC Distribution Width 15.3 % (11.5-14.5); Red Blood Cell (RBC) Count 5.61 mill/uL (4.70-6.10); White Blood Cell (WBC) Count 21.2 thou/uL (4.8-10.8)
[2021-06-13 05:22] LABS: Anion Gap 15 mmol/L (10-20); BUN (Urea Nitrogen) 35 mg/dL (8.4-25.7); Calc. Creatinine Clearance 175 mL/min (70-130); Calcium 8.9 mg/dL (7.8-10.44); Carbon Dioxide 32 mmol/L (23-31); Chloride 97 mmol/L (98-107); Glucose 207 mg/dL (83-110); Potassium 4.8 mmol/L (3.5-5.1); Sodium 139 mmol/L (136-145)
[2021-06-13 08:13] VITALS: TEMP 97.5
[2021-06-13] MEDS: Lisinopril/Hydrochlorothiazide 20 mg/12.5 mg Tablet PO SCH (08:57)
[2021-06-13] MEDS: BARICITINIB 2 MG TAB PO SCH (08:57)
[2021-06-13] MEDS: Zinc Sulfate 220 MG CAP PO SCH (08:58)
[2021-06-13] MEDS: Carvedilol 6.25 MG TAB PO SCH ×2 (08:58→21:00)
[2021-06-13] MEDS: FLUoxetine HCl 20 MG CAP PO SCH (08:58)
[2021-06-13] MEDS: Ascorbic Acid 500 mg Chewable Tablet PO SCH (08:58)
[2021-06-13] MEDS: Mometasone 200 MCG/Formoterol 5 MCG 120 PUFF INHALER INH SCH ×2 (08:59→18:57)
[2021-06-13] MEDS ORDERED: Dexamethasone 4 mg/ml Vial SLOW IVP SCH (09:00)
[2021-06-13 09:30] LABS: Band 26 % (5-11); Lymphocytes 1 % (21-51); MDiff Complete? YES; Neutrophil 73 % (42-75); Platelet Morphology Comment Appears Adequate; RBC Morphology Normal
[2021-06-13] MEDS ORDERED: Ventilator Sedation Protocol 1 EACH FS ONE (09:42)
[2021-06-13] MEDS ORDERED: Rocuronium Bromide 10 MG/ML (10ML VIAL) IVP PRN (09:43)
[2021-06-13] MEDS ORDERED: methylPREDNISolone Sod Succ/PF 110 MG in Sodium Chloride 0.9% 250 ML 250 ML IVPB SCH (09:45)
[2021-06-13] MEDS ORDERED: methylPREDNISolone Sod Succ/PF 125 MG/2 ML VIAL IVP SCH (09:45)
[2021-06-13] MEDS ORDERED: Propofol 1,000 MG/100 ML VIAL IV PRN (10:00)
[2021-06-13] MEDS ORDERED: Propofol BOLUS 1,000 MG/100 ML VIAL IV PRN (10:00)
[2021-06-13] MEDS ORDERED: Lorazepam 2 MG/ML VIAL SLOW IVP PRN (10:00)
[2021-06-13] MEDS ORDERED: Fentanyl CADD 100 ML IV SCH (10:00)
[2021-06-13] MEDS ORDERED: Succinylcholine Chloride 200 MG/10 ML VIAL FS SCH (10:00)
[2021-06-13] MEDS ORDERED: Morphine 2 MG/ML VIAL SLOW IVP PRN (10:00)
[2021-06-13] MEDS ORDERED: Fentanyl BOLUS 250 ML IVPB PRN (10:00)
[2021-06-13] MEDS ORDERED: Succinylcholine 200 MG/10 ml SYRINGE FS SCH (10:15)
[2021-06-13] MEDS ORDERED: Lactated Ringer's 1,000 ML IV SCH (10:45)
[2021-06-13] MEDS ORDERED: Fentanyl CADD 100 ML ONE (10:56)
[2021-06-13] MEDS: Lantus 1000 UNITS/10 ML VIAL SC SCH ×2 (11:49→21:00)
[2021-06-13] MEDS: Cholecalciferol 1,000 UNITS (25 MCG) TAB PO SCH (11:49)
[2021-06-13 11:51] LABS: Actual Bicarbonate (HCO3a) 30.5 mEq/L (22-28); Base Excess (BEa) 3.6 mEq/L (-2.0 to +3.0); CO2 Tension 54.9 mmHg (35.0-45.0); Calcium, Ionized (arterial) 1.16 mmol/L (1.12-1.30); Carboxyhemoglobin (COHb) 0.7 gm% (0.0-3.0); Hemoglobin (Hb) 15.3 g/dL (14.0-18.0); Potassium - ABG Lab 4.39 mmol/L (3.70-5.30); pH, Arterial 7.36 (7.35-7.45)
[2021-06-13 11:52] LABS: O2 Tension (PaO2), arterial 43.7 mmHg (> 70.0); Puncture Site LBA
[2021-06-13 11:53] LABS: ALV-art Gradient 600.675 mmHg (0-20)
[2021-06-13] MEDS ORDERED: Norepinephrine 8 MG/0.9% NS 250 ML ONE ×3 (12:21→18:57)
[2021-06-13 14:50] LABS: Prothrombin Time 22.5 sec (12.0-14.7)
[2021-06-13] MEDS ORDERED: Albumin 5% 500 ML ONE (15:49)
[2021-06-13] MEDS: Warfarin Sodium 1 MG TAB PO SCH (17:20)
[2021-06-13 18:30] VITALS: BP 67/42
[2021-06-13] MEDS ORDERED: Vasopressin 20 UNIT, Admixture Fee 1 EACH in Sodium Chloride 0.9% 50 ML IV PRN (19:52)
[2021-06-14] MEDS ORDERED: Pantoprazole 40 MG VIAL IVP SCH (09:00)
== END 2021-06-13 19:56 | disposition expired | DRG 208 ==
LOC: ERS 00:44 → ERHOLD 03:53 → OBSVTOIN 05:49 → 2SE 20:43 → IMCU/EMU 06-04 18:34
PROVIDERS: ADMIT Student in an Organized Health Care Education/Training Program; ATTEND Internal Medicine
PROC: 8E0ZXY6 Isolation (ICD-10-PCS; 2021-06-03)
PROC: XW0DXM6 Introduction of Baricitinib into Mouth and Pharynx, External Approach, New Technology Group 6 (ICD-10-PCS; 2021-06-05)
PROC: 5A1935Z Respiratory Ventilation, Less than 24 Consecutive Hours (ICD-10-PCS; principal; 2021-06-13)
PROC: 0BH18EZ Insertion of Endotracheal Airway into Trachea, Via Natural or Artificial Opening Endoscopic (ICD-10-PCS; 2021-06-13)
PROC: 0B978ZZ Drainage of Left Main Bronchus, Via Natural or Artificial Opening Endoscopic (ICD-10-PCS; 2021-06-13)
PROC: 02H633Z Insertion of Infusion Device into Right Atrium, Percutaneous Approach (ICD-10-PCS; 2021-06-13)
PROC: 3E033XZ Introduction of Vasopressor into Peripheral Vein, Percutaneous Approach (ICD-10-PCS; 2021-06-13)
DX: U07.1 COVID-19 (principal); J12.82 Pneumonia due to coronavirus disease 2019; J96.01 Acute respiratory failure with hypoxia; Z66 Do not resuscitate; J96.02 Acute respiratory failure with hypercapnia; G93.41 Metabolic encephalopathy; A41.89 Other specified sepsis; R65.20 Severe sepsis without septic shock; I47.2 Ventricular tachycardia; Z68.43 Body mass index [BMI] 50.0-59.9, adult; I42.9 Cardiomyopathy, unspecified; E66.2 Morbid (severe) obesity with alveolar hypoventilation; I48.20 Chronic atrial fibrillation, unspecified; I10 Essential (primary) hypertension; E87.6 Hypokalemia; J44.9 Chronic obstructive pulmonary disease, unspecified; I83.10 Varicose veins of unspecified lower extremity with inflammation; G47.33 Obstructive sleep apnea (adult) (pediatric); F39 Unspecified mood [affective] disorder; I48.0 Paroxysmal atrial fibrillation; M10.9 Gout, unspecified; I25.10 Atherosclerotic heart disease of native coronary artery without angina pectoris; E78.5 Hyperlipidemia, unspecified; I46.9 Cardiac arrest, cause unspecified; I95.9 Hypotension, unspecified; Z88.0 Allergy status to penicillin; Z91.041 Radiographic dye allergy status; Z79.82 Long term (current) use of aspirin; Z79.899 Other long term (current) drug therapy; Z79.01 Long term (current) use of anticoagulants; Z98.890 Other specified postprocedural states; Z87.891 Personal history of nicotine dependence
CPT/HCPCS: 36415; 36416; 36600; 71045; 80048; 80076; 80306; 82140; 82728; 82805; 83735; 84145; 84484; 85025; 85379; 85610; 85730; 86140; 93005; 93306; 94002; 94660; 94760; 96365; G0378; J1100; J1650; J1815; J1940; J1956; J2060; J2704; J2930; J3010; J3475; J7050; J7120; P9045